=== PATIENT | male | born 1970 | race Caucasian/White ===

== ENCOUNTER → 2022-08-10 15:55 | Outpatient (CLI) | payer MEDICARE, MEDICAID, SELFPAY ==
[2022-08-10 19:47] LABS: Alanine Aminotransferase 173 U/L (12-78); Albumin Level 4.9 g/dl (3.5-5.0); Albumin/Globulin Ratio 1.5 (1.1-1.8); Alkaline Phosphatase 123 U/L (38-126); Anion Gap 22.7 mEq/L (5-15); Aspartate Amino Transferase 176 U/L (17-59); Bilirubin,Total 0.6 mg/dl (0.2-1.3); Blood Urea Nitrogen 14 mg/dl (9-20); Calcium 10.9 mg/dl (8.4-10.2); Carbon Dioxide 24 mmol/L (22.0-30.0); Chloride 97 mmol/L (98-107); Chol/HDL Ratio 2.9 (1-3.5); Cholesterol 234 mg/dl (140-200); Estimated Glomerular Filt Rate 71 ml/min (>60); GFR (African American) 86 ML/MIN (>60); Globulin 3.3 g/dL (1.3-3.2); Glucose 92 mg/dl (74-100); HDL Cholesterol 81 mg/dl (40-60); Potassium 4.7 mmoL/L (3.5-5.1); Sodium 139 mmol/L (136-145); Total Protein,Serum 8.2 g/dl (6.3-8.2); Triglycerides 161 mg/dl (30-150); VLDL Cholesterol 32 mg/dL (0-40)
[2022-08-10 19:58] LABS: Direct LDL Cholesterol 122.53 mg/dL (100-129)
[2022-08-10 20:10] LABS: Basophils # 0.1 K/mm3 (0-0.2); Basophils % 1.5 % (0.1-2.0); Eosinophils # 0.4 K/mm3 (0.0-0.4); Eosinophils % 4.3 % (0.1-12.0); Hemoglobin 16.1 g/dL (14.1-18.0); Lymphocytes # 3.2 K/mm3 (0.7-4.5); Lymphocytes % 35.9 % (10-50); Mean Corpuscular HGB Conc 31.5 g/dL (31.8-35.4); Mean Corpuscular Hemoglobin 35.4 pg (27.0-31.2); Mean Corpuscular Volume 112.5 fl (80-94); Mean Platelet Volume 9.5 fl (7.4-10.4); Monocytes # 0.8 K/mm3 (0.1-1.0); Monocytes % 8.8 % (1.7-9.3); Neutrophils # 4.5 K/mm3 (1.8-7.8); Neutrophils % 49.6 % (37.0-80.0); Platelet Count 281 K/mm3 (142-424); Red Blood Count 4.54 M/mm3 (4.60-6.20); Red Cell Distribution Width 13.8 % (11.5-17.5); White Blood Count 9.1 K/mm3 (4.8-10.8)
[2022-08-10 20:19] LABS: Prostate Specific Ag Screen 2.5 ng/ml (0.0-4.0); Thyroid Stimulating Hormone 0.99 uIU/mL (0.465-4.68)
[2022-08-10 20:38] LABS: Vitamin B12 388 pg/mL (239-931)
== END ==
PROVIDERS: PCP Nurse Practitioner; Visit Provider Nurse Practitioner
DX: E78.5 Hyperlipidemia, unspecified (principal); I10 Essential (primary) hypertension; K21.9 Gastro-esophageal reflux disease without esophagitis; Z86.718 Personal history of other venous thrombosis and embolism; Z12.5 Encounter for screening for malignant neoplasm of prostate
CPT/HCPCS: 80053; 80061; 82607; 84443; 85025; G0103

== ENCOUNTER → 2023-05-09 23:41 | Outpatient (CLI) | payer MEDICARE, MEDICAID, SELFPAY ==
[2023-05-09 19:07] LABS: Basophils # 0.1 K/mm3 (0-0.2); Basophils % 0.8 % (0.1-2.0); Eosinophils # 0.6 K/mm3 (0.0-0.4); Eosinophils % 4.3 % (0.1-12.0); Hematocrit 48.7 % (42.0-52.0); Hemoglobin 15.7 g/dL (14.1-18.0); Lymphocytes # 3.4 K/mm3 (0.7-4.5); Lymphocytes % 26.4 % (10-50); Mean Corpuscular HGB Conc 32.3 g/dL (31.8-35.4); Mean Corpuscular Volume 108.3 fl (80-94); Mean Platelet Volume 7.9 fl (7.4-10.4); Monocytes # 0.9 K/mm3 (0.1-1.0); Neutrophils # 7.8 K/mm3 (1.8-7.8); Neutrophils % 61.4 % (37.0-80.0); Platelet Count 311 K/mm3 (142-424); Red Cell Distribution Width 13.8 % (11.5-17.5); White Blood Count 12.7 K/mm3 (4.8-10.8)
[2023-05-09 19:20] LABS: Alanine Aminotransferase 81 U/L (12-78); Albumin Level 4.7 g/dl (3.5-5.0); Albumin/Globulin Ratio 1.3 (1.1-1.8); Alkaline Phosphatase 171 U/L (38-126); Anion Gap 22.5 mEq/L (5-15); Aspartate Amino Transferase 107 U/L (17-59); Bilirubin,Total 0.5 mg/dl (0.2-1.3); Blood Urea Nitrogen 11 mg/dl (9-20); Calcium 9.8 mg/dl (8.4-10.2); Carbon Dioxide 21 mmol/L (22.0-30.0); Chloride 104 mmol/L (98-107); Chol/HDL Ratio 2.6 (1-3.5); Cholesterol 187 mg/dl (140-200); Estimated Glomerular Filt Rate 64 ml/min (>60); GFR (African American) 78 ML/MIN (>60); Globulin 3.7 g/dL (1.3-3.2); Glucose 91 mg/dl (74-100); HDL Cholesterol 73 mg/dl (40-60); Hemoglobin A1C 5.5 % (4.0-6.0); Potassium 4.5 mmoL/L (3.5-5.1); Sodium 143 mmol/L (136-145); Total Protein,Serum 8.4 g/dl (6.3-8.2); Triglycerides 195 mg/dl (30-150); VLDL Cholesterol 39 mg/dL (0-40)
[2023-05-09 19:32] LABS: Direct LDL Cholesterol 84.55 mg/dL (100-129)
[2023-05-09 19:52] LABS: Thyroid Stimulating Hormone 2.05 uIU/mL (0.465-4.68)
[2023-05-09 20:11] LABS: Vitamin B12 218 pg/mL (239-931)
[2023-05-11 16:40] LABS: Microalbumin/Creatinine Ratio 17.2
[2023-05-11 16:48] LABS: Creatinine,Urine Random 40 mg/dL (Not Estab.)
== END ==
PROVIDERS: PCP Nurse Practitioner; Visit Provider Nurse Practitioner
DX: E78.5 Hyperlipidemia, unspecified (principal); I10 Essential (primary) hypertension; K21.9 Gastro-esophageal reflux disease without esophagitis; R73.01 Impaired fasting glucose; Z12.5 Encounter for screening for malignant neoplasm of prostate; Z86.718 Personal history of other venous thrombosis and embolism; G89.29 Other chronic pain; M79.604 Pain in right leg
CPT/HCPCS: 80053; 80061; 82043; 82570; 82607; 83036; 84443; 85025

== ENCOUNTER 2024-03-14 07:37 | Outpatient (CLI) | payer MEDICARE, MEDICAID, SELFPAY ==
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
--- NOTE | 2024-03-14 07:38 | ECG_ITS ---
APPROVED REPORT Exam: Resting ECG HR:83 bpm ECG Measurements Heart Rate 83 AXES NV 154 P 27 QRSd 100 QRS 25 QT 356 T 69 QTc 395 Conclusion SINUS RHYTHM NORMAL ECG UNCONFIRMED REPORT Electronically signed by : Ashish Garcia MD 03/18/2024 18:57:41
--- NOTE | 2024-03-14 07:40 | US_ITS ---
FINAL REPORT CLINICAL HISTORY: evaluation of cirrhosis COMPARISON: None FINDINGS: Sonographic images of the right upper quadrant were obtained. The pancreas is partially obscured. The portal vein is patent with normal directional flow. It is at the upper limits of normal in size measuring 13 mm. The liver has a coarse hepatic echotexture with a lobular contour consistent with cirrhosis. There is a small amount of ascites. The gallbladder appears normal without evidence of gallstones.There is no evidence of biliary ductal dilatation.The common duct measures 4mm. There are 2 probable cysts in the right kidney measuring 1.9 cm and 3 cm. Note is made of a right pleural effusion. IMPRESSION: Cirrhosis. Small amount of ascites. Small right pleural effusion. Reviewed, Interpreted and Dictated by Ab Rosa III, MD Transcribed by Melisa Garcia Authenticated and . [facility]
--- NOTE | 2024-03-14 08:40 | XR_ITS ---
FINAL REPORT CLINICAL HISTORY: BLE edema, chest discomfort, palpitations COMPARISON: None FINDINGS: Two views of the chest were obtained. The heart size and pulmonary vascularity are within normal limits. The mediastinum is normal. A large right pleural effusion is present. There are right base opacities present, favor atelectasis over pneumonia. There is no pneumothorax. Postoperative change is present in the left hemithorax. IMPRESSION: Large right pleural effusion, with right base opacities present, favor atelectasis over pneumonia. Reviewed, Interpreted and Dictated by Ab Rosa III, MD Transcribed by Mary Hayward Authenticated and [facility]
[2024-03-14 09:53] LABS: Basophils # 0.1 K/mm3 (0-0.2); Basophils % 1.2 % (0.1-2.0); Eosinophils # 0.4 K/mm3 (0.0-0.4); Eosinophils % 4.6 % (0.1-12.0); Lymphocytes # 1.8 K/mm3 (0.7-4.5); Lymphocytes % 21.3 % (10-50); Mean Corpuscular HGB Conc 34.9 g/dL (31.8-35.4); Mean Corpuscular Hemoglobin 39.8 pg (27.0-31.2); Mean Platelet Volume 7.5 fl (7.4-10.4); Monocytes # 0.7 K/mm3 (0.1-1.0); Monocytes % 8.2 % (1.7-9.3); Neutrophils # 5.3 K/mm3 (1.8-7.8); Neutrophils % 64.8 % (37.0-80.0); Platelet Count 237 K/mm3 (142-424); Red Blood Count 3.78 M/mm3 (4.60-6.20); Red Cell Distribution Width 15.1 % (11.5-17.5); White Blood Count 8.2 K/mm3 (4.8-10.8)
[2024-03-14 10:28] LABS: Creatinine,Urine Random 84 mg/dL (Not Estab.)
[2024-03-14 10:32] LABS: Alanine Aminotransferase 56 U/L (12-78); Albumin Level 4.3 g/dl (3.5-5.0); Albumin/Globulin Ratio 1.2 (1.1-1.8); Alkaline Phosphatase 147 U/L (38-126); Anion Gap 16.2 mEq/L (5-15); Aspartate Amino Transferase 88 U/L (17-59); Blood Urea Nitrogen 21 mg/dl (9-20); Calcium 10.1 mg/dl (8.4-10.2); Carbon Dioxide 27 mmol/L (22.0-30.0); Chloride 103 mmol/L (98-107); Cholesterol 184 mg/dl (140-200); Estimated Glomerular Filt Rate 53 ml/min (>60); GFR (African American) 65 ML/MIN (>60); Globulin 3.6 g/dL (1.3-3.2); Glucose 96 mg/dl (74-100); HDL Cholesterol 62 mg/dl (40-60); Potassium 4.2 mmoL/L (3.5-5.1); Sodium 142 mmol/L (136-145); Total Protein,Serum 7.9 g/dl (6.3-8.2); Triglycerides 156 mg/dl (30-150); VLDL Cholesterol 31 mg/dL (0-40)
[2024-03-14 10:43] LABS: Direct LDL Cholesterol 83.39 mg/dL (100-129)
[2024-03-14 10:44] LABS: Microalbumin < 6.000 mg/L (0-16.7)
[2024-03-14 11:01] LABS: Thyroid Stimulating Hormone 1.59 uIU/mL (0.465-4.68)
[2024-03-14 11:20] LABS: Vitamin B12 191 pg/mL (239-931)
[2024-03-14 11:54] LABS: Hemoglobin A1C 5.4 % (4.0-6.0)
== END 2024-03-14 23:59 | disposition home or self-care (01) ==
LOC: RAD 07:38
PROVIDERS: PCP Nurse Practitioner; Visit Provider Nurse Practitioner
DX: R07.9 Chest pain, unspecified (principal); R00.2 Palpitations; R60.0 Localized edema; R74.8 Abnormal levels of other serum enzymes; F10.10 Alcohol abuse, uncomplicated; I10 Essential (primary) hypertension; E78.5 Hyperlipidemia, unspecified; R73.01 Impaired fasting glucose; Z68.31 Body mass index [BMI] 31.0-31.9, adult; Z87.891 Personal history of nicotine dependence
CPT/HCPCS: 36415; 71046; 76705; 80050; 80053; 80061; 82043; 82570; 82607; 83036; 84443; 85025; 93005; 93306

== ENCOUNTER 2024-03-21 09:23 | Outpatient (CLI) | payer MEDICARE, MEDICAID, SELFPAY ==
--- NOTE | 2024-03-21 09:32 | CT_ITS ---
FINAL REPORT TECHNIQUE: Axial CT images of the abdomen and pelvis were obtained before and after the administration of IV contrast. This study was performed with techniques to keep radiation doses as low as reasonably achievable (ALARA). Individualized dose reduction techniques using automated exposure control or adjustment of mA and/or kV according to the patient''s size were employed. CLINICAL HISTORY: Palpable epigastric mass, epigastric pain, abnorma COMPARISON: None FINDINGS: Abdomen: There is a large right pleural effusion. Right middle lobe and lower lobe atelectasis is noted. There is bilateral gynecomastia. There is a large right posterior diaphragmatic hernia containing fat and the right kidney. The heart is normal in size. The liver has a mildly lobular contour likely representing cirrhosis. Gallstones are noted in the gallbladder. The spleen is unremarkable. A right adrenal nodule is favored to represent an adenoma with no follow-up recommended as this is likely benign. The pancreas has an unremarkable appearance. Bilateral renal cysts are noted. The aorta is normal in caliber. There are vascular calcifications. A small amount of ascites is noted. Precontrast images demonstrate no evidence of nephrolithiasis. Pelvis: The appendix is not well visualized. The urinary bladder is unremarkable. No inflammatory process is seen. There is no evidence of mass or adenopathy. There is no evidence of bowel obstruction. There is a left inguinal hernia containing fat. Postoperative changes are noted from fusion at L5-S1. IMPRESSION: Probable cirrhosis with a small amount of ascites. Large posterior diaphragmatic hernia containing the right kidney. Cholelithiasis. Large right pleural effusion and atelectasis. Reviewed, Interpreted and Dictated by Ab Rosa III, MD Transcribed by Melisa Garcia Authenticated and [facility]
[2024-03-21 10:00] LABS: Blood Urea Nitrogen 18 mg/dl (9-20); Estimated Glomerular Filt Rate 71 ml/min (>60); GFR (African American) 85 ML/MIN (>60)
[2024-03-21] MEDS: IOPAMIDOL-370 (76%);100ML BOTTLE 75 ML IV (10:42)
[2024-03-21] MEDS: SODIUM CHLORIDE 0.9% 10ML SYR (RAD ONLY) 10 ML IV (10:42)
== END 2024-03-21 23:59 | disposition home or self-care (01) ==
LOC: RAD 09:23
PROVIDERS: PCP Nurse Practitioner; Visit Provider Nurse Practitioner
DX: R10.9 Unspecified abdominal pain (principal); Z83.79 Family history of other diseases of the digestive system; R74.8 Abnormal levels of other serum enzymes; F10.10 Alcohol abuse, uncomplicated
CPT/HCPCS: 36415; 74178; 82565; 84520; Q9967

== ENCOUNTER 2024-03-29 15:41 | Outpatient (CLI) | payer MEDICARE, MEDICAID, SELFPAY | END 2024-03-29 23:59 | disposition home or self-care (01) | PROVIDERS: PCP Nurse Practitioner; Visit Provider Physician Assistant | DX: R00.2 Palpitations (principal) | CPT/HCPCS: 93270 ==

== ENCOUNTER 2024-04-04 12:57 | Outpatient (CLI) | payer MEDICARE, MEDICAID, SELFPAY ==
[2024-04-04 13:57] LABS: Anion Gap 15.4 mEq/L (5-15); Blood Urea Nitrogen 36 mg/dl (9-20); Calcium 10.2 mg/dl (8.4-10.2); Carbon Dioxide 26 mmol/L (22.0-30.0); Chloride 100 mmol/L (98-107); Estimated Glomerular Filt Rate 35 ml/min (>60); GFR (African American) 43 ML/MIN (>60); Glucose 99 mg/dl (74-100); Potassium 4.4 mmoL/L (3.5-5.1); Sodium 137 mmol/L (136-145)
== END 2024-04-04 23:59 | disposition home or self-care (01) ==
PROVIDERS: PCP Nurse Practitioner; Visit Provider Physician Assistant
DX: K70.31 Alcoholic cirrhosis of liver with ascites (principal); J90 Pleural effusion, not elsewhere classified; R00.2 Palpitations; F10.10 Alcohol abuse, uncomplicated; R06.02 Shortness of breath; R07.89 Other chest pain; Z86.718 Personal history of other venous thrombosis and embolism; K21.9 Gastro-esophageal reflux disease without esophagitis; E78.49 Other hyperlipidemia; I10 Essential (primary) hypertension
CPT/HCPCS: 36415; 80048

== ENCOUNTER 2024-04-11 14:54 | Outpatient (CLI) | payer MEDICARE, MEDICAID, SELFPAY ==
[2024-04-11 16:09] LABS: Anion Gap 14.8 mEq/L (5-15); Blood Urea Nitrogen 21 mg/dl (9-20); Calcium 10.2 mg/dl (8.4-10.2); Carbon Dioxide 26 mmol/L (22.0-30.0); Chloride 104 mmol/L (98-107); Estimated Glomerular Filt Rate 64 ml/min (>60); GFR (African American) 77 ML/MIN (>60); Glucose 105 mg/dl (74-100); Potassium 4.8 mmoL/L (3.5-5.1); Sodium 140 mmol/L (136-145)
== END 2024-04-11 23:59 | disposition home or self-care (01) ==
LOC: LAB 14:55
PROVIDERS: PCP Nurse Practitioner; Visit Provider Physician Assistant
DX: E86.0 Dehydration (principal)
CPT/HCPCS: 36415; 80048

== ENCOUNTER 2024-04-16 13:20 | Outpatient (CLI) | payer MEDICARE, MEDICAID, SELFPAY ==
--- NOTE | 2024-04-16 13:20 | CT_ITS ---
FINAL REPORT TECHNIQUE: The patient was injected with IV contrast. Axial images were obtained of the chest by computed tomography. Precontrast images were also obtained. This study was performed with techniques to keep radiation doses as low as reasonably achievable (ALARA). Individualized dose reduction techniques using automated exposure control or adjustment of mA and/or kV according to the patient's size were employed. CLINICAL HISTORY: chest pain COMPARISON: CT abdomen and pelvis 03/21/2024 FINDINGS: CT OF THE CHEST WITH AND WITHOUT CONTRAST: There is no axillary adenopathy. There are small mediastinal nodes. Bilateral gynecomastia is noted. Heart size is normal. There is no pericardial effusion. There is a large right pleural effusion. Significant atelectasis is noted involving the right middle lobe and right lower lobe. There is a large right posterior diaphragmatic hernia containing the right kidney and fat, stable compared to the prior study. The liver has a lobular contour, likely representing cirrhosis. There is a stable right adrenal nodule. There are several mildly enlarged portal and portacaval nodes which are stable, nonspecific, and favored to be reactive. Multiple right renal cysts are noted. IMPRESSION: Large diaphragmatic hernia as described, large right pleural effusion, and atelectasis in the right middle lobe and right lower lobe. Appearance is stable compared to the prior study. Other findings are also stable. Reviewed, Interpreted and Dictated by Ab Rosa III, MD Transcribed by Melisa Garcia Authenticated and [facility]
[2024-04-16] MEDS: SODIUM CHLORIDE 0.9% 10ML SYR (RAD ONLY) 10 ML IV (13:46)
[2024-04-16] MEDS: IOPAMIDOL-370 (76%);100ML BOTTLE 75 ML IV (13:46)
== END 2024-04-16 23:59 | disposition home or self-care (01) ==
LOC: RAD 13:20
PROVIDERS: PCP Nurse Practitioner; Visit Provider Physician Assistant
DX: R07.89 Other chest pain (principal); R06.02 Shortness of breath; K44.9 Diaphragmatic hernia without obstruction or gangrene; J90 Pleural effusion, not elsewhere classified; J98.11 Atelectasis; Z87.891 Personal history of nicotine dependence
CPT/HCPCS: 71270; Q9967

== ENCOUNTER 2024-04-27 10:15 | Outpatient (CLI) | payer MEDICARE, MEDICAID, SELFPAY ==
[2024-04-27] VITALS (8 sets, daily range): BP systolic 103–133; BP diastolic 63–86; PULSE 84–94; RESP 16–18; TEMP 36.4–36.5; O2SAT 92–96; BMI 31.2
--- NOTE | 2024-04-27 10:16 | US_ITS ---
FINAL REPORT CLINICAL HISTORY: Right effusion - HOSEA MORAN -- 950 ML REMOVED FINDINGS: ULTRASOUND GUIDED RIGHT THORACENTESIS HISTORY: Right pleural effusion. ATTENDING PHYSICIAN: Dr. Rosa PHYSICIAN SINGLE RESOURCE BOSS: Sweetie Guerin PA-C TECHNIQUE: Informed consent was obtained from the patient. RiskS of the procedure were discussed with the patient prior to beginning. This included, but was not limited to, risk of pneumothorax requiring chest tube placement. Appropriate pocket was localized for drainage. The patient was prepped and draped in routine fashion over the right back. Local anesthesia was achieved with 1% lidocaine. Using imaging guidance with images acquired, an 18-gauge sheath needle was directed into the pleural fluid. Approximately 950 mL of fluid was aspirated. 150 mL was sent for laboratory analysis. Patient tolerated the procedure well and left the department in good condition. IMPRESSION: Successful ultrasound guided right thoracentesis. Reviewed, Interpreted and Dictated by Ab Rosa III, MD Transcribed by Sweetie Guerin PA-C Authenticated and [facility]
--- NOTE | 2024-04-27 10:58 | XR_ITS ---
FINAL REPORT CLINICAL HISTORY: Pleural effusion, Post thoracentesis COMPARISON: 03/14/2024 FINDINGS: Two views of the chest were obtained. The heart size and pulmonary vascularity are within normal limits. There are postoperative changes in the medial left thorax. There is a moderate right pleural effusion. Right base atelectasis is noted. There is no pneumothorax. The bony thorax is intact. IMPRESSION: Moderate right pleural effusion and right base atelectasis. Postoperative changes without pneumothorax. Reviewed, Interpreted and Dictated by Ab Rosa III, MD Transcribed by Melisa Garcia Authenticated and [facility]
[2024-04-27 13:40] LABS: Source, Body Fld. Thoracentesis Fluid; Volume,Body Fld. 950 mL
[2024-04-27 13:41] LABS: Appearance,Body Fld. Hazy; TNC,Body Fluid 3874 cells/uL (< 1000)
[2024-04-27 13:42] LABS: RBC,Body Fluid < 10 cells/uL (< 10 X 10^3)
[2024-04-27 14:29] LABS: Mononuclear WBCs,Body Fluid 80 %; Polynuclear WBC,Body Fluid 20 %
[2024-04-27 14:46] LABS: Lactate Dehydrogenase 198 U/L (313-618)
[2024-04-27 15:03] LABS: Albumin Level 4.5 g/dl (3.5-5.0); Chloride 106 mmol/L (98-107); Sodium 141 mmol/L (136-145)
[2024-04-27 15:06] LABS: Alanine Aminotransferase 104 U/L (12-78); Albumin/Globulin Ratio 1.3 (1.1-1.8); Alkaline Phosphatase 130 U/L (38-126); Aspartate Amino Transferase 95 U/L (17-59); Bilirubin,Total 0.7 mg/dl (0.2-1.3); Blood Urea Nitrogen 18 mg/dl (9-20); Carbon Dioxide 28 mmol/L (22.0-30.0); Creatinine Clearance Estimated 94 mL/min (50-200); Estimated Glomerular Filt Rate 58 ml/min (>60); GFR (African American) 70 ML/MIN (>60); Globulin 3.5 g/dL (1.3-3.2)
[2024-04-27 15:07] LABS: Calcium 9.8 mg/dl (8.4-10.2); Glucose 89 mg/dl (74-100)
[2024-04-29 22:07] LABS: Albumin, Body Fluid 3.6 g/dL (Not Estab.); LD, Body Fluid 165 IU/L (.); Protein, Body Fluid 5.8 g/dL (.)
== END 2024-04-27 13:38 | disposition home or self-care (01) ==
PROVIDERS: PCP Nurse Practitioner; Visit Provider Internal Medicine Pulmonary Disease
DX: J90 Pleural effusion, not elsewhere classified (principal)
CPT/HCPCS: 32555; 36415; 71046; 80053; 82042; 83615; 84155; 87070; 87205; 88112; 88305; 89051

== ENCOUNTER 2024-05-09 15:27 | Outpatient (CLI) | payer MEDICARE, MEDICAID, SELFPAY ==
[2024-05-09 16:28] LABS: Chloride 107 mmol/L (98-107); Potassium 4.7 mmoL/L (3.5-5.1); Sodium 138 mmol/L (136-145)
[2024-05-09 16:31] LABS: Anion Gap 12.7 mEq/L (5-15); Blood Urea Nitrogen 19 mg/dl (9-20); Calcium 9.7 mg/dl (8.4-10.2); Carbon Dioxide 23 mmol/L (22.0-30.0); Estimated Glomerular Filt Rate 53 ml/min (>60); GFR (African American) 65 ML/MIN (>60); Glucose 107 mg/dl (74-100)
== END 2024-05-09 23:59 | disposition home or self-care (01) ==
LOC: LAB 15:31
PROVIDERS: Internal Medicine Pulmonary Disease; PCP Nurse Practitioner; Visit Provider Physician Assistant
DX: K74.60 Unspecified cirrhosis of liver (principal)
CPT/HCPCS: 36415; 80048

== ENCOUNTER 2024-05-11 07:50 | Outpatient (CLI) | payer MEDICARE, MEDICAID, SELFPAY ==
--- NOTE | 2024-05-11 07:51 | US_ITS ---
FINAL REPORT CLINICAL HISTORY: .evaluate for fluid COMPARISON: None FINDINGS: ULTRASOUND ABDOMEN LIMITED: A limited ultrasound exam of the abdomen was performed in the right upper quadrant, the left upper quadrant, the left lower quadrant, and the right lower quadrant, to evaluate for the presence of ascites. No ascites was seen in any location within the abdomen, although a right pleural effusion was noted. IMPRESSION: Limited exam fails to reveal any ascitic fluid in the abdomen. A right pleural effusion is present. Reviewed, Interpreted and Dictated by Oren Aragon MD Transcribed by Mary Hayward Authenticated and [facility]
== END 2024-05-11 23:59 | disposition home or self-care (01) ==
LOC: RAD 07:51
PROVIDERS: PCP Nurse Practitioner; Visit Provider Internal Medicine Pulmonary Disease
DX: K70.30 Alcoholic cirrhosis of liver without ascites (principal); J90 Pleural effusion, not elsewhere classified
CPT/HCPCS: 76705

== ENCOUNTER 2024-07-03 08:40 | Outpatient (CLI) | payer MEDICARE, MEDICAID, SELFPAY ==
--- NOTE | 2024-07-03 | US_ITS ---
PROCEDURE INFORMATION: Exam: US Chest, Pleural Spaces Exam date and time: 07/03/2024 9:21 AM Age: 53 years old Clinical indication: Condition or disease; Other: RT pleural effusion TECHNIQUE: Imaging protocol: Real time ultrasound of the chest was performed with image documentation. Exam focused on the pleural spaces. COMPARISON: US CHEST 07/03/2024 9:21 AM FINDINGS: Pleural spaces: See Soft tissues finding. Soft tissues: Ultrasonographic images of the soft tissues in questions/right chest. Small to moderate sized pleural effusion. IMPRESSION: Ultrasonographic images of the soft tissues in questions/right chest. Small to moderate sized pleural effusion.
--- NOTE | 2024-07-03 08:54 | US_ITS ---
PROCEDURE INFORMATION: Exam: US Abdomen, Limited; Right Upper Quadrant Exam date and time: 07/03/2024 8:45 AM Age: 53 years old Clinical indication: Condition or disease; Liver condition; Cirrhosis; Alcoholic; Additional info: Screening TECHNIQUE: Imaging protocol: Real time ultrasound of the abdomen with image documentation. Limited exam focused on the right upper quadrant. Total images: 66 COMPARISON: US ABDOMEN LIMITED 05/11/2024 7:56 AM FINDINGS: Pleural spaces: Right pleural effusion. Liver: Heterogeneous appearance of the liver. Gallbladder: Multiple calcified gallstones are present. Biliary ducts: Common bile duct measures 4 mm. Pancreas: Visualized pancreas is unremarkable. Right kidney: Normal. No mass. No hydronephrosis. Intraperitoneal space: No free fluid. IMPRESSION: 1. Heterogeneous appearance of the liver. 2. Multiple calcified gallstones are present. 3. Right pleural effusion.
[2024-07-03 09:22] LABS: Alanine Aminotransferase 169 U/L (12-78); Albumin Level 5.1 g/dl (3.5-5.0); Albumin/Globulin Ratio 1.2 (1.1-1.8); Alkaline Phosphatase 143 U/L (38-126); Anion Gap 19.3 mEq/L (5-15); Aspartate Amino Transferase 154 U/L (17-59); Bilirubin,Total 1.1 mg/dl (0.2-1.3); Blood Urea Nitrogen 49 mg/dl (9-20); Calcium 10.3 mg/dl (8.4-10.2); Carbon Dioxide 22 mmol/L (22.0-30.0); Chloride 103 mmol/L (98-107); Estimated Glomerular Filt Rate 38 ml/min (>60); GFR (African American) 45 ML/MIN (>60); Globulin 4.1 g/dL (1.3-3.2); Glucose 103 mg/dl (74-100); Potassium 4.3 mmoL/L (3.5-5.1); Sodium 140 mmol/L (136-145); Total Protein,Serum 9.2 g/dl (6.3-8.2)
== END 2024-07-03 23:59 | disposition home or self-care (01) ==
LOC: RAD 08:41
PROVIDERS: PCP Nurse Practitioner; Visit Provider Internal Medicine
DX: K72.90 Hepatic failure, unspecified without coma (principal); K74.60 Unspecified cirrhosis of liver; R18.8 Other ascites; K70.30 Alcoholic cirrhosis of liver without ascites
CPT/HCPCS: 36415; 76604; 76705; 80053

== ENCOUNTER 2024-07-17 14:57 | Outpatient (CLI) | payer MEDICARE, MEDICAID, SELFPAY ==
[2024-07-17 16:06] LABS: Alanine Aminotransferase 123 U/L (12-78); Albumin Level 4.1 g/dl (3.5-5.0); Albumin/Globulin Ratio 1.4 (1.1-1.8); Alkaline Phosphatase 122 U/L (38-126); Anion Gap 14.3 mEq/L (5-15); Aspartate Amino Transferase 74 U/L (17-59); Bilirubin,Total 0.8 mg/dl (0.2-1.3); Blood Urea Nitrogen 23 mg/dl (9-20); Calcium 9.7 mg/dl (8.4-10.2); Carbon Dioxide 21 mmol/L (22.0-30.0); Chloride 110 mmol/L (98-107); Estimated Glomerular Filt Rate 64 ml/min (>60); GFR (African American) 77 ML/MIN (>60); Glucose 84 mg/dl (74-100); Potassium 4.3 mmoL/L (3.5-5.1); Sodium 141 mmol/L (136-145); Total Protein,Serum 7.1 g/dl (6.3-8.2)
== END 2024-07-17 23:59 | disposition home or self-care (01) ==
LOC: LAB 14:58
PROVIDERS: PCP Nurse Practitioner; Visit Provider Internal Medicine
DX: K72.90 Hepatic failure, unspecified without coma (principal); K74.60 Unspecified cirrhosis of liver
CPT/HCPCS: 36415; 80053

== ENCOUNTER 2024-07-26 15:01 | Outpatient (CLI) | payer MEDICARE, MEDICAID, SELFPAY ==
[2024-07-26 15:37] LABS: Alanine Aminotransferase 135 U/L (12-78); Albumin Level 4.4 g/dl (3.5-5.0); Albumin/Globulin Ratio 1.4 (1.1-1.8); Alkaline Phosphatase 165 U/L (38-126); Anion Gap 17.1 mEq/L (5-15); Aspartate Amino Transferase 81 U/L (17-59); Bilirubin,Total 1.1 mg/dl (0.2-1.3); Blood Urea Nitrogen 22 mg/dl (9-20); Calcium 9.9 mg/dl (8.4-10.2); Carbon Dioxide 18 mmol/L (22.0-30.0); Chloride 108 mmol/L (98-107); Estimated Glomerular Filt Rate 64 ml/min (>60); GFR (African American) 77 ML/MIN (>60); Globulin 3.2 g/dL (1.3-3.2); Glucose 115 mg/dl (74-100); Potassium 4.1 mmoL/L (3.5-5.1); Sodium 139 mmol/L (136-145); Total Protein,Serum 7.6 g/dl (6.3-8.2)
== END 2024-07-26 23:59 | disposition home or self-care (01) ==
LOC: LAB 15:03
PROVIDERS: PCP Nurse Practitioner; Visit Provider Internal Medicine
DX: K72.90 Hepatic failure, unspecified without coma (principal); K74.60 Unspecified cirrhosis of liver
CPT/HCPCS: 36415; 80053

== ENCOUNTER 2024-10-03 14:15 | Outpatient (CLI) | payer MEDICARE, MEDICAID, SELFPAY ==
[2024-10-03 18:01] LABS: Basophils # 0.1 K/mm3 (0-0.2); Basophils % 0.9 % (0.1-2.0); Eosinophils # 0.4 K/mm3 (0.0-0.4); Eosinophils % 3.2 % (0.1-12.0); Hematocrit 45.1 % (42.0-52.0); Hemoglobin 14.8 g/dL (14.1-18.0); Lymphocytes # 3.5 K/mm3 (0.7-4.5); Lymphocytes % 27.6 % (10-50); Mean Corpuscular HGB Conc 32.8 g/dL (31.8-35.4); Mean Corpuscular Volume 100.7 fl (80-94); Monocytes # 1.2 K/mm3 (0.1-1.0); Monocytes % 9.3 % (1.7-9.3); Neutrophils # 7.4 K/mm3 (1.8-7.8); Neutrophils % 58.8 % (37.0-80.0); Platelet Count 286 K/mm3 (142-424); Red Blood Count 4.48 M/mm3 (4.60-6.20); Red Cell Distribution Width 12.1 % (11.5-17.5); White Blood Count 12.6 K/mm3 (4.8-10.8)
[2024-10-03 18:42] LABS: Alanine Aminotransferase 70 U/L (12-78); Albumin/Globulin Ratio 1.4 (1.1-1.8); Alkaline Phosphatase 132 U/L (38-126); Anion Gap 18.9 mEq/L (5-15); Aspartate Amino Transferase 57 U/L (17-59); Blood Urea Nitrogen 23 mg/dl (9-20); Calcium 10.4 mg/dl (8.4-10.2); Carbon Dioxide 26 mmol/L (22.0-30.0); Chloride 103 mmol/L (98-107); Chol/HDL Ratio 2.7 (1-3.5); Cholesterol 130 mg/dl (140-200); Estimated Glomerular Filt Rate 58 ml/min (>60); GFR (African American) 70 ML/MIN (>60); Globulin 3.5 g/dL (1.3-3.2); Glucose 110 mg/dl (74-100); HDL Cholesterol 48 mg/dl (40-60); Potassium 3.9 mmoL/L (3.5-5.1); Sodium 144 mmol/L (136-145); Total Protein,Serum 8.5 g/dl (6.3-8.2); Triglycerides 209 mg/dl (30-150); VLDL Cholesterol 42 mg/dL (0-40)
[2024-10-03 18:54] LABS: Direct LDL Cholesterol 50.03 mg/dL (100-129)
[2024-10-03 18:58] LABS: Hemoglobin A1C 5.7 % (4.0-6.0)
[2024-10-03 19:13] LABS: Prostate Specific Ag Screen 2.9 ng/ml (0.0-4.0); Thyroid Stimulating Hormone 0.56 uIU/mL (0.465-4.68)
[2024-10-03 19:31] LABS: Creatinine,Urine Random 35 mg/dL (Not Estab.); Microalbumin < 6.000 mg/L (0-16.7)
[2024-10-03 19:32] LABS: Vitamin B12 998 pg/mL (239-931)
== END 2024-10-03 23:59 | disposition home or self-care (01) ==
LOC: LAB.DROPOF 10-04 10:24
PROVIDERS: PCP Nurse Practitioner; Visit Provider Nurse Practitioner
DX: I10 Essential (primary) hypertension (principal); E78.49 Other hyperlipidemia; K21.9 Gastro-esophageal reflux disease without esophagitis; R73.01 Impaired fasting glucose; K70.31 Alcoholic cirrhosis of liver with ascites; Z12.5 Encounter for screening for malignant neoplasm of prostate
CPT/HCPCS: 80053; 80061; 82043; 82570; 82607; 83036; 84443; 85025; G0103

== ENCOUNTER 2024-10-29 15:57 | Outpatient (CLI) | payer MEDICARE, MEDICAID, SELFPAY ==
--- NOTE | 2024-10-29 16:00 | XR_ITS ---
FINAL REPORT CLINICAL HISTORY: chronic left knee pain FINDINGS: AP, lateral and oblique views of the left knee were obtained. There is no prior exam for comparison. There is no acute osseous abnormality of the left knee. The joint space is preserved. The soft tissues are normal. There is no joint effusion. IMPRESSION: No acute osseous abnormality of the left knee. Reviewed, Interpreted and Dictated by Chiquita Kaur MD Transcribed by Carmen Painting Authenticated and [facility]
--- NOTE | 2024-10-29 16:00 | XR_ITS ---
FINAL REPORT CLINICAL HISTORY: chronic right hip pain COMPARISON: None FINDINGS: Two views of the right hip and an AP pelvis view were obtained. There is no acute osseous abnormality of the pelvis right hip. The joint space is preserved. There are surgical changes of the lumbosacral junction. Soft tissues are unremarkable. IMPRESSION: No acute osseous abnormality of the right hip. Reviewed, Interpreted and Dictated by Chiquita Kaur MD Transcribed by Carmen Painting Authenticated and [facility]
[2024-10-29 17:43] LABS: Albumin Level 4.4 g/dl (3.5-5.0); Chloride 106 mmol/L (98-107); Potassium 4.8 mmoL/L (3.5-5.1); Sodium 140 mmol/L (136-145)
[2024-10-29 17:46] LABS: Alanine Aminotransferase 44 U/L (12-78); Albumin/Globulin Ratio 1.4 (1.1-1.8); Alkaline Phosphatase 140 U/L (38-126); Anion Gap 14.8 mEq/L (5-15); Aspartate Amino Transferase 41 U/L (17-59); Bilirubin,Total 1.2 mg/dl (0.2-1.3); Blood Urea Nitrogen 18 mg/dl (9-20); Carbon Dioxide 24 mmol/L (22.0-30.0); Estimated Glomerular Filt Rate 58 ml/min (>60); GFR (African American) 70 ML/MIN (>60); Globulin 3.1 g/dL (1.3-3.2); Glucose 87 mg/dl (74-100); Total Protein,Serum 7.5 g/dl (6.3-8.2)
== END 2024-10-29 23:59 | disposition home or self-care (01) ==
LOC: RAD 15:58
PROVIDERS: PCP Nurse Practitioner; Visit Provider Nurse Practitioner
DX: M25.551 Pain in right hip (principal); G89.29 Other chronic pain; M25.562 Pain in left knee; K74.60 Unspecified cirrhosis of liver
CPT/HCPCS: 36415; 73502; 73562; 80053

== ENCOUNTER 2024-11-19 14:27 | Outpatient (CLI) | payer MEDICARE, MEDICAID, SELFPAY ==
--- NOTE | 2024-11-19 14:27 | CT_ITS ---
FINAL REPORT CLINICAL HISTORY: lung cancer screening former smoker quit 2 years ago, 1 ppd 30 years FINDINGS: Axial images were obtained from the lung apex to the mid abdomen by computed tomography. Low-dose protocol was utilized. CTDl vol(mGy): 2.90 DLP (mGy-cm): 107.33 FINDINGS: There is no axillary adenopathy. There is no hilar or mediastinal adenopathy. The heart size is normal. Previously noted large right pleural effusion has nearly completely resolved. There is scarring in the right lower lobe. There is volume loss in the right hemithorax. There is no suspicious pulmonary mass or nodule. Limited images of the upper abdomen demonstrate no acute abnormality. IMPRESSION: Near complete resolution of previously noted large right pleural effusion. No suspicious pulmonary mass or nodule. Lung RADS category 1. Follow-up low-dose chest CT in 12 months is recommended. Scarring and volume loss in the right lung. Lung RADS category S. Scarring and volume loss in the right lung. Reviewed, Interpreted and Dictated by Oren Aragon MD Transcribed by Johanna Bagley Authenticated and [facility]
[2024-11-19 15:35] VITALS: PULSE 55; PULSE 57
[2024-11-19] MEDS: ALBUTEROL 0.083% 2.5 MG/3 ML NEB IH (15:35)
== END 2024-11-19 23:59 | disposition home or self-care (01) ==
LOC: RAD 14:27
PROVIDERS: PCP Nurse Practitioner; Visit Provider Internal Medicine Pulmonary Disease
DX: F17.210 Nicotine dependence, cigarettes, uncomplicated (principal); R06.09 Other forms of dyspnea
CPT/HCPCS: 71271; 94060; 94618; 94640; 94726; 94729; J7613

== ENCOUNTER 2025-02-01 09:08 | Outpatient (CLI) | payer MEDICARE, MEDICAID, SELFPAY ==
--- NOTE | 2025-02-01 09:11 | US_ITS ---
FINAL REPORT TECHNIQUE: Multiple transverse and longitudinal images CLINICAL HISTORY: DECOMPENSATED CIRRHOSIS COMPARISON: 03/14/2024 FINDINGS: There is coarsening of the echotexture of the liver, also seen on prior exams, consistent with the clinical diagnosis of cirrhosis. No focal masses identified in the liver. There are gallstones present in the gallbladder without evidence of gallbladder wall thickening or biliary ductal dilatation. The pancreas is not well-seen on this exam. There is a hypoechoic focus in the right kidney, measuring up to 37 mm in size, with an appearance consistent with a benign cyst. IMPRESSION: 1. Cirrhosis of the liver is present, as seen on prior ultrasound examinations. 2. No focal mass is identified in the liver. 3. Uncomplicated cholelithiasis. Reviewed, Interpreted and Dictated by Levi Fontaine MD Transcribed by Mary Hayward Authenticated and [facility]
== END 2025-02-01 23:59 | disposition home or self-care (01) ==
LOC: RAD 09:09
PROVIDERS: PCP Nurse Practitioner; Visit Provider Internal Medicine
DX: K74.69 Other cirrhosis of liver (principal); K72.90 Hepatic failure, unspecified without coma; K80.20 Calculus of gallbladder without cholecystitis without obstruction
CPT/HCPCS: 76705

== ENCOUNTER → 2025-03-18 07:17 | Outpatient (CLI) | payer MEDICARE, MEDICAID, SELFPAY ==
--- OUTSIDE RECORDS SUMMARY | 2025-03-18 07:19 | XMS_ITS | Encounter Summary ---
Author Organization [facility] Address [address] [place] [address] Care Team Providers Care Japanese Professor Name Role Phone EnydZeynep schmitt Gm TRUONG Primary Care Provider [phone] Encounter Details Date Type Department Care Team (Late Contact Info) Description 02/19/2025 Results Follow-Up [facility] [address] [place] [address] Monica Bee MD [address] [place] [address] Social History Tobacco Use Types Packs/Day Years Used Date Smoking Tobacco: Former Cigarettes 0.5 31.7 0 09/12/1991 - 05/13/2023 Passive Smoke Exposure: Past Smokeless Tobacco: Never Alcohol Use Standard Drinks/Week Comments Not Currently 4 (1 standard drink = 0.6 oz pur e alcohol) PHQ-2 Answer Date Recorded Patient Health Questionnaire-2 Score 0 11/01/2024 PHQ-9 Answer Date Recorded Patient Health Questionnaire-9 Score 0 11/01/2024 Sex and Gender Information Value Date Recorded Sex Assigned at Not on file Legal Sex Male 8:29 PM EDT Gender Identity Not on file Sexual Orientation Not on file documented as of this encounter Plan of Treatment Upcoming Encounters Date Type Department Care Team (Late st Contact Info) Description 04/09/2025 9:00 AM EDT Clinical Support [facility] [address] [place] [address] Tiffany Leon, KALEB [address] [facility] [address] [place] [address] 07/18/2025 8:00 AM EST Office Visit [facility] [address] [place] [address] Sheyla Colin MD [address] [place] [address] documented as of this encounter Visit Diagnoses Not on filedocumented in this encounter Additional Health Concerns Assessment Noted Time PHQ-9 Depression Total Score: 0 11/01/19 25 10:26 AM EST A fall risk assessment has been complete d for the patient 01/10/2025 8:13 AM EDT A Body Mass Index follow-up plan has been documented for the patient 01/17/2025 12:04 AM EDT documented as of this encounter Care Teams Japanese Professor Relationship Specialty Start Date End Date Zeynep Schumacher APRN [address] [place] [address] PCP - General 06/21/24 documented as of this encounter
--- OUTSIDE RECORDS SUMMARY | 2025-03-18 07:19 | XMS_ITS | Encounter Summary ---
Author Organization [facility] Address [address] [place] [address] Care Team Providers Care Children'S Attendant Name Role Phone EndyZeynep schmitt Gm TRUONG Primary Care Provider [phone] Encounter Details Date Type Department Care Team (Late st Contact Info) Description 01/10/2025 Results Follow-Up [facility] Specialties [address] [place] [address] Leonardo Bautista MD [address] [place] [address] Social History Tobacco Use Types [...] Description 04/09/2025 9:00 AM EDT Clinical Support [facility] [address] [place] [address] Tiffany Leon, KALEB [address] [place] [address] 07/18/2025 8:00 AM EST Office Visit [facility] [address] [place] [address] Sheyla Colin MD [address] [place] [address] documented as of this encounter [...] documented as of this encounter Care Teams Children'S Attendant Relationship Specialty Start Date End Date Zeynep Schumacher APRN [address] [place] [address] PCP - General 06/21/24 documented as of this encounter
--- OUTSIDE RECORDS SUMMARY | 2025-03-18 07:19 | XMS_ITS | Continuity of Care Document ---
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 - 0.5 x10(3)/[facility] 02/18/2022 9:23 AM EDT [facility] Baso # 0.0 0.0 - 0.1 x10(3)/[facility] 02/18/2022 9:23 AM EDT [facility] Blood VENOUS BLOOD / Unknown Venipuncture / Unknown 02/18/2022 8:03 AM EDT 02/18/2022 8:15 AM EDT us Alexandru Chapman MD HEMATOLOGY ORDERABLES Final Result [facility] [address] [facility] , [address] [place] [id number] * (ABNORMAL) PARTIAL THROMBOPLASTIN TIME (02/18/2022 8:02 AM EDT) Only the most recent of8 resultswithin the time period is included. [facility] PTT 60.4(H) 27.9 - 38.7 second(s) 02/18/2022 8:32 AM EDT [facility] Comment: Therapeutic range for unfractionated heparin: 50.1 - 98.7 seconds Therapeutic range for direct thrombin inhibitors: Argatroban is 1.5 to 3 times the aPTT baseline. Lepirudin is 1.5 to 2 times the aPTT baseline. The aPTT should not exceed 100 seconds. The dosage of Argatroban should be decreased in patients with hepatic impairment. The dosage of Lepirudin should be decreased in renal insufficiency. Blood VENOUS BLOOD / Unknown Venipuncture / Unknown 02/18/2022 8:02 AM EDT 02/18/2022 8:17 AM EDT us Rima Venegas MD HEMATOLOGY ORDERABLES Final R esult [facility] [address] [facility] , [place] [address] * (ABNORMAL) BASIC METABOLIC PANEL (02/18/2022 8:02 AM EDT) Only the most recent of22 resultswithin the time period is included. Sodium 138 136 - 145 mmol/L 02/18/2022 9:21 AM EDT [facility] Potassium 02/18/2022 9:21 AM EDT [facility] Comment:Unable to result pot assium due to elevated hemolysis. Chloride 105 98 - 107 mmol/L 02/18/2022 9:21 AM EDT [facility] Total CO2 17(L) 22 - 29 mmol/L 02/18/2022 9:21 AM EDT [facility] Anion Gap 16 7 - 16 mmol/L 02/18/2022 9:21 AM EDT [facility] Calcium 8.6 8.6 - 10.4 mg/dL 02/18/2022 9:21 AM EDT [facility] Glucose Lvl 86 74 - 100 mg/dL 02/18/2022 9:21 AM EDT [facility] BUN 10 6 - 20 mg/dL 02/18/2022 9:21 AM EDT [facility] Creatinine 1.06 0.67 - 1.30 mg/dL 02/18/2022 9:21 AM EDT [facility] eGFR (CKD-EPIcr 2020) 86 >=60 mL/min/1.7 3 m2 02/18/2022 9:21 AM EDT [facility] Comment:Estimated GFR was ca lculated using the CKD-EPIcr (2020) equation refit without race. The equation is recommended by the National Kidney Foundation - [place] Society of Nephrology Task Force. Blood VENOUS BLOOD / Unknown Venipuncture / Unknown 02/18/2022 8:02 AM EDT 02/18/2022 8:17 AM EDT us Alexandru Chapman MD CHEMISTRY ORDERABLES Final R esult Performing Organization Address City/[facility] Co de Phone Number [facility] [address] [facility], [place] [address] [facility] [address] [place] [address] * ECG AND WAVEFORMS - TELEMETRY (02/17/2022 8:53 PM EDT) Only the most recent of22 resultswithin the time period is included. ECG INTERPRET NSR [facility] 02/17/2022 8:53 PM EDT Narrative [facility] - 02/17/2022 8:56 PM EDT BA/ HICUITY ROUTINE IN 0.16 QRS 0.12 QT 0.37 See Clinical Report link for waveform capture us Unknown Provider POINT OF CARE CARDIOLOGY Final Result Performing Organization Address [facility] de Phone Number [facility] [address] [place] [address] * LEFT HEART CATH, LEFT VENTRICULOGRAM, CORONARY ANGIOGRAM (COR/LHC/LV GRAM, CARDIAC CATHETERIZATION)(02/17/2022 3:13 PM EDT) Narrative [facility] - 02/17/2022 3:48 PM EDT 1. Minimal to mild luminal coronary artery disease without culprit stenosis. 2. Grossly normal LV with normal LVEDP at 12 mmHg. -EP consult for wide complex tachycardia -stop heparin -continue amio for now -resume eliquis tomorrow am Swetha Coronary Findings Diagnostic Dominance: Right Left Main: The vessel exhibits minimal luminal irregularities. Left Anterior Descending: There is mild diffuse disease throughout the vessel. Left Circumflex: There is mild diffuse disease throughout the vessel. Right Coronary Artery: There is mild diffuse disease throughout the vessel. Intervention No interventions have been documented. Left Heart Pressures LVDP / pre a : 5 mmHg Wall Motion All segments of the heart are normal. us Ashish Posada MD CARDIAC CATH ORDERABLES F inal Result [facility] * [employer] SUPERVISOR HEMODYNAMIC WAVEFORMS (02/17/2022 2:48 PM EDT) 02/17/2022 2:48 PM EDT us Ashish Posada MD CARDIAC CATH ORDERABLES F inal Result Performing Organization Address [facility] Co de Phone Number [facility] [address] [place] [address] * EC ECHOCARDIOGRAM COMPLETE W DOPPLER AND COLOR FLOW MAPPING (02/17/2022 12:06 PM EDT) LV DIASTOLIC PLAX 4.74 cm PYRAMIS Ejection Fraction 55% PYRAMIS MITRAL REGURGITATION trace PYRAMIS AORTIC STENOSIS no PYRAMIS Anatomical Region Laterality Modality Electrocardiogra phy 02/17/2022 11:2 0 AM EDT Impressions 02/17/2022 12:56 PM EDT Conclusions * Left ventricular chamber dimension is normal. * Left ventricular function is low normal with an estimated ejection fraction of 55%. * Left ventricular segmental wall motion is normal. * The left ventricular diastolic function is indeterminate. * Right ventricular systolic function is normal. * Estimated pulmonary artery pressure is 30 mmHg, consistent with no pulmonary hypertension. Narrative Procedure Note Velasquez Posada MD - 02/17/2022 IMPRESSION Conclusions * Left ventricular chamber dimension is normal. * Left ventricular function is low normal with an estimated ejection fraction of 55%. * Left ventricular segmental wall motion is normal. * The left ventricular diastolic function is indeterminate. * Right ventricular systolic function is normal. * Estimated pulmonary artery pressure is 30 mmHg, consistent with no pulmonary hypertension. us Alexandru Chapman MD IMG ECHO ORDERABLES Final Re sult * (ABNORMAL) LIPID PANEL REFLEX (02/17/2022 10:27 AM EDT) Cholesterol 205(H) <200 mg/dL 02/17/2022 11:35 AM EDT [facility] Comment: < 200 Desirable 200 - 239 Borderline High >= 240 High Triglyceride 146 <150 mg/dL 02/17/2022 11:[address] [facility] Comment: < 150 Normal 150 - 199 Borderline High 200 - 499 High >= 500 Very High HDL 58 >=40 mg/dL 02/17/2022 11:35 [address] [facility] Comment: > 60 Optimal 40 - 60 Acceptable < 40 Low LDL Calculated 121(H) <100 mg/dL 02/17/2022 11:[address] [facility] Non-HDL-C Calculated 147(H) <=129 mg/dL 02/17/2022 11:35 [address] [facility] Comment: <130 Desirable 130-159 Above Desirable 160-189 Borderline High 190-219 High >= 220 Very High Fasting Specimen? Unknown None 022 11:35 AM EDT [facility] Blood VENOUS BLOOD / Unknown Venipuncture / Unknown 02/17/2022 10:27 AM EDT 02/17/2022 11:01 AM EDT us Edna Florez MD CHEMISTRY ORDERABLES Final Resul t [facility] [employer] [facility] [address] [facility] , [place] [address] [facility] [address] [place], [place] [id number] * HEMOGLOBIN A1C (02/17/2022 10:27 AM EDT) Hgb A1C 5.4 4.2 - 5.6 % 02/17/2022 11:[address] [facility] Est. Avg Glucose 108 mg/dL 02/17/2022 11:[address] [facility] Blood VENOUS BLOOD / Unknown Venipuncture / Unknown 02/17/2022 10:27 AM EDT 02/17/2022 11:00 AM EDT Narrative [facility] - 02/17/2022 11:28 AM EDT REFERENCE RANGE: Normal: 4.0-5.6% Pre-diabetes: 5.7-6.4% Provisional diagnosis of diabetes: >6.4% Hgb F>10% and anything which shortens red cell survival, such as hemolytic anemia, or unstable hemoglobin variants such as HbSS, HbSC, or HbCC, will lower the HbA1c value associated with a given level of glycemic control. Edna Florez MD CHEMISTRY ORDERABLES Final Resul t Performing Organization Address [facility] de Phone Number [facility] [address] [place] [address] , [place] [address] * (ABNORMAL) HEPARIN ANTI-XA, UNF (02/17/2022 7:07 AM EDT) Only the most recent of18 resultswithin the time period is included. Heparin Level UNF 0.94(H) 0.30 - 0.70 IU/mL 02/17/2022 8:07 AM EDT [facility] Comment:The therapeutic rang e for heparinized patients monitored by the Heparin Lvl UF is 0.30-0.70 IU/mL. Blood VENOUS BLOOD / Unknown Venipuncture / Unknown 02/17/2022 7:07 AM EDT 02/17/2022 7:44 AM EDT us Rima Venegas MD HEMATOLOGY ORDERABLES Final R esult Performing Organization Address [facility] Co de Phone Number [facility] [address] [place] [address] , [place] [address] * EK EKG 12 LEAD (02/17/2022 12:05 AM EDT) Only the most recent of8 resultswithin the time period is included. Anatomical Region Laterality Modality Electrocardiogra phy 02/17/2022 5:26 AM EDT Impressions 02/17/2022 8:[address] [facility] Test Date: 2022-02-17 Pat Name: EDI GREENBERG Department: DEPID Room: 4436 Gender: Male [employer]: Ap : 1970 Requested By: KAYLIE CHAPMAN Order Number: [id number] Reading MD: Spenser Martin MD Measurements Intervals [place] Rate: 76 P: 49 IN: 152 QRS: 30 QRSD: 90 T: 84 QT: 402 QTc: 452 Interpretive Statements SINUS RHYTHM NONSPECIFIC T-WAVE ABNORMALITY Electronically Signed On 02-17-2022 8:00:27 EDT by Spenser Martin MD Narrative Procedure Note Spenser Martin MD - 02/17/[address] 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 nm-vJrfknlsa-X 2HR 103(HH) <22 ng/L 02/16/2022 11:17 PM EDT [facility] Comment:See the website britney devlin for rule out [place] care pathway, conditions other than AMI that can cause elevated hs cTnT, and comparison of values from the 4th and 5th generation Christina tests. https://[email or web address]/topic/clinical-answers/gnt-28609519/cpm-203 64069 hs-cTnT 2Hr Delta from Baseline 2 <4 ng/L 02/16/2022 11:17 PM EDT [facility] Blood VENOUS BLOOD / Unknown Venipuncture / Unknown 02/16/2022 10:50 PM EDT 02/16/2022 10:56 PM EDT Narrative [facility] - 02/16/2022 11:17 PM EDT Ingestion of jose doses of biotin (>5 mg/day) taken within 8 hours of drawing blood sample can interfere with this immunoassay test. Alexandru Chapman MD CHEMISTRY ORDERABLES Final R esult Performing Organization Address [facility] Co de Phone Number [facility] [address] [place] [address] * TSH REFLEX (02/16/2022 10:50 PM EDT) TSH Reflex 1.790 0.270 - 4.200 mcIU/mL 02/17/2022 11:10 AM EDT [facility] Blood VENOUS BLOOD / Unknown Venipuncture / Unknown 02/16/2022 10:50 PM EDT 02/16/2022 10:55 PM EDT Narrative [facility] - 02/17/2022 11:10 AM EDT Ingestion of jose doses of biotin (>5 mg/day) taken within 8 hours of drawing blood sample can interfere with this immunoassay test. Jeanette Peterson MD CHEMISTRY ORDERABLES Fin al Result Performing Organization Address [facility]/ZIP Co de Phone Number [facility] [address] [facility] [address], [place] [address] * ACUTE HEPATITIS PANEL (02/16/2022 10:50 PM EDT) Hep Bs Ag Non-Reacti ve Non-Reacti ve 02/17/2022 1:00 AM EDT [facility] Hep B Core IgM Non-Reacti ve Non-Reacti ve 02/17/2022 1:00 AM EDT [facility] Hep A IgM Non-Reacti ve Non-Reacti ve 02/17/2022 1:00 AM EDT [facility] Hep C Ab Non-Reacti ve Non-Reacti ve 02/17/2022 1:00 AM EDT [facility] [employer] Blood VENOUS BLOOD / Unknown Venipuncture / Unknown 02/16/2022 10:50 PM EDT 02/16/2022 10:55 PM EDT Alexandru Chapman MD CHEMISTRY ORDERABLES Final R esult [facility] [address] [place] [address], [address] [place] [id number] * CORONAVIRUS 2019 (02/16/2022 10:04 PM EDT) [facility] CORONAVIRUS [id number] Not Detected Not Detected 02/16/2022 10:32 PM EDT [facility] Comment: Caution should be exercised when interpreting a result of 'Not Detected'. A result of 'Not Detected' does not rule out COVID-19 and cannot be used as sole basis for treatment or patient management decisions. If COVID-19 is still suspected following a 'Not Detected' result, re-testing should be considered. This test is a real-time RT-PCR test intended for the qualitative detection of nucleic acid from the SARS-CoV-2 in upper respiratory samples collected from individuals suspected of COVID-19. Not Detected results do not preclude COVID-19 or other respiratory viruses and should not be used as the sole basis for treatment or other patient management decisions. MELCHOR Fact Sheet for Providers and Patients: MELCHOR Fact Sheet for Providers: https://www.fda.gov/media/607828/download MELCHOR Fact Sheet for Patients: https://www.fda.gov/media/798454/download Test is performed on the Jose MELCHOR platform under the FDA's Emergency Use Authorization (EUA). Performed at [address] [address] CLIA [id number] Swab BOTH ANTERIOR NARES / Unknown 02/16/2022 10:04 PM EDT 02/16/2022 10:25 PM EDT Alexandru Chapman MD MICROBIOLOGY - GENERAL ORDER TAMMI Final Result [facility] [id number] * US RIGHT UPPER QUADRANT (02/16/2022 9:26 PM EDT) Anatomical Region Laterality Modality Abdomen Ultrasound 02/16/2022 9:26 PM EDT Impressions 02/16/2022 9:33 PM EDT Fatty liver - - Narrative 02/16/2022 9:33 PM EDT US RIGHT UPPER QUADRANT, 02/16/2022 9:26 PM CLINICAL HISTORY: -Elevated transaminase. COMPARISON: None PROCEDURE COMMENTS: Ultrasound examination of the right upper quadrant performed by the technologist. Sent to PACS along with tech notes for radiologist review. FINDINGS: Gallbladder: Normal. Romero's sign: Negative. Liver: Liver is increased in echogenicity. No focal hepatic lesion. Common bile duct: Measures 3 mm. (Normal is 6mm or less. If there has been cholecystectomy, normal is 10mm or less.) Pancreas: Visualized portions are normal. Other: Right kidney is not well visualized but no findings to suggest hydronephrosis Procedure Note Estefani De Jesus MD - 02/16/2022 US RIGHT UPPER QUADRANT, 02/16/2022 9:26 PM CLINICAL HISTORY: -Elevated transaminase. COMPARISON: None PROCEDURE COMMENTS: Ultrasound examination of the right upper quadrantperformed by the technologist. Sent to PACS along with tech notes for radiologistreview. FINDINGS: Gallbladder: Normal. Romero's sign: Negative. Liver: Liver is increased in echogenicity. No focal hepatic lesion. Common bile duct: Measures 3 mm. (Normal is 6mm or less. If there hasbeen cholecystectomy, normal is 10mm or less.) Pancreas: Visualized portions are normal. Other: Right kidney is not well visualized but no findings to suggest hydronephrosis IMPRESSION: Fatty liver - - us Alexandru Chapman MD IMG US ORDERABLES Final Resu lt * (ABNORMAL) TROPONIN-T HIGH SENSITIVITY BASELINE W/ REFLEX (02/16/2022 8:58 PM EDT) Only the most recent of5 resultswithin the time period is included. tp-fXxuydgir-Z 101(HH) <22 ng/L 02/16/2022 9:22 PM EDT [facility] Comment:See the website roxanaherlinda devlin for rule out [place] care pathway, conditions other than AMI that can cause elevated hs cTnT, and comparison of values from the 4th and 5th generation Christina tests. https://[email or web address]/topic/clinical-answers/gnt-17229671/cpm-203 [address] Blood VENOUS BLOOD / Unknown Venipuncture / Unknown 02/16/2022 8:58 PM EDT 02/16/2022 9:02 PM EDT Narrative [facility] - 02/16/2022 9:22 PM EDT Ingestion of jose doses of biotin (>5 mg/day) taken within 8 hours of drawing blood sample can interfere with this immunoassay test. Alexandru Chapman MD CHEMISTRY ORDERABLES Final R esult Performing Organization Address City/[facility]/[place] [address] * MAGNESIUM LEVEL (02/16/2022 8:58 PM EDT) Only the most recent of5 resultswithin the time period is included. Pathologist [facility] Magnesium 1.9 1.6 - 2.4 mg/dL 02/16/2022 9:28 PM EDT [facility] Blood VENOUS BLOOD / Unknown Venipuncture / Unknown 02/16/2022 8:58 PM EDT 02/16/2022 9:02 PM EDT Alexandru Chapman MD CHEMISTRY ORDERABLES Final R esult Performing Organization Address City/[facility]/ZIP Co de Phone Number [facility] [address] [place] [address] * CT ANGIOGRAM PULMONARY W CONTRAST (02/16/2022 4:51 PM EDT) Only the most recent of2 resultswithin the time period is included. Anatomical Region Laterality Modality Chest Computed Tomogra phy 02/16/2022 4:51 PM EDT Impressions 02/16/2022 5:04 PM EDT 1. No acute pulmonary embolus. 2. Right-sided atelectasis associated with eventration of the right hemidiaphragm. - Note: Radiology results need to be interpreted within a comprehensive clinical context. If you have questions about the radiology report, please contact the office of the ordering clinician. Narrative 02/16/2022 5:[address] PULMONARY ANGIOGRAM, 02/16/2022 4:51 PM CLINICAL HISTORY: -elevated d-dimer. COMPARISON: July 04, 2018. TECHNIQUE: PE protocol CT angiogram of the chest using Isovue 370 IV contrast as recorded in [employer]. 2-D multiplanar reconstructions and 3-D MIP reconstructions reviewed. Dose 1 : CT DLP Total : 201.84 mGycm DLP Spiral Max : 197.65 mGycm Maximum CTDI Vol : 6.21 mGy FINDINGS: No acute pulmonary embolism. No aortic aneurysm or dissection. There is marked elevation of the right hemidiaphragm, with resultant compressive atelectasis at the right base. This is stable from the comparison study. No acute infiltrate. No pneumothorax. No pleural effusion. No suspicious pulmonary nodule or mediastinal mass lesion. Coronary artery calcification: Mild. Procedure Note Ang Villatoro MD - 02/16/2022 CT PULMONARY ANGIOGRAM, 02/16/2022 4:51 PM CLINICAL HISTORY: -elevated d-dimer. COMPARISON: July 04, 2018. TECHNIQUE: PE protocol CT angiogram of the chest using Isovue 370 IVcontrast as recorded in [employer]. 2-D multiplanar reconstructions and 3-D MIP reconstructions reviewed. Dose 1 : CT DLP Total : 201.84 mGycm DLP Spiral Max : 197.65 mGycm Maximum CTDI Vol : 6.21 mGy FINDINGS: No acute pulmonary embolism. No aortic aneurysm ordissection. There is marked elevation of the right hemidiaphragm, with resultantcompressive atelectasis at the right base. This is stable from the comparison study. No acute infiltrate. No pneumothorax. No pleural effusion. No suspicious pulmonary nodule or mediastinal mass lesion. Coronary artery calcification: Mild. IMPRESSION: 1. No acute pulmonary embolus. 2. Right-sided atelectasis associated with eventration of the right hemidiaphragm. - Note: Radiology results need to be interpreted within a comprehensiveclinical context. If you have questions about the radiology report, please contactthe office of the ordering clinician. us Adriana H Thierry [employer] SUPERVISOR IM CT ORDERABLES Final Resul t * XR CHEST AP PORTABLE (02/16/2022 2:43 PM EDT) Anatomical Region Laterality Modality Chest Radiographic Helena ging 02/16/2022 2:43 PM EDT Impressions 02/16/2022 2:47 PM EDT No acute finding. - Note: Radiology results need to be interpreted within a comprehensive clinical context. If you have questions about the radiology report, please contact the office of the ordering clinician. Narrative 02/16/2022 2:47 PM EDT XR CHEST AP PORTABLE, 02/16/2022 2:43 PM CLINICAL HISTORY: -CHEST PAIN COMPARISON: 07/01/2018 PROCEDURE COMMENTS: AP portable technique. FINDINGS: Support devices: No visible support devices. Heart and mediastinal contours within normal limits for technique. No active failure, pneumonia, or visible effusion. No visible pneumothorax. Procedure Note Estefani De Jesus MD - 02/16/2022 XR CHEST AP PORTABLE, 02/16/2022 2:43 PM CLINICAL HISTORY: -CHEST PAIN COMPARISON: 07/01/2018 PROCEDURE COMMENTS: AP portable technique. FINDINGS: Support devices: No visible support devices. Heart and mediastinal contours within normal limits for technique. Noactive failure, pneumonia, or visible effusion. No visible pneumothorax. IMPRESSION: No acute finding. - Note: Radiology results need to be interpreted within a comprehensiveclinical context. If you have questions about the radiology report, please contactthe office of the ordering clinician. us Adriana H Thierry [employer] SUPER[employer] IMG DIAGNOSTIC IMAGING ORDERA BLES Final Result * (ABNORMAL) CBC (02/16/2022 2:34 PM EDT) Only the most recent of16 resultswithin the time period is included. Pathologist [facility] WBC 11.9(H) 3.7 - 10.3 x10(3)/mcL 02/16/2022 2:42 PM EDT [facility] RBC 4.82 4.60 - 6.10 x10(6)/mcL 02/16/2022 2:42 PM EDT [facility] Hgb 16.4 13.7 - 17.5 g/dL 02/16/2022 2:42 PM EDT [facility] Hct 50.0 40.0 - 51.0 % 02/16/2022 2:42 PM EDT [facility] MCV 103.7(H) 80.0 - 100.0 fL 02/16/2022 2:42 PM EDT [facility] MCH 34.0 26.0 - 34.0 pg 02/16/2022 2:42 PM EDT [facility] MCHC 32.8 30.7 - 35.5 g/dL 02/16/2022 2:42 PM EDT [facility] RDW 13.9 <=14.9 % 02/16/2022 2:42 PM EDT [facility] Platelet 228 155 - 369 x10(3)/mcL 02/16/2022 2:42 PM EDT [facility] MPV 9.6 8.8 - 12.5 fL 02/16/2022 2:42 PM EDT [facility] Blood VENOUS BLOOD / Unknown Venipuncture / Unknown 02/16/2022 2:34 PM EDT 02/16/2022 2:39 PM EDT us Adriana Guadarrama [employer] HEMATOLOGY ORDERABLES Final R esult [facility] [address] [place] [address] * (ABNORMAL) D-DIMER (02/16/2022 2:34 PM EDT) Only the most recent of2 resultswithin the time period is included. Pathologist [facility] D-Dimer 561(H) <=500 ng/mL FEU 02/16/2022 2:58 PM EDT [facility] Comment:This is an automated latex enhanced immunoassay for the quantitative determination of D-Dimer that may be used, in conjunction with a clinical pretest probability assessment, to exclude venous thromboembolism in patients suspected of deep venous thrombosis (DVT) and pulmonary embolism (PE). The cutoff for exclusion of DVT and PE is 500 ng/mL Fibrinogen Equivalent Units (FEU). Elevated D-Dimer levels may be associated with PE, DVT, disseminated intravascular coagulation, recent surgery, recent bleeding, , malignancy, and inflammation. Blood VENOUS BLOOD / Unknown Venipuncture / Unknown 02/16/2022 2:34 PM EDT 02/16/2022 2:40 PM EDT us Adriana Guadarrama [employer] SUPER[employer] HEMATOLOGY ORDERABLES Final R esult [facility] [address] [facility], [place] [address] * (ABNORMAL) HEPATIC FUNCTION PANEL (02/16/2022 2:34 PM EDT) Only the most recent of3 resultswithin the time period is included. Total Protein 8.0 6.4 - 8.3 gm/dL 02/16/2022 2:55 PM EDT [facility] Albumin 4.4 3.5 - 5.2 gm/dL 02/16/2022 2:55 PM EDT [facility] Bili Direct 0.5(H) 0.0 - 0.3 mg/dL 02/16/2022 2:55 PM EDT [facility] Bili Total 1.4 0.1 - 1.4 mg/dL 02/16/2022 2:55 PM EDT [facility] AST 110(H) <=40 U/L 02/16/2022 2:55 PM EDT [facility] ALT 110(H) <=41 U/L 02/16/2022 2:55 PM EDT [facility] Alk Phos 125 40 - 129 U/L 02/16/2022 2:55 PM EDT [facility] Blood VENOUS BLOOD / Unknown Venipuncture / Unknown 02/16/2022 2:34 PM EDT 02/16/2022 2:39 PM EDT us Adriana Guadarrama [employer] SUPERVISOR CHEMISTRY ORDERABLES Final Re sult Performing Organization Address City/[facility] Co de Phone Number [facility] [address] [place] [address] * POCT EKG (03/20/2019 3:01 PM EDT) Only the most recent of4 resultswithin the time period is included. 03/20/2019 3:01 PM EDT Impressions SEP OFFICE - 03/20/2019 3:01 PM EDT Normal us Elías Lua MD POINT OF CARE CARDIOLOGY Final R esult Performing Organization Address [facility] Co de Phone Number SEP OFFICE * PHOSPHORUS LEVEL (07/31/2018 6:57 AM EST) Only the most recent of2 resultswithin the time period is included. Phosphorus 3.8 2.5 - 4.5 mg/dL 07/31/2018 7:51 AM EST [facility] Blood VENOUS BLOOD / Unknown Venipuncture / Unknown 07/31/2018 6:57 AM EST 07/31/2018 7:12 AM EST us Ab Woodruff MD CHEMISTRY ORDERABLES Noy l Result Performing Organization Address [facility] Co de Phone Number [facility] [address] [place] [address] * INTRAOP AIRWAY PLACEMENT (07/21/2018 11:43 AM EST) Narrative [facility] - 07/21/2018 11:43 AM EST Bozena Sahu CRNA 07/21/2018 11:44 AM Intraop Airway Placement: Date/Time: 07/21/2018 11:38 AM Induction type: IV Mask size: Standard adult Pre-Oxygenation: Standard Mask ventilation: Easy mask ventilation Technique: Video laryngoscope Laryngoscope blade: Lay Blade size: 3 Grade view: I Airway type: ETT- cuffed Topical Anesthetic/Lubricant: Lubricant jelly Intubation assist devices: Stylet 14fr Airway location: Oral Device size: 7.5mm Secured at: 21 cm Secured by: Tape Measured from: Lips Placement verified: Auscultation, End tidal CO2 and Symmetric chest wall motion Condition: Atraumatic and Unchanged Insertion attempts: 1 Attempt 1 by: ZACH Title: GLENN Procedure Note Bozena Sahu CRNA - 07/21/2018 11:43 AM EST Intraop Airway Placement: Date/Time: 07/21/2018 11:38 AM Induction type: IV Mask size: Standard adult Pre-Oxygenation: Standard Mask ventilation: Easy mask ventilation Technique: Video laryngoscope Laryngoscope blade: Lay Blade size: 3 Grade view: I Airway type: ETT- cuffed Topical Anesthetic/Lubricant: Lubricant jelly Intubation assist devices: Stylet 14fr Airway location: Oral Device size: 7.5mm Secured at: 21 cm Secured by: Tape Measured from: Lips Placement verified: Auscultation, End tidal CO2 and Symmetric chestwall motion Condition: Atraumatic and Unchanged Insertion attempts: 1 Attempt 1 by: ZACH Title: SCOOP DRIVER us Lolly Leonardo MD IN ANESTHESIA Final Res ult [facility] [address] [place] [phone] * (ABNORMAL) PT / INR (07/21/2018 5:40 AM EST) Only the most recent of5 resultswithin the time period is included. PT 15.3(H) 9.7 - 12.5 second(s) 07/21/2018 6:48 AM EST [facility] INR 1.35(H) 0.86 - 1.10 no units 07/21/2018 6:48 AM EST [facility] Comment: Level of Therapy Indications Target INR Range Standard Dose Treatment and prophylaxis of venous 2.0 - 3.0 thrombosis, pulmonary embolism High Dose High risk patients with mechanical 2.5 - 3.5 heart valves Blood VENOUS BLOOD / Unknown Venipuncture / Unknown 07/21/2018 5:40 AM EST 07/21/2018 6:21 AM EST Ab Woodruff MD HEMATOLOGY ORDERABLES Fin al Result Performing Organization Address [facility] Phone Number [address] [address] * EXTRA GOLD SST (07/20/2018 7:28 PM EST) Blood VENOUS BLOOD / Unknown Venipuncture / Unknown 07/20/2018 7:28 PM EST 07/20/2018 7:32 PM EST Ab Woodruff MD CHEMISTRY ORDERABLES Noy l Result Performing Organization Address [facility] [place] [address] * EXTRA MINT GREEN LI (07/20/2018 7:28 PM EST) Only the most recent of2 resultswithin the time period is included. Blood VENOUS BLOOD / Unknown Venipuncture / Unknown 07/20/2018 7:28 PM EST 07/20/2018 7:32 PM EST Ab Woodruff MD CHEMISTRY ORDERABLES Noy l Result Performing Organization Address [facility] Phone Number [address] [address] * XR FOOT RIGHT AP LATERAL AND OBLIQUE (07/17/2018 4:02 PM EST) Anatomical Region Laterality Modality Foot Radiographic [place] ging 07/17/2018 4:02 PM EST Impressions 07/17/2018 4:24 PM EST No acute bony abnormality of the foot. Narrative 07/17/2018 4:24 PM EST XR FOOT RIGHT AP LATERAL AND OBLIQUE, 07/17/2018 4:02 PM CLINICAL HISTORY: -painful to touch/swelling COMPARISON: None. PROCEDURE COMMENTS: Routine views of the foot and toes per protocol. FINDINGS: There is no fracture or traumatic malalignment. Joint spaces are maintained. There are no erosive or periosteal changes. Procedure Note Alfred Echols MD - 07/17/2018 XR FOOT RIGHT AP LATERAL AND OBLIQUE, 07/17/2018 4:02 PM CLINICAL HISTORY: -painful to touch/swelling COMPARISON: None. PROCEDURE COMMENTS: Routine views of the foot and toes per protocol. FINDINGS: There is no fracture or traumatic malalignment. Joint spaces are maintained. There are no erosive or periosteal changes. IMPRESSION: No acute bony abnormality of the foot. Ab Woodruff MD [facility] [place] [place] DI[facility]NOSTIC IMAGING OR DERABLES Final Result * XR ANKLE RIGHT AP LATERAL AND OBLIQUE (07/17/2018 4:02 PM EST) Anatomical Region Laterality Modality Ankle Radiographic [place] ging 07/17/2018 4:02 PM EST Impressions 07/17/2018 4:06 PM EST No acute osseous abnormality of the ankle. Narrative 07/17/2018 4:06 PM EST XR ANKLE RIGHT AP LATERAL AND OBLIQUE, 07/17/2018 4:02 PM CLINICAL HISTORY: -painful to touch/swelling COMPARISON: None. PROCEDURE COMMENTS: Routine views per protocol. FINDINGS: The ankle mortise is congruent and there is no fracture. There is no joint effusion. Joint spaces are maintained. Procedure Note Eljiah Diop MD - 07/17/2018 XR ANKLE RIGHT AP LATERAL AND OBLIQUE, 07/17/2018 4:02 PM CLINICAL HISTORY: -painful to touch/swelling COMPARISON: None. PROCEDURE COMMENTS: Routine views per protocol. FINDINGS: The ankle mortise is congruent and there is no fracture. There is nojoint effusion. Joint spaces are maintained. IMPRESSION: No acute osseous abnormality of the ankle. Ab Woodruff MD [facility] [place] [place] DIAGNOSTIC IMAGING OR DERABLES Final Result * THYROID STIMULATING HORMONE (07/17/2018 7:06 AM EST) Only the most recent of2 resultswithin the time period is included. TSH 2.590 0.270 - 4.200 mcIU/mL 07/17/2018 8:54 AM EST [facility] [employer] Blood VENOUS BLOOD / Unknown Venipuncture / Unknown 07/17/2018 7:06 AM EST 07/17/2018 7:13 AM EST Narrative [facility] - 07/17/2018 8:54 AM EST Ingestion of jose doses of biotin (>5 mg/day) taken within 8 hours of drawing blood sample can interfere with this immunoassay test. Ab Woodruff MD CHEMISTRY ORDERABLES Noy l Result Performing Organization Address [facility] de Phone Number [facility] [employer] [address] , [place] [id number] * T4, FREE (THYROXINE) (07/17/2018 7:06 AM EST) Pathologist [facility] Free T4 1.55 0.80 - 2.00 ng/dL 07/17/2018 8:54 AM EST [facility] Blood VENOUS BLOOD / Unknown Venipuncture / Unknown 07/17/2018 7:06 AM EST 07/17/2018 7:13 AM EST Narrative [facility] - 07/17/2018 8:54 AM EST Ingestion of jose doses of biotin (>5 mg/day) taken within 8 hours of drawing blood sample can interfere with this immunoassay test. Ab Woodruff MD CHEMISTRY ORDERABLES Noy l Result Performing Organization Address [facility] Phone Number [facility] [employer] , [place] [address] * SCANNED RHYTHM STRIPS (07/16/2018 2:06 PM EST) Anatomical Region Laterality Modality Other 07/16/2018 2:06 PM EST us Unknown Unknown IMG ECG ORDERABLES Final Result * (ABNORMAL) WOUND CULTURE (STAIN INCLUDED) (07/15/2018 11:55 PM EDT) [facility] Culture Positive Growth(A) 07/18/2018 2:40 PM EST [facility] Culture Abundant growth of Enterobacter aerogenes SUSCEPTIBI LITY RESULT 07/18/2018 2:40 PM EST [facility] Comment:Possible ESBL. Stain Moderate Gram positive cocci 07/18/2018 2:40 PM EST [facility] Stain Moderate Gram negative rods 07/18/2018 2:40 PM EST [facility] [employer] Stain Moderate WBCs 07/18/2018 2:40 PM EST [facility] Swab SKIN STRUCTURE OF INGUINAL REGION / Unknown 07/15/2018 11:55 PM EDT 07/15/2018 11:56 PM EDT Narrative Organism Antibiotic Method Susceptibility Klebsiella (Enterobacter) aerogenes Amikacin SUSCEPTIBILITY RESULT <=16 ug/mL: Susceptible Klebsiella (Enterobacter) aerogenes Amoxicillin/Clavulanat e SUSCEPTIBILITY RESULT Klebsiella (Enterobacter) aerogenes Ampicillin SUSCEPTIBILITY RESULT Klebsiella (Enterobacter) aerogenes Ampicillin/Sulbactam SUSCEPTIBILITY RESULT Klebsiella (Enterobacter) aerogenes Aztreonam SUSCEPTIBILITY RESULT <=4 ug/mL: Resistant Klebsiella (Enterobacter) aerogenes Cefazolin SUSCEPTIBILITY RESULT Klebsiella (Enterobacter) aerogenes Cefepime SUSCEPTIBILITY RESULT Klebsiella (Enterobacter) aerogenes Cefotaxime SUSCEPTIBILITY RESULT 8 ug/mL: Resistant Klebsiella (Enterobacter) aerogenes Cefoxitin SUSCEPTIBILITY RESULT Klebsiella (Enterobacter) aerogenes Ceftazidime SUSCEPTIBILITY RESULT 16 ug/mL: Resistant Klebsiella (Enterobacter) aerogenes Ceftriaxone SUSCEPTIBILITY RESULT 8 ug/mL: Resistant Klebsiella (Enterobacter) aerogenes Cefuroxime SUSCEPTIBILITY RESULT Klebsiella (Enterobacter) aerogenes Ciprofloxacin SUSCEPTIBILITY RESULT <=1 ug/mL: Susceptible Klebsiella (Enterobacter) aerogenes Ertapenem SUSCEPTIBILITY RESULT <=0.5 ug/mL: Susceptible Klebsiella (Enterobacter) aerogenes Gentamicin SUSCEPTIBILITY RESULT <=1 ug/mL: Susceptible Klebsiella (Enterobacter) aerogenes Imipenem SUSCEPTIBILITY RESULT 1 ug/mL: Susceptible Klebsiella (Enterobacter) aerogenes Levofloxacin SUSCEPTIBILITY RESULT <=0.25 ug/mL: Susceptible Klebsiella (Enterobacter) aerogenes Meropenem SUSCEPTIBILITY RESULT <=1 ug/mL: Susceptible Klebsiella (Enterobacter) aerogenes Nitrofurantoin SUSCEPTIBILITY RESULT Klebsiella (Enterobacter) aerogenes Piperacillin/Tazobacta m SUSCEPTIBILITY RESULT 16 ug/mL: Susceptible Klebsiella (Enterobacter) aerogenes Tetracycline SUSCEPTIBILITY RESULT <=4 ug/mL: Susceptible Klebsiella (Enterobacter) aerogenes Tigecycline SUSCEPTIBILITY RESULT <=2 ug/mL: Susceptible Klebsiella (Enterobacter) aerogenes Tobramycin SUSCEPTIBILITY RESULT <=1 ug/mL: Susceptible Klebsiella (Enterobacter) aerogenes Trimethoprim/Sulfameth oxazole SUSCEPTIBILITY RESULT <=2/38 ug/mL: Susceptible us Ab Woodruff MD MICROBIOLOGY - GENERAL OR DERABLES Final Result [facility] [address] [facility], [place] [address] * (ABNORMAL) COMPREHENSIVE METABOLIC PANEL (07/15/2018 4:12 AM EDT) Sodium 136 136 - 145 mmol/L 07/15/2018 5:05 AM EDT [facility] Potassium 4.7 3.5 - 5.0 mmol/L 07/15/2018 5:05 AM EDT [facility] Chloride 102 98 - 107 mmol/L 07/15/2018 5:05 AM EDT [facility] Total CO2 24 22 - 29 mmol/L 07/15/2018 5:05 AM EDT [facility] Anion Gap 10 7 - 16 mmol/L 07/15/2018 5:05 AM EDT [facility] Calcium 9.1 8.6 - 10.2 mg/dL 07/15/2018 5:05 AM EDT [facility] Glucose Lvl 114(H) 74 - 100 mg/dL 07/15/2018 5:05 AM EDT [facility] BUN 17 6 - 20 mg/dL 07/15/2018 5:05 AM EDT [facility] Creatinine 1.15 0.67 - 1.30 mg/dL 07/15/2018 5:05 AM EDT [facility] Albumin 3.0(L) 3.5 - 5.2 gm/dL 07/15/2018 5:05 AM EDT [facility] Total Protein 7.2 6.4 - 8.3 gm/dL 07/15/2018 5:05 AM EDT [facility] Bili Total 0.4 0.1 - 1.4 mg/dL 07/15/2018 5:05 AM EDT [facility] ALT 36 <=41 IU/L 07/15/2018 5:05 AM EDT [facility] AST 28 <=40 IU/L 07/15/2018 5:05 AM EDT [facility] Alk Phos 70 40 - 129 IU/L 07/15/2018 5:05 AM EDT [facility] GFR Afr Am 88 >=60 mL/min/1.7 3 m2 07/15/2018 5:05 AM EDT [facility] GFR Non Afr Am 76 >=60 mL/min/1.7 3 m2 07/15/2018 5:05 AM EDT [facility] Comment: This estimated GFR was calculated using CKD-EPI equation which is modified based on ethnicity for Non Americans and Americans. Both results are reported since it is not always possible to determine the patient's ethnicity. This equation should only be used for individuals 18 and older. It has not been validated for use with the elderly (>70 years), women, or in some racial or ethnic subgroups, such as Hispanics. The equation will be less accurate in people with differences in nutritional status or muscle mass. Blood VENOUS BLOOD / Unknown Venipuncture / Unknown 07/15/2018 4:12 AM EDT 07/15/2018 4:43 AM EDT Ab Woodruff MD CHEMISTRY ORDERABLES Noy l Result [facility] [address] [place] [address] * (ABNORMAL) LIPID SCREEN (07/06/2018 5:27 AM EDT) Cholesterol 187 <=200 mg/dL 07/06/2018 6:21 AM EDT [facility] Comment: < 200 Desirable 200 - 239 Borderline High >= 240 High Triglyceride 163(H) <=150 mg/dL 07/06/2018 6:21 AM EDT [facility] Comment: < 150 Normal 150 - 199 Borderline High 200 - 499 High >= 500 Very High HDL 52 >=40 mg/dL 07/06/2018 6:21 AM EDT [facility] Comment: > 60 Optimal 40 - 60 Acceptable < 40 Low LDL Calculated 102(H) <=100 mg/dL 07/06/2018 6:21 AM EDT [facility] Comment: < 100 Optimal 100 - 129 Near or above optimal 130 - 159 Borderline High 160 - 189 High >= 190 Very High Non-HDL-C Calculated 135(H) <=129 mg/dL 07/06/2018 6:21 AM EDT [facility] Comment: <130 Desirable 130-159 Above Desirable 160-189 Borderline High 190-219 High >= 220 Very High Blood VENOUS BLOOD / Unknown Venipuncture / Unknown 07/06/2018 5:27 AM EDT 07/06/2018 5:47 AM EDT Mohan Tobin MD CHEMISTRY ORDERABLES Final Re sult [facility] [address] [facility], [place] [address] * EC ECHOCARDIOGRAM COMPLETE WITH BUBBLE STUDY (07/04/2018 2:35 PM EDT) Ejection Fraction 70-75 % PYRAMIS Anatomical Region Laterality Modality Electrocardiogra phy 07/04/2018 1:40 PM EDT Impressions 07/04/2018 4:26 PM EDT CONCLUSIONS Technically difficult. Normal global left ventricular size , hyperdynamic systolic function with no obvious regional wall motion abnormalities. Mildly thickened septal wall. Normal right ventricular size and function. No significant valvular disease. A agitated saline bubble study was performed today and showed no obvious evidence of interatrial shunting. Narrative Procedure Note Darwin Han MD - 07/04/2018 IMPRESSION CONCLUSIONS Technically difficult. Normal global left ventricular size , hyperdynamic systolic functionwith no obvious regional wall motion abnormalities. Mildly thickened septal wall. Normal right ventricular size and function. No significant valvular disease. A agitated saline bubble study was performed today and showed no obviousevidence of interatrial shunting. Benny Casper DO IMG ECHO ORDERABLES Fin al Result * SCANNED EKG (07/03/2018 3:43 PM EDT) Anatomical Region Laterality Modality Other 07/03/2018 3:43 PM EDT us Unknown Unknown IMG ECG ORDERABLES Final Result * IR ANGIOGRAM EXTREMITY RIGHT (07/02/2018 1:06 PM EDT) Only the most recent of2 resultswithin the time period is included. Anatomical Region Laterality Modality Interventional R adiology Narrative 07/07/2018 10:13 PM EDT RADIOLOGY/VASCULAR REPORT DATE OF PROCEDURE: 07/02/2018 PREOPERATIVE DIAGNOSIS: Right lower extremity ischemia. POSTOPERATIVE DIAGNOSIS: Right lower extremity ischemia. PROCEDURES: Right lower extremity angiogram. SURGEON: Benny Casper DO. ANESTHESIA: Versed and fentanyl with 1% lidocaine plain. ESTIMATED BLOOD LOSS: 5 mL. INDICATIONS: This is a very pleasant, 47-year-old male suffering from right lower extremity ischemia. He underwent Cragg-Ethel catheter placement for initiation of thrombolytic therapy yesterday. He was brought back to the angiography suite today for tPA followup. DETAILS OF PROCEDURE: After proper consent was obtained, the patient was identified in preop hold and taken back to the angiography suite, where the patient was sedated with Versed and fentanyl. The patient's right lower extremity was warm but he was extremely tender to palpation along the lateral aspect of his right lower extremity along his anterior and lateral compartments, which were concerning for compartment syndrome. Since he was already down in the angio suite, I performed an angiogram of the right lower extremity through the Cragg-Ethel catheter. At this point, the decision was made to take him to the OR for open thrombectomy and fasciotomies. ANGIOGRAPHIC FINDINGS: The right lower extremity revealed patent common femoral and superficial femoral arteries. The profunda was still occluded at its origin. The popliteal artery had fresh thrombus still lodged in it and the tibial vessels were not well visualized. No evidence of any contrast extravasation was seen or obvious etiology for his compartment syndrome other than successful revascularization of the anterior tibial artery, which had an early takeoff above the knee. The reperfusion edema is likely what caused the compartment syndrome. I had a long discussion with the patient and his about the operative plan and they agreed to proceed. TID # [id number] Benny Casper DO IMG IR ORDERABLES Final Result * INTRAOP AIRWAY PLACEMENT (07/02/2018 10:38 AM EDT) Narrative [facility] - 07/02/2018 10:38 AM EDT LingStanley jamisonGLENN 07/02/2018 10:45 AM Intraop Airway Placement: Date/Time: 07/02/2018 10:23 AM Induction type: IV Mask size: Standard adult Mask ventilation: Easy mask ventilation Mask ventilation improved by: Ronda Technique: Video laryngoscope Laryngoscope blade: Lay Blade size: 3 Grade view: I Airway type: ETT- cuffed Topical Anesthetic/Lubricant: LTA 4% Lidocaine Intubation assist devices: Stylet 14fr Airway location: Oral Secured at: 21 cm Secured by: Tape Measured from: Lips Placement verified: Auscultation, End tidal CO2 and Symmetric chest wall motion Condition: Atraumatic and Unchanged Insertion attempts: 1 Attempt 1 by: VIOLETTE Title: GLENN Procedure Note Stanley KimGLENN - 07/02/2018 10:38 AM EDT Intraop Airway Placement: Date/Time: 07/02/2018 10:23 AM Induction type: IV Mask size: Standard adult Mask ventilation: Easy mask ventilation Mask ventilation improved by: Ronda Technique: Video laryngoscope Laryngoscope blade: Lay Blade size: 3 Grade view: I Airway type: ETT- cuffed Topical Anesthetic/Lubricant: LTA 4% Lidocaine Intubation assist devices: Stylet 14fr Airway location: Oral Secured at: 21 cm Secured by: Tape Measured from: Lips Placement verified: Auscultation, End tidal CO2 and Symmetric chestwall motion Condition: Atraumatic and Unchanged Insertion attempts: 1 Attempt 1 by: VIOLETTE Title: SCOOP DRIVER us Cr Vargas MD IN ANESTHESIA Edited [facility] [address] [place] [phone] * IR TRANS ART OR VENOUS FOR THROMB SUBSQ DAY FU CATH CONT INJECT AND CLOSURE (07/02/2018 9:18 AM EDT) Anatomical Region Laterality Modality Interventional R adiology Narrative 07/07/2018 10:13 PM EDT RADIOLOGY/VASCULAR REPORT DATE OF PROCEDURE: 07/02/2018 PREOPERATIVE DIAGNOSIS: Right lower extremity ischemia. POSTOPERATIVE DIAGNOSIS: Right lower extremity ischemia. PROCEDURES: Right lower extremity angiogram. SURGEON: Benny Casper DO. ANESTHESIA: Versed and fentanyl with 1% lidocaine plain. ESTIMATED BLOOD LOSS: 5 mL. INDICATIONS: This is a very pleasant, 47-year-old male suffering from right lower extremity ischemia. He underwent Cragg-Ethel catheter placement for initiation of thrombolytic therapy yesterday. He was brought back to the angiography suite today for tPA followup. DETAILS OF PROCEDURE: After proper consent was obtained, the patient was identified in preop hold and taken back to the angiography suite, where the patient was sedated with Versed and fentanyl. The patient's right lower extremity was warm but he was extremely tender to palpation along the lateral aspect of his right lower extremity along his anterior and lateral compartments, which were concerning for compartment syndrome. Since he was already down in the angio suite, I performed an angiogram of the right lower extremity through the Cragg-Ethel catheter. At this point, the decision was made to take him to the OR for open thrombectomy and fasciotomies. ANGIOGRAPHIC FINDINGS: The right lower extremity revealed patent common femoral and superficial femoral arteries. The profunda was still occluded at its origin. The popliteal artery had fresh thrombus still lodged in it and the tibial vessels were not well visualized. No evidence of any contrast extravasation was seen or obvious etiology for his compartment syndrome other than successful revascularization of the anterior tibial artery, which had an early takeoff above the knee. The reperfusion edema is likely what caused the compartment syndrome. I had a long discussion with the patient and his about the operative plan and they agreed to proceed. TID # [id number] Benny Casper DO IMG IR ORDERABLES Final Result * FIBRINOGEN (07/02/2018 5:00 AM EDT) Only the most recent of2 resultswithin the time period is included. Fibrinogen 238 196 - 447 mg/dL 07/02/2018 6:11 AM EDT [facility] [employer], [employer] Blood Venipuncture / Unknown 07/02/2018 5:00 AM EDT 07/02/2018 5:33 AM EDT Benny Casper DO HEMATOLOGY ORDERABLES F inal Result [facility] [employer], [address] , [place] [address] * IR TRANSCATH ARTERIAL INFUSION THROMBOLYSIS INITIAL TREAT (07/01/2018 11:09 AM EDT) Anatomical Region Laterality Modality Interventional R adiology Narrative 07/07/2018 10:13 PM EDT RADIOLOGY/VASCULAR REPORT DATE OF PROCEDURE: 07/01/2018 PREOPERATIVE DIAGNOSIS: Right lower extremity ischemia. POSTOPERATIVE DIAGNOSIS: Right lower extremity ischemia. PROCEDURES: 1. Left common femoral artery access under ultrasound guidance. 2. Aortogram with pelvic angiography. 3. Right lower extremity angiogram. 4. Placement of a 65 cm Cragg-Ethel catheter with a 10 cm infusion length across the superficial femoral artery occlusion and initiation of thrombolytic therapy. 5. 30 minutes of monitored conscious sedation. SURGEON: Benny Casper DO. ANESTHESIA: Versed and fentanyl with 1% lidocaine plain. ESTIMATED BLOOD LOSS: 5 mL. COMPLICATIONS: None. INDICATIONS: This is a very pleasant, 47-year-old male suffering from sudden onset right lower extremity ischemia. Risks, benefits and alternatives were discussed with the patient and he wished to proceed with an angiogram with intervention. DETAILS OF PROCEDURE: After proper consent was obtained, the patient was identified in preop hold and taken back to the operating suite. The patient was sedated with Versed and fentanyl. The patient's bilateral groins were prepped and draped in the usual sterile fashion. Attention was turned to the patient's left groin, where the area overlying the femoral head was anesthetized with 1% lidocaine plain. Next, under ultrasound guidance, the left common femoral artery was accessed with a Adonay needle. A wire was inserted up into the aorta. An 11 blade scalpel was used to make a skin incision over the needle. The needle was removed and a 5-Iranian sheath was placed over the wire, flushed, and secured in place. Next, an Omni catheter was placed up into the aorta and then an aortogram with pelvic angiography was performed. The catheter was pulled down, and then a right lower extremity angiogram was performed. Based on the results of the study, we decided to proceed with intervention. The right common iliac artery was cannulated with an Omni catheter and a Bentson wire. The wire was advanced down into the superficial femoral artery through the occlusion without any resistance. The Omni catheter and 5-Iranian sheath were removed, and a 6-Iranian Terumo Destination sheath was advanced up and over the aortic bifurcation, flushed, and secured in place. The patient was systemically heparinized. Next, a 65 cm Cragg-Ethel catheter with a 10 cm infusion length was placed across the occluded SFA. The patient will be initiated on tPA therapy at 2 mg an hour for 4 hours and then 1 mg an hour overnight. The Cragg-Ethel catheter and the 6-Iranian sheath were secured in place. The patient was systemically heparinized with 900 units of heparin per hour. The patient was taken to the ICU for further tPA infusion. ANGIOGRAPHIC FINDINGS: 1. The patient's aortogram revealed a patent infrarenal aorta with patent renal arteries bilaterally. 2. The bilateral common iliac, external iliac, and hypogastric arteries were all widely patent. 3. The right common femoral artery was patent proximally to the femoral head and the profunda was not visualized. 4. The SFA appeared to have a large chunk of fresh thrombus at the origin and then the mid and distal SFA were patent. 5. The popliteal artery occluded and the tibial vessels were not well visualized. 6. The patient will be brought back tomorrow for further angiogram. TID # [id number] Benny Casper DO IMG IR ORDERABLES Final Result * IR ULTRASOUND GUIDED VASCULAR ACCESS (07/01/2018 11:09 AM EDT) Anatomical Region Laterality Modality Interventional R adiology Narrative 07/07/2018 10:13 PM EDT RADIOLOGY/VASCULAR REPORT DATE OF PROCEDURE: 07/01/2018 PREOPERATIVE DIAGNOSIS: Right lower extremity ischemia. POSTOPERATIVE DIAGNOSIS: Right lower extremity ischemia. PROCEDURES: 1. Left common femoral artery access under ultrasound guidance. 2. Aortogram with pelvic angiography. 3. Right lower extremity angiogram. 4. Placement of a 65 cm Cragg-Ethel catheter with a 10 cm infusion length across the superficial femoral artery occlusion and initiation of thrombolytic therapy. 5. 30 minutes of monitored conscious sedation. SURGEON: Benny Casper DO. ANESTHESIA: Versed and fentanyl with 1% lidocaine plain. ESTIMATED BLOOD LOSS: 5 mL. COMPLICATIONS: None. INDICATIONS: This is a very pleasant, 47-year-old male suffering from sudden onset right lower extremity ischemia. Risks, benefits and alternatives were discussed with the patient and he wished to proceed with an angiogram with intervention. DETAILS OF PROCEDURE: After proper consent was obtained, the patient was identified in preop hold and taken back to the operating suite. The patient was sedated with Versed and fentanyl. The patient's bilateral groins were prepped and draped in the usual sterile fashion. Attention was turned to the patient's left groin, where the area overlying the femoral head was anesthetized with 1% lidocaine plain. Next, under ultrasound guidance, the left common femoral artery was accessed with a Adonay needle. A wire was inserted up into the aorta. An 11 blade scalpel was used to make a skin incision over the needle. The needle was removed and a 5-Iranian sheath was placed over the wire, flushed, and secured in place. Next, an Omni catheter was placed up into the aorta and then an aortogram with pelvic angiography was performed. The catheter was pulled down, and then a right lower extremity angiogram was performed. Based on the results of the study, we decided to proceed with intervention. The right common iliac artery was cannulated with an Omni catheter and a Bentson wire. The wire was advanced down into the superficial femoral artery through the occlusion without any resistance. The Omni catheter and 5-Iranian sheath were removed, and a 6-Iranian Terumo Destination sheath was advanced up and over the aortic bifurcation, flushed, and secured in place. The patient was systemically heparinized. Next, a 65 cm Cragg-Ethel catheter with a 10 cm infusion length was placed across the occluded SFA. The patient will be initiated on tPA therapy at 2 mg an hour for 4 hours and then 1 mg an hour overnight. The Cragg-Ethel catheter and the 6-Iranian sheath were secured in place. The patient was systemically heparinized with 900 units of heparin per hour. The patient was taken to the ICU for further tPA infusion. ANGIOGRAPHIC FINDINGS: 1. The patient's aortogram revealed a patent infrarenal aorta with patent renal arteries bilaterally. 2. The bilateral common iliac, external iliac, and hypogastric arteries were all widely patent. 3. The right common femoral artery was patent proximally to the femoral head and the profunda was not visualized. 4. The SFA appeared to have a large chunk of fresh thrombus at the origin and then the mid and distal SFA were patent. 5. The popliteal artery occluded and the tibial vessels were not well visualized. 6. The patient will be brought back tomorrow for further angiogram. TID # [id number] Edsubhash Casper DO IMG IR ORDERABLES Final Result * EXTRA OLSON URINE CX (07/01/2018 2:34 AM EDT) Urine STRUCTURE OF URINARY TRACT PROPER / Unknown 07/01/2018 2:34 AM EDT 07/01/2018 2:43 AM EDT Tarik Sheth MD MICROBIOLOGY - GENERAL ORDERABLE S Final Result Performing Organization Address [facility] de Phone Number [facility] [address] [place] [address] * EXTRA RED/YELLOW UA (07/01/2018 2:34 AM EDT) Urine STRUCTURE OF URINARY TRACT PROPER / Unknown 07/01/2018 2:34 AM EDT 07/01/2018 2:44 AM EDT Tarik Sheth MD URINE ORDERABLES Final Result Performing Organization Address [facility] de Phone Number [facility] [address] [place] [address] * (ABNORMAL) DRUGS OF ABUSE, SCREEN ONLY, URINE (07/01/2018 2:34 AM EDT) 6 AM (Heroin) Absent Absent 07/01/2018 3:01 AM EDT [facility] Amphetamines Absent Absent 07/01/2018 3:01 AM EDT [facility] Barbiturates Absent Absent 07/01/2018 3:01 AM EDT [facility] Benzodiazepines Absent Absent 8 3:01 AM EDT [facility] Buprenorphine Absent Absent 07/01/2018 3:01 AM EDT [facility] Cannabinoid Metabolite Presumptive Pos(A) Absent 07/01/2018 3:01 AM EDT [facility] Cocaine Metabolite Absent Absent 2017 3:01 AM EDT [facility] Methadone and Metabolite Absent Absent 07/01/2018 3:01 AM EDT [facility] Opiate Presumptive Pos(A) Absent 07/01/2018 3:01 AM EDT [facility] Oxycodone Lvl Absent Absent 07/01/2018 3:01 AM EDT [facility] Phencyclidine Absent Absent 07/01/2018 3:01 AM EDT [facility] Creatinine Ur >25.0 mg/dL 07/01/2018 3:01 AM EDT [facility] Comment: Greater than 20: Consistent with valid sample Greater than 2 but less than 20: Possible dilution Less than 2: Questionable valid sample Urine STRUCTURE OF URINARY TRACT PROPER / Unknown 07/01/2018 2:34 AM EDT 07/01/2018 2:42 AM EDT Narrative [facility] - 07/01/2018 3:01 AM EDT These drug classes have been qualitatively screened by immunoassay and are for medical purposes only. Results reported as presumptive positive have not been confirmed. If results don t reflect the clinical picture, the prescribed medication, or the discussion with the patient, confirmation testing is recommended on the ORIGINAL urine. All urine specimens for drug testing are held for 7 days. If confirmation testing is desired, call the [facility]. Due to possible factors, such as, dilute/adulterated urine, concentration of drug/metabolite being below the cut-off, or antibody specificity of test reagent, a negative result does not rule out drug use. These results are only valid for urine specimens. Any contamination with vaginal pool/amniotic fluid could cause erroneous results. us Tarik Sheth MD URINE ORDERABLES Final Result [facility] [address] [place] [address] * BB HISTORY CHECK (07/01/2018 2:33 AM EDT) BB HISTORY CHECK (1) No Previous History 07/01/2018 3:17 AM EDT [facility] Blood VENOUS BLOOD / Unknown Venipuncture / Unknown 07/01/2018 2:33 AM EDT 07/01/2018 2:42 AM EDT Tarik Sheth MD BLOOD BANK ORDERABLES Final Resu lt Performing Organization Address [facility] Co de Phone Number [facility] [address] [place] [address] * ABORH (07/01/2018 2:33 AM EDT) ABORH Int A POS 07/01/2018 3:1 6 AM EDT [facility] Blood VENOUS BLOOD / Unknown Venipuncture / Unknown 07/01/2018 2:33 AM EDT 07/01/2018 2:42 AM EDT Tarik Sheth MD BLOOD BANK ORDERABLES Final Resu lt Performing Organization Address [facility] de Phone Number [facility] [address] [place] [address] * ANTIBODY SCREEN IGG (07/01/2018 2:33 AM EDT) ABSC IgG Int Negative 07/01/2018 3:16 AM EDT [facility] Blood VENOUS BLOOD / Unknown Venipuncture / Unknown 07/01/2018 2:33 AM EDT 07/01/2018 2:42 AM EDT Tarik Sehth MD BLOOD BANK ORDERABLES Final Resu lt Performing Organization Address [facility] de Phone Number [facility] [address] [place] [address] * CT ANGIOGRAM ABDOMINAL AORTA AND BILATERAL ILIOFEMORAL RUNOFF W CONTRAST (07/01/2018 2:28 AM EDT) Anatomical Region Laterality Modality Abdomen, Pelvis Computed Tomogra phy 07/01/2018 2:28 AM EDT Impressions 07/01/2018 3:02 AM EDT Focal areas of clot identified in the distal right common femoral artery, distal right popliteal artery with occlusion of most of anterior tibial artery. Flow is identified in the dorsalis pedis and posterior tibial artery branches. Narrative 07/01/2018 3:[address] ANGIOGRAM ABDOMINAL AORTA AND BILATERAL ILIOFEMORAL RUNOFF W CONTRAST 07/01/2018 2:28 AM CLINICAL HISTORY: -No pulse R foot, pain/paresthsias COMPARISON: None. PROCEDURE COMMENTS: Multidetector CT angiography of the region of interest. 125 ml IsoVue-370 given. Interactive 3-D postprocessing done by the reviewing physician on a [employer] workstation, with one or more of the following: Maximum intensity projections (MIPS), Shaded surface rendering, and/or Volume rendering. Lilly images archived to PACS. Automated exposure control for dose reduction was used. CTDIvol: 1.2 - 5.7 mGy. DLP: 726 mGy-cm. FINDINGS: Lower abdominal aorta, both common iliac, bilateral internal and external iliac arteries are widely patent. There is a small clot in the distal right common femoral artery at the bifurcation. The SFA and profunda branches appear to be patent. A second clot is seen in the distal right popliteal artery causing focal area of occlusion. Distal to this there is flow identified in the peroneal and posterior tibial arteries with occlusion of most of the anterior tibial artery. Flow appears to be seen in the distal anterior tibial artery and dorsalis pedis artery. Posterior tibial artery appears patent. Flow to the left lower extremity and foot normal. Procedure Note Alan Mistry MD - 07/01/2018 CT ANGIOGRAM ABDOMINAL AORTA AND BILATERAL ILIOFEMORAL RUNOFF W CONTRAST 07/01/2018 2:28 AM CLINICAL HISTORY: -No pulse R foot, pain/paresthsias COMPARISON: None. PROCEDURE COMMENTS: Multidetector CT angiography of the region ofinterest. 125 ml IsoVue-370 given. Interactive 3-D postprocessing done by thereviewing physician on a [employer] workstation, with one or more of the following:Maximum intensity projections (MIPS), Shaded surface rendering, and/or Volumerendering. Lilly images archived to PACS. Automated exposure control for dosereduction was used. CTDIvol: 1.2 - 5.7 mGy. DLP: 726 mGy-cm. FINDINGS: Lower abdominal aorta, both common iliac, bilateral internal and externaliliac arteries are widely patent. There is a small clot in the distal rightcommon femoral artery at the bifurcation. The SFA and profunda branches appear vinay patent. A second clot is seen in the distal right popliteal artery causingfocal area of occlusion. Distal to this there is flow identified in the [place] posterior tibial arteries with occlusion of most of the anterior tibialartery. Flow appears to be seen in the distal anterior tibial artery and dorsalispedis artery. Posterior tibial artery appears patent. Flow to the left lower extremity and foot normal. IMPRESSION: Focal areas of clot identified in the distal right common femoral artery, distal right popliteal artery with occlusion of most of anteriortibial artery. Flow is identified in the dorsalis pedis and posterior tibialartery branches. us Tarik Sheth MD IMG CT ORDERABLES Final Result * (ABNORMAL) DIFFERENTIAL (07/01/2018 1:24 AM EDT) Only the most recent of5 resultswithin the time period is included. Segs Percent 41 % 07/01/2018 2:04 AM EDT [facility] Lymph Percent 39 % 07/01/2018 2:04 AM EDT [facility] [place] Percent 12 % 07/01/2018 2:04 AM EDT [facility] Eos Percent 4 % 07/01/2018 2:04 AM EDT [facility] Baso Percent 2 % 07/01/2018 2:04 AM EDT [facility] Bands Percent 2 <=10 % 07/01/2018 2:04 AM EDT [facility] Neut # 5.5 1.8 - 7.7 x10(3)/mc L 07/01/2018 2:04 AM EDT [facility] Lymph # 5.0(H) 0.6 - 4.8 x10(3)/mc L 07/01/2018 2:04 AM EDT [facility] [place] # 1.5(H) 0.0 - 1.3 x10(3)/mc L 07/01/2018 2:04 AM EDT [facility] Eos# 0.5 0.0 - 0.5 x10(3)/mc L 07/01/2018 2:04 AM EDT [facility] Baso # 0.3(H) 0.0 - 0.2 x10(3)/mc L 07/01/2018 2:04 AM EDT [facility] RBC Morph Macrocytic 07/01/2018 2:04 AM EDT [facility] Blood VENOUS BLOOD / Unknown Venipuncture / Unknown 07/01/2018 1:24 AM EDT 07/01/2018 1:40 AM EDT us Tarik Sheth MD HEMATOLOGY ORDERABLES Final Resu lt Performing Organization Address [facility] Co de Phone Number [facility] [address] [place] [address] * CREATINE KINASE (07/01/2018 1:24 AM EDT) CK 178 39 - 308 IU/L 07/01/2018 2:15 AM EDT [facility] Blood VENOUS BLOOD / Unknown Venipuncture / Unknown 07/01/2018 1:24 AM EDT 07/01/2018 1:45 AM EDT us Tarik Sheth MD CHEMISTRY ORDERABLES Final Resul t Performing Organization Address [facility] de Phone Number [facility] [address] [place] [address] * XR CHEST PA AND LATERAL (07/01/2018 1:10 AM EDT) Only the most recent of2 resultswithin the time period is included. Anatomical Region Laterality Modality Chest Radiographic Helena ging 07/01/2018 1:10 AM EDT Impressions 07/01/2018 1:12 AM EDT No acute finding. Narrative 07/01/2018 1:12 AM EDT PA AND LATERAL CHEST X-RAY, 07/01/2018 1:10 AM CLINICAL HISTORY: -LEG PAIN COMPARISON: 08/16/2017 PROCEDURE COMMENTS: Frontal and lateral views of the chest. FINDINGS: Cardiovascular structures within normal limits. No pneumonia or effusion. No pneumothorax. Stable elevation right hemidiaphragm. Surgical clips adjacent to aortic arch. Procedure Note Alan Mistry MD - 07/01/2018 PA AND LATERAL CHEST X-RAY, 07/01/2018 1:10 AM CLINICAL HISTORY: -LEG PAIN COMPARISON: 08/16/2017 PROCEDURE COMMENTS: Frontal and lateral views of the chest. FINDINGS: Cardiovascular structures within normal limits. No pneumonia or effusion.No pneumothorax. Stable elevation right hemidiaphragm. Surgical clipsadjacent to aortic arch. IMPRESSION: No acute finding. us Tarik Sheth MD IMG DIAGNOSTIC IMAGING ORDERABLE S Final Result * SCANNED PRE/POST PROCEDURES (06/01/2011 12:00 AM EDT) Narrative 06/01/2011 11:45 AM EDT Ordered by an unspecified provider. Transcriptions Unknown, Unknown - 06/01/2011 11:45 AM EDT us Unknown Unknown PROCEDURE/MINOR SURGICAL ORDERAB LES Final Result * SCANNED ANESTHESIA FORMS (06/01/2011 12:00 AM EDT) Narrative 06/01/2011 11:45 AM EDT Ordered by an unspecified provider. Transcriptions Unknown, Unknown - 06/01/2011 11:45 AM EDT us Unknown Unknown PROCEDURE/MINOR SURGICAL ORDERAB LES Final Result * SCANNED OR REPORT (05/31/2011 12:00 AM EDT) Narrative 05/31/2011 11:36 AM EDT Ordered by an unspecified provider. Transcriptions Unknown, Unknown - 05/31/2011 11:36 AM EDT us Unknown Unknown PROCEDURE/MINOR SURGICAL ORDERAB LES Final Result * SURGICAL PATHOLOGY REPORT (05/28/2011 3:16 PM EDT) Surgical Pathology Report PATIENT NAME:EDI GREENBERG Surgical Pathology Report Accession Number Collected Date/Time Received Date/Time -[id number] 05/28/11 15:16 EDT 05/28/11 15:16 EDT Diagnosis Tonsils, excision: - Chronic lymphoid hyperplasia. ERASMO JANE MD (Electronically signed by) Verified: 05/31/2011 [facility] Clinical Information Chronic tonsillitis. Gross Description Received in formalin labeled with the patient s name and tonsils are undesignated 2 enlarged oval shaped palatine tonsils (each 4.0 x 2.0 x 1.8 cm). The mucosa surfaces are pale rhoades-red and smooth. Serial sections show uniform, rhoades-pink tissue without focal lesions. Cordage Sales Representative sections of each tonsil are submitted in two cassettes./[place] DO /[place] Microscopic Description Microscopic examination is performed and the findings corroborate the diagnosis. [facility] 05/28/2011 3:16 PM EDT us Patrice Mora MD PATHOLOGY ORDERABLES Final Resu lt Performing Organization Address [facility] Co de Phone Number [facility] [address] [place] [address] * (ABNORMAL) SMEAR REVIEW (07/21/2010 5:25 AM EST) Only the most recent of4 resultswithin the time period is included. Bands 1 0 - 10 % [facility] Atyp Lymph 19(H) 0 - 5 % [facility] RBC Morph Macrocytic [facility] Aniso Slight [facility] Poik Slight [facility] Polychrom Slight [facility] Ovalocyte Occasional [facility] Blood specimen (specimen) 07/21/2010 5:25 AM EST 07/21/2010 5:51 AM EST us Nikolas Cortez MD HEMATOLOGY ORDERABLES Final Result Performing Organization Address [facility] Co de Phone Number [facility] [address] [place] [address] * VANCOMYCIN LEVEL TROUGH (07/21/2010 5:25 AM EST) Only the most recent of2 resultswithin the time period is included. Vanco Tr 12.33 7.00 - 15.00 mcg/mL [facility] Blood specimen (specimen) UPPER LIMB STRUCTURE / Unknown 07/21/2010 5:25 AM EST 07/21/2010 5:51 AM EST Narrative [facility] - 07/21/2010 6:48 AM EST Draw before dose of medication. us Lizandro Mcclain MD CHEMISTRY ORDERABLES Final Resul t [facility] [address] [place] [address] * CT SOFT TISSUE NECK W CONTRAST (07/20/2010 8:48 AM EST) Only the most recent of2 resultswithin the time period is included. Anatomical Region Laterality Modality Neck Computed Tomogra phy 07/20/2010 7:30 AM EST Impressions 07/21/2010 12:01 PM EST IMPRESSION: 1. Interval positive response to therapy including decreased size enlarged palatine tonsils, more uniform, decreased size of lymph nodes and resolved prior submandibular subcutaneous induration. 2. New small patchy or nodular infiltrates bilateral upper lungs. Narrative 07/21/2010 12:[address] soft tissue neck with contrast: 07/20/2010 COMPARISON: 07/17/2010. INDICATION: 39-year-old followup tonsillar abscess. Technical factors: 3 mm axial images obtained from skull base to naina following administration 75 mL IV Isovue-370. Coronal and sagittal reconstructed images obtained. FINDINGS: In the interval between exams, both palatine tonsils have decreased in size. They are both still large and both still abut one another anteriorly, but the degree of enlargement and midline contact is less. Prior patchy low-attenuation areas posterior left palatine tonsil no longer seen. Left piriform sinuses now partially visible, where as previously, it was completely effaced. Vallecula has normal thickness except for its posterior left lateral margin, which is surrounded by tonsillar tissues. Nasopharynx tissues full in appearance. Prior bilateral enlarged cervical lymph nodes, left greater than right, have decreased in size, especially at jugulodigastric region. There are still a number of small bilateral scattered lymph nodes. Most of their margins are well circumscribed. There are some small indistinct lymph nodes left supraclavicular region. No suppurative or abnormal enhancing lymph nodes. Prior inflammatory changes of left submandibular subcutaneous fat and fascial planes have resolved. Parotid, submandibular and thyroid glands normal. No abnormalities of the vocal cords, which are adducted. Both maxillary sinuses contain a single mucous retention cyst. Paranasal and mastoid sinuses are otherwise clear. Lower brain normal. In anterior left apex, there are a few small hazy patchy infiltrates. In right upper lung, there is a more nodular infiltrate measuring about 1.3 cm in size. These are new findings. Procedure Note Jaymie Goff - 07/21/2010 CT soft tissue neck with contrast: 07/20/2010 COMPARISON: 07/17/2010. INDICATION: 39-year-old followup tonsillar abscess. Technical factors: 3 mm axial images obtained from skull base to carinafollowing administration 75 mL IV [id number]. Coronal and sagittal reconstructedimages obtained. FINDINGS: In the interval between exams, both palatine tonsils have decreased insize. They are both still large and both still abut one another anteriorly, but the degree ofenlargement and midline contact is less. Prior patchy low-attenuation areas posterior leftpalatine tonsil no longer seen. Left piriform sinuses now partially visible, where aspreviously, it was completely effaced. Vallecula has normal thickness except for itsposterior left lateral margin, which is surrounded by tonsillar tissues. Nasopharynx tissues fullin appearance. Prior bilateral enlarged cervical lymph nodes, left greater than right,have decreased in size, especially at jugulodigastric region. There are still a number of smallbilateral scattered lymph nodes. Most of their margins are well circumscribed. There are somesmall indistinct lymph nodes left supraclavicular region. No suppurative or abnormalenhancing lymph nodes. Prior inflammatory changes of left submandibular subcutaneous fat andfascial planes have resolved. Parotid, submandibular and thyroid glands normal. No abnormalities of thevocal cords, which are adducted. Both maxillary sinuses contain a single mucous retentioncyst. Paranasal and mastoid sinuses are otherwise clear. Lower brain normal. In anterior left apex, there are a few small hazy patchy infiltrates. Inright upper lung, there is a more nodular infiltrate measuring about 1.3 cm in size. Theseare new findings. IMPRESSION: 1. Interval positive response to therapy including decreased size enlargedpalatine tonsils, more uniform, decreased size of lymph nodes and resolved priorsubmandibular subcutaneous induration. 2. New small patchy or nodular infiltrates bilateral upper lungs. us Lizandro Mcclain MD IMG CT ORDERABLES Final Result * SCANNED OR REPORT (07/19/2010 12:00 AM EDT) Narrative 07/19/2010 3:41 PM EST Ordered by an unspecified provider. Transcriptions Unknown, Unknown - 07/19/2010 10:41 AM EST us Unknown Unknown PROCEDURE/MINOR SURGICAL ORDERAB LES Final Result * (ABNORMAL) MONONUCLEOSIS SCREEN (07/17/2010 4:15 AM EDT) [place] Screen Positive(A ) Negative [facility] Blood specimen (specimen) UPPER LIMB STRUCTURE / Unknown 07/17/2010 4:15 AM EDT 07/17/2010 4:47 AM EDT us Louise Zuniga MD CHEMISTRY ORDERABLES Final Res ult [facility] [address] [place] [address] Visit Diagnoses Diagnosis Start Date Pharyngitis Acute pharyngitis 07/17/2010 Peritonsillar abscess 07/17/2010 Unspecified essential hypertension 07/17/2010 Shortness of breath 07/17/2010 Abnormal chest sounds 08/16/2017 Lower limb ischemia Unspecified circulatory system disorder 07/01/2018 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, initial encounter 07/02/2018 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, subsequent encounter 07/12/2018 Ischemic leg Unspecified circulatory system disorder 07/12/2018 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, sequela 07/19/2018 S/P split thickness skin graft 08/10/2018 Hx of fasciotomy Personal history of surgery to other organs 08/10/2018 S/P split thickness skin graft 08/17/2018 Hx of fasciotomy Personal history of surgery to other organs 08/17/2018 Encounter to establish care Reserved for inherently not codable concepts WITHOUT codable children 09/06/2018 Paroxysmal atrial fibrillation (HCC) Atrial fibrillation 09/06/2018 Essential hypertension Unspecified essential hypertension 09/06/2018 S/P split thickness skin graft 09/07/2018 Hx of fasciotomy Personal history of surgery to other organs 09/07/2018 S/P split thickness skin graft 11/09/2018 Hx of fasciotomy Personal history of surgery to other organs 11/09/2018 Right leg numbness Disturbance of skin sensation 11/09/2018 Leg pain, right Pain in limb 11/09/2018 Paroxysmal atrial fibrillation (HCC) Atrial fibrillation 12/13/2018 Essential hypertension Unspecified essential hypertension 12/13/2018 Encounter to establish care Reserved for inherently not codable concepts WITHOUT codable children 12/20/2018 Paroxysmal atrial fibrillation (HCC) Atrial fibrillation 12/20/2018 Essential hypertension Unspecified essential hypertension 12/20/2018 Paroxysmal atrial fibrillation (HCC) Atrial fibrillation 01/16/2019 Essential hypertension Unspecified essential hypertension 01/16/2019 Encounter to establish care Reserved for inherently not codable concepts WITHOUT codable children 03/17/2019 Paroxysmal atrial fibrillation (HCC) Atrial fibrillation 03/17/2019 Essential hypertension Unspecified essential hypertension 03/17/2019 Paroxysmal atrial fibrillation (HCC) Atrial fibrillation 03/20/2019 Encounter to establish care Reserved for inherently not codable concepts WITHOUT codable children 03/20/2019 Essential hypertension Unspecified essential hypertension 03/20/2019 Encounter to establish care Reserved for inherently not codable concepts WITHOUT codable children 04/04/2019 Paroxysmal atrial fibrillation (HCC) Atrial fibrillation 04/04/2019 Essential hypertension Unspecified essential hypertension 04/04/2019 Encounter to establish care Reserved for inherently not codable concepts WITHOUT codable children 05/17/2019 Paroxysmal atrial fibrillation (HCC) Atrial fibrillation 05/17/2019 Essential hypertension Unspecified essential hypertension 05/17/2019 Encounter to establish care Reserved for inherently not codable concepts WITHOUT codable children 10/05/2019 Paroxysmal atrial fibrillation (HCC) Atrial fibrillation 10/05/2019 Essential hypertension Unspecified essential hypertension 10/05/2019 Encounter to establish care Reserved for inherently not codable concepts WITHOUT codable children 02/26/2020 Paroxysmal atrial fibrillation (HCC) Atrial fibrillation 02/26/2020 Essential hypertension Unspecified essential hypertension 02/26/2020 Non-ST elevated myocardial infarction (non-STEMI) (HCC) Acute myocardial infarction, subendocardial infarction, episode of care unspecified 02/17/2022 Cardiac arrhythmia, unspecified cardiac arrhythmia type 02/18/2022 Acute chest pain Chest pain, unspecified 02/16/2022 Non-ST elevated myocardial infarction (non-STEMI) (HCC) Acute myocardial infarction, subendocardial infarction, episode of care unspecified 02/16/2022 Cardiac arrhythmia, unspecified cardiac arrhythmia type 02/16/2022 Femoral artery occlusion, right Embolism and thrombosis of unspecified artery 07/01/2018 Tobacco abuse Tobacco use disorder 07/01/2018 Essential hypertension Unspecified essential hypertension 07/01/2018 Ischemic leg Unspecified circulatory system disorder 07/01/2018 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 Traumatic compartment syndrome of lower extremity 07/01/2018 Paroxysmal atrial fibrillation (HCC) Atrial fibrillation 07/01/2018 Aortic thrombus (HCC) Embolism and thrombosis of thoracic aorta 07/01/2018 Acute chest pain Chest pain, unspecified 02/16/2022 Paroxysmal atrial fibrillation (HCC) Atrial fibrillation 02/16/2022 Tobacco use disorder 02/16/2022 History of arterial thrombosis 02/16/2022 Sustained VT (ventricular tachycardia) (HCC) Paroxysmal ventricular tachycardia 02/16/2022 Essential hypertension Unspecified essential hypertension 02/16/2022 NSTEMI (non-ST elevated myocardial infarction) (HCC) Acute myocardial infarction, subendocardial infarction, episode of care unspecified 02/16/2022 Alcohol use disorder, severe, dependence (HCC) 02/16/2022 Fatty liver due to alcoholism 02/16/2022 Transaminitis Nonspecific elevation of levels of transaminase or lactic acid dehydrogenase (LDH) 02/16/2022 Coronary artery disease involving [place] coronary artery of [place] heart with unstable angina pectoris (HCC) 02/16/2022 Wide-complex tachycardia Paroxysmal ventricular tachycardia 02/16/2022 S/P catheter ablation of slow pathway Other postprocedural status 02/16/2022 Care Teams Vice Admiral Relationship Specialty Start Date End Date Sharri House [address] [facility] [id number] [place] [id number] PCP - General 07/17/10
--- OUTSIDE RECORDS SUMMARY | 2025-03-18 07:19 | XMS_ITS | Clinical Summary ---
Author Organization [facility] Address [address] [place] [address] Care Team Providers Care Finisher [employer] Name Role Phone Zeynep Schumacher APRN Primary Care Provider [phone] Allergies No known active allergies Medications Eliquis 5 MG tablet 06/20/20 24 Active atorvastatin (Lipitor) 40 MG tablet Take 1 tablet (40 mg) by mouth nightly. 08/01/20 23 Active cetirizine-pseudoe phedrine (ZyrTEC-D) 5-120 MG 12 hr tablet .COMPLEX 03/05/20 24 Active [facility] Allergy Relief D 5-120 MG 12 hr tablet Take 1 tablet by mouth 2 (two) times a day. 05/14/20 24 Active Eucrisa 2 % ointment Apply topically 1 (one) time each day. 03/06/20 24 Active cyanocobalamin 1000 MCG tablet Take 1 tablet by mouth daily. 03/19/20 24 Active metoprolol succinate XL (Toprol-XL) 50 MG 24 hr tablet Take 1 tablet (50 mg) by mouth 1 (one) time each day. 04/21/20 24 Active omeprazole (PriLOSEC) [address] capsule Take by mouth 1 (one) time each day. 04/21/20 24 Active sildenafil (Revatio) 20 MG tablet Take 1 tablet (20 mg) by mouth daily as needed. 07/31/20 24 Active carvedilol (Coreg) 12.5 MG tablet Take 1 tablet by mouth 2 times a day with meals. 10/11/19 25 Active furosemide (Lasix) 20 MG tablet TAKE 1 TABLET (20 MG) BY MOUTH 1 (ONE) TIME EACH DAY. 90 tablet 01/08/20 25 025 Active Additional Information Patient not taking.Reported on 01/10/2025 spironolactone (Aldactone) 50 MG tablet TAKE 1 TABLET (50 MG) BY MOUTH DAILY 90 tablet 01/08/20 25 Active Additional Information Patient not taking.Reported on 01/10/2025 carvedilol (Coreg) 6.25 MG tablet 01/07/20 Active lactulose (Kristalose) 10 g packetIndications: Decompensated cirrhosis (CMS/HCC),Hepatic encephalopathy (CMS/HCC),Chronic idiopathic constipation Take 1 packet by mouth 3 times a day. 90 packet 5 02/20/20 Active Active Problems No known active problems Encounters Date Type Department Care Team Description 02/19/2025 Results Follow-Up [facility] Medicine Specialties [address] [place] [address], [address] [place] [phone] Monica Bee MD 02/19/[address] [facility] Medicine Specialties [address] [place] [address], [address] [place] [phone] Monica Bee MD Decompensated cirrhosis (CMS/HCC) (Primary Dx); Hepatic encephalopathy (CMS/HCC); Chronic idiopathic constipation 02/14/2025 Orders Only [address] [phone] Quynh Denis Decompensated cirrhosis (CMS/HCC); Alcoholic cirrhosis of liver without ascites (CMS/HCC); Other ascites 02/06/[address] [address] Wisam Martinez RN Prior-authorization/i nsurance Verification (CMM PA/Kristalose packets/GUTIERREZ: [id number]) 01/15/[address] [address] Wisam Martinez RN 01/10/2025 9:17 AM EDT - 01/10/2025 11:59 PM EDT Hospital Encounter [facility] Radiology [address] [place] [address] Decompensated cirrhosis (CMS/HCC) Discharge Disposition: Home or Self Care 01/10/2025 8:20 AM EDT Office Visit [facility] Medicine Specialties [address] [place] [address] Leonardo Bautista MD Decompensated cirrhosis (CMS/HCC) (Primary Dx) 01/10/2025 Results Follow-Up [facility] Medicine Specialties [address] [place] [address] Leonardo Bautista MD 01/10/2025 Travel 01/09/2025 Travel 01/05/[address] [facility] Medicine Specialties [address] [place] [address] Monica Bee MD 01/04/2025 12:36 PM EDT Anesthesia Event [facility] [address] [place] [address] Luis Dhillon MD Baker, Matthew L, MD 01/04/2025 11:49 AM EDT - 01/04/2025 11:59 PM EDT Hospital Encounter [facility] [address] [place] [address] Barbara Varela, Luis Grigsby MD Harris, Kristi A, RN Campbell, Robert C, CRNA Alcoholic cirrhosis of liver without ascites (CMS/HCC); Decompensated cirrhosis (CMS/HCC); Hepatic encephalopathy (CMS/HCC) Discharge Disposition: Home or Self Care 01/04/2025 Travel 01/01/2025 Travel from Last 3 Months Family History Medical History Relation Name Comments Skin Infections Father Darrian Stroke Father Darrian Ulcerative colitis Father Darrian Heart attack Mother Victoria Obesity Mother Victoria Recurrent Infections Mother Victoria Rheumatologic disease Mother Victoria Skin Infections Mother Victoria Vision loss Mother Victoria Relation Name Status Comments Father Darrian Mother Victoria Social History Tobacco Use Types Packs/Day Years [...] Sign Reading Time Taken Comments Blood Pressure 126/88 01/10/2025 8:10 AM EDT Pulse 74 01/10/2025 8:10 AM EDT Temperature 36.6 C (97.9 F) 01/10/2025 8:10 AM EDT Respiratory Rate 15 01/04/2025 1:25 PM EDT Oxygen Saturation 96% 01/10/2025 8:10 AM EDT Inhaled Oxygen Concentration - - Weight 88.4 kg (194 lb 14.2 oz) 01/10/2025 8:10 AM EDT Height 177.8 cm (5' 10 ) 01/10/2025 8:10 AM EDT Body Mass Index 27.96 01/10/2025 8:10 AM EDT Plan of Treatment Upcoming Encounters Date Type Department Care Team (Late st Contact Info) Description 04/09/2025 9:00 AM EDT Clinical Support [facility] Medicine Specialties [address] [place] [address] Tiffany Leon, RD [address] [place] [address] 07/18/2025 8:00 AM EST Office Visit [facility] [address] [place] [address] Sheyla Colin MD [address] [place] [address] Health Maintenance Due Date Last Done Comments [facility]-Medicare Annual Wellness (AWV) 1972 [facility]-Infant/Child/Adol SDOH Screenings 1972 [facility]- SDOH Screenings 1990 [facility]-Adult SDOH Screenings 1990 [facility]-DTaP,Tdap,and Td Vaccines (1 - Tdap) 1991 [facility]-Hepatitis A Vaccines (1 of 2 - Risk 2-dose series) 1991 [facility]-Hepatitis B Vaccines (1 of 3 - 19+ 3-dose series) 1991 [facility]-Pneumococcal Vaccine: 50+ Years (1 of 2 - PCV) 1991 CT Colonography 2017 Colonoscopy 2017 FIT-DNA 2017 FIT 2017 FOBT 2017 Sigmoidoscopy 2017 [facility]-Colorectal Cancer Screening 2017 [facility]-Zoster Vaccines (1 of 2) 2022 DQF-THSGD-27 Vaccine (1 - season) 2024 [facility]-Influenza Vaccine (#1) 2025 [facility]-Depression Screening 11/01/2025 11/01/2024, 10/14 [facility]-HIV Screening Completed 06/21/2024 [facility]-Hepatitis C Screening Completed 06/21/2024 [facility]-Obesity Intervention Completed 025, 11/08/2024, 11/02/2024, Additional history exists HPV Vaccines Aged Out No longer eligi ble based on patient's age to complete this topic [facility]-HIB Vaccines Aged Out No longer e ligible based on patient's age to complete this topic [facility]-IPV Vaccines Aged Out No longer e ligible based on patient's age to complete this topic [facility]-Rotavirus Vaccines Aged Out No lo nger eligible based on patient's age to complete this topic Procedures Procedure Name Priority Date/Time Associated Diagnosis Comments US LIVER SCREEN Routine 02/14/2025 5:01 PM EDT Decompensated cirrhosis (CMS/HCC) Alcoholic cirrhosis of liver without ascites (CMS/HCC) Other ascites XR CHEST 2 VIEWS Routine 01/10/2025 9:26 AM EDT Decompensated cirrhosis (CMS/HCC) HEPATITIS B SURFACE ANTIBODY, QUANTITATIVE Routine 01/10/2025 9:15 AM EDT Decompensated cirrhosis (CMS/HCC) HEPATITIS A ANTIBODY IGG Routine 01/10/2025 9:15 AM EDT Decompensated cirrhosis (CMS/HCC) CBC WITH AUTO DIFFERENTIAL Routine 01/10/2025 9:15 AM EDT Decompensated cirrhosis (CMS/HCC) COMPREHENSIVE METABOLIC PANEL, PLASMA Routine 01/10/2025 9:15 AM EDT Decompensated cirrhosis (CMS/HCC) PROTHROMBIN TIME(PT) / INR Routine 01/10/2025 9:15 AM EDT Decompensated cirrhosis (CMS/HCC) EGD Routine 01/04/2025 12:49 PM EDT Alcoholic cirrhosis of liver without ascites (CMS/HCC) Decompensated cirrhosis (CMS/HCC) Hepatic encephalopathy (CMS/HCC) ACUTE HEPATITIS PANEL Routine 06/21/2024 11:15 AM EDT Alcoholic cirrhosis of liver without ascites (CMS/HCC) Other ascites HIV 1/2 ANTIBODY/ANTIGEN SCREEN WITH REFLEX TO HIV I/II DIFFERENTIATION Routine 06/21/2024 11:15 AM EDT Alcoholic cirrhosis of liver without ascites (CMS/HCC) Other ascites from Last 3 Months or Most Recently Relevant to Health Maintenance Results * US Liver Screen (02/14/2025 5:01 PM EDT) Anatomical Region Laterality Modality Abdomen, Liver Ultrasound us Sonja Coello MD IMG US PROCEDURES Final Result * XR Chest 2 Views (01/10/2025 9:26 AM EDT) Anatomical Region Laterality Modality Chest Digital Radiogra phy Impressions 01/10/2025 10:51 AM EDT Minimal-trace bilateral pleural effusions/pleural thickening. CRITICAL RESULT: No. COMMUNICATION: Per this written report. By electronically signing this report, I, the attending physician, attest that I have personally reviewed the images/data for the above examination(s) and agree with the final edited report. Drafted by JESSICA Frias on 01/10/2025 9:42 AM Final report signed by Theodore Peng MD on 01/10/2025 10:51 AM Narrative 01/10/2025 10:51 AM EDT CLINICAL INDICATION: pleural effusion TECHNIQUE: XR CHEST 2 VIEWS COMPARISON: June 21, 2024. FINDINGS: Small layering right and trace left pleural effusion/pleural thickening. No new airspace consolidation. Cardiac silhouette and mediastinal contours are within normal limits. No pneumothorax. No pleural effusion. Procedure Note Theodore Peng MD - 01/10/2025 CLINICAL INDICATION: pleural effusion TECHNIQUE: XR CHEST 2 VIEWS COMPARISON: June 21, 2024. FINDINGS: Small layering right and trace left pleural effusion/pleural thickening.No new airspace consolidation. Cardiac silhouette and mediastinal contoursare within normal limits. No pneumothorax. No pleural effusion. IMPRESSION: Minimal-trace bilateral pleural effusions/pleural thickening. CRITICAL RESULT: No. COMMUNICATION: Per this written report. By electronically signing this report, I, the attending physician, attestthat I have personally reviewed the images/data for the aboveexamination(s) and agree with the final edited report. Drafted by JESSICA Frias on 01/10/2025 9:42 AM Final report signed by Theodore Peng MD on 01/10/2025 10:51 AM Sonja Coello MD IMG XR PROCEDURES Final Result * Hepatitis B Surface Antibody, Quantitative (01/10/2025 9:15 AM EDT) Hepatitis B Surface Antibody, Quantitative <8.00 NonReactiv e: <8, Grayzone: 8 - <12, Reactive: >= 12 mIU/mL 01/10/2025 11:20 AM EDT [facility] Comment: Nonreactive. Individual is considered not immune to HBV infection. Blood Venous blood specimen / Unknown Venipuncture / Unknown 01/10/2025 9:15 AM EDT 01/10/2025 9:15 AM EDT us Sonja Coello MD LAB BLOOD ORDERABLES Fin al Result Performing Organization Address [facility] Co de Phone Number [facility] [address] [place] [address] * Hepatitis A, IgG (01/10/2025 9:15 AM EDT) Hepatitis A Antibody IgG Negative Negative 01/10/2025 11:20 AM EDT [facility] Blood Venous blood specimen / Unknown Venipuncture / Unknown 01/10/2025 9:15 AM EDT 01/10/2025 9:15 AM EDT us Sonja Coello MD LAB BLOOD ORDERABLES Fin al Result Performing Organization Address [facility] Phone Number [facility] [address] [place] [address] * (ABNORMAL) Protime-INR (01/10/2025 9:15 AM EDT) Prothrombin Time 19.0(H) 12.0 - 14.3 sec LAB COAGULATION METHOD 01/10/2025 10:42 AM EDT [facility] INR 1.6(H) 0.9 - 1.1 LAB COAGULATION METHOD 01/10/2025 10:42 AM EDT [facility] Blood Venous blood specimen / Unknown Venipuncture / Unknown 01/10/2025 9:15 AM EDT 01/10/2025 9:15 AM EDT Narrative [facility] - 01/10/2025 10:42 AM EDT OPTIMAL INR RANGES FOR PATIENT ON ORAL ANTICOAGULANT THERAPY Prevention of venous thromboembolism INR 2.0 to 3.0 In patients with heart disease: Atrial fibrillation INR 2.0 to 3.0 Valvular heart disease INR 2.0 to 3.0 Tissue heart valves INR 2.0 to 3.0 Mechanical prosthetic valves INR 2.5 to 3.5 Prevention of recurrent [place] INR 2.5 to 3.5 us Sonja Coello MD LAB BLOOD ORDERABLES Fin al Result [facility] [address] [place] [address] * (ABNORMAL) CBC and differential (01/10/2025 9:15 AM EDT) WBC Count 10.78(H) 3.70 - 10.30 10*3/uL LAB HEMATOLOGY METHOD 01/10/2025 10:27 AM EDT [facility] RBC Count 4.69 4.60 - 6.10 10*6/uL LAB HEMATOLOGY METHOD 01/10/2025 10:27 AM EDT [facility] HGB 14.5 13.7 - 17.5 g/dL LAB HEMATOLOGY METHOD 01/10/2025 10:27 AM EDT [facility] HCT 44.6 40.0 - 51.0 % LAB HEMATOLOGY METHOD 01/10/2025 10:27 AM EDT [facility] Platelet Count 240 155 - 369 10*3/uL LAB HEMATOLOGY METHOD 01/10/2025 10:27 AM EDT [facility] MCV 95 79 - 98 fL LAB HEMATOLOGY METHOD 01/10/2025 10:27 AM EDT [facility] MCH 30.9 26.0 - 32.0 pg LAB HEMATOLOGY METHOD 01/10/2025 10:27 AM EDT [facility] MCHC 32.5 30.7 - 35.5 g/dL LAB HEMATOLOGY METHOD 01/10/2025 10:27 AM EDT [facility] RDW 12.5 11.5 - 14.5 % LAB HEMATOLOGY METHOD 01/10/2025 10:27 AM EDT [facility] MPV 9.8 8.8 - 12.5 fL LAB HEMATOLOGY METHOD 01/10/2025 10:27 AM EDT [facility] nRBC 0.0 <=0.0 per 100 WBCs LAB HEMATOLOGY METHOD 01/10/2025 10:27 AM EDT [facility] Differential Type Automated LAB HEMATOLOGY METHOD 01/10/2025 10:27 AM EDT [facility] Neutrophils % 55 % LAB HEMATOLOGY METHOD 01/10/2025 10:27 AM EDT [facility] Lymphocytes % 30 % LAB HEMATOLOGY METHOD 01/10/2025 10:27 AM EDT [facility] Monocytes % 10 % LAB HEMATOLOGY METHOD 01/10/2025 10:27 AM EDT [facility] Eosinophils % 4 % LAB HEMATOLOGY METHOD 01/10/2025 10:27 AM EDT [facility] Basophils % 1 % LAB HEMATOLOGY METHOD 01/10/2025 10:27 AM EDT [facility] Immature Granulocytes % 0 % LAB HEMATOLOGY METHOD 01/10/2025 10:27 AM EDT [facility] Neutrophils Absolute 5.94 1.60 - 6.10 10*3/uL LAB HEMATOLOGY METHOD 01/10/2025 10:27 AM EDT [facility] Lymphocytes Absolute 3.21 1.20 - 3.90 10*3/uL LAB HEMATOLOGY METHOD 01/10/2025 10:27 AM EDT [facility] Monocytes Absolute 1.12(H) 0.30 - 0.90 10*3/uL LAB HEMATOLOGY METHOD 01/10/2025 10:27 AM EDT [facility] Eosinophils Absolute 0.39 0.00 - 0.50 10*3/uL LAB HEMATOLOGY METHOD 01/10/2025 10:27 AM EDT [facility] Basophils Absolute 0.09 0.00 - 0.10 10*3/uL LAB HEMATOLOGY METHOD 01/10/2025 10:27 AM EDT [facility] Immature Granulocytes Absolute 0.03 0.00 - 0.06 10*3/uL LAB HEMATOLOGY METHOD 01/10/2025 10:27 AM EDT [facility] Blood Venous blood specimen / Unknown Venipuncture / Unknown 01/10/2025 9:15 AM EDT 01/10/2025 9:15 AM EDT Narrative [facility] - 01/10/2025 10:27 AM EDT Therapeutic decision making should be based on absolute values, rather than percentages. us Sonja Coello MD LAB BLOOD ORDERABLES Fin al Result [facility] [address] [place] [address] * (ABNORMAL) Comprehensive metabolic panel (01/10/2025 9:15 AM EDT) [facility] Glucose, Plasma 107(H) 74 - 99 mg/dL 01/10/2025 10:49 AM EDT [facility] BUN, Plasma 15 7 - 21 mg/dL 01/10/2025 10:49 AM EDT [facility] Creatinine, Plasma 1.16 0.70 - 1.20 mg/dL 01/10/2025 10:49 AM EDT [facility] BUN/Creatinine Ratio 13 01/10/2025 10:49 AM EDT [facility] Sodium, Plasma 141 136 - 145 mmol/L 01/10/2025 10:49 AM EDT [facility] Potassium, Plasma 4.5 3.6 - 4.9 mmol/L 01/10/2025 10:49 AM EDT [facility] Chloride, Plasma 105 97 - 107 mmol/L 01/10/2025 10:49 AM EDT [facility] CO2, Plasma 24 22 - 29 mmol/L 01/10/2025 10:49 AM EDT [facility] Anion Gap 12 6 - 16 mmol/L 01/10/2025 10:49 AM EDT [facility] Total Calcium, Plasma 10.4(H) 8.9 - 10.2 mg/dL 01/10/2025 10:49 AM EDT [facility] Total Protein 8.2(H) 6.3 - 7.9 g/dL 01/10/2025 10:49 AM EDT [facility] Albumin, Plasma 4.5 3.5 - 5.2 g/dL 01/10/2025 10:49 AM EDT [facility] AST, Plasma 33 10 - 50 U/L 01/10/2025 10:49 AM EDT [facility] ALT, Plasma 33 10 - 50 U/L 01/10/2025 10:49 AM EDT [facility] Alkaline Phosphatase, Plasma 133(H) 40 - 115 U/L 01/10/2025 10:49 AM EDT [facility] Total Bilirubin, Plasma 0.5 0.2 - 1.1 mg/dL 01/10/2025 10:49 AM EDT [facility] eGFRcr 75.8 mL/min/1.7 3m*2 01/10/2025 10:49 AM EDT [facility] Comment:Reported eGFRcr in m L/min/1.73m2 is based the CKD-EPI 2020 equation that does not use a race coefficient. Blood Venous blood specimen / Unknown Venipuncture / Unknown 01/10/2025 9:15 AM EDT 01/10/2025 9:15 AM EDT Sonja Coello MD LAB BLOOD ORDERABLES Fin al Result [facility] [address] [place] [address] * EGD (01/04/2025 12:49 PM EDT) Anatomical Region Laterality Modality Endoscopy Narrative 01/04/2025 12:48 PM EDT Table formatting from the original result was not included. Impression: The esophagus appeared normal. The stomach and duodenum appeared normal. Post Procedure Diagnosis Normal exam Recommendations Other Repeat EGD at interval to be determined by referring GI provider Continue present medications Ok to resume eliquis tonight Resume previous diet Findings and recommendations discussed w/ Mr. Greenberg post-procedure Indication Hepatic encephalopathy (CMS/HCC), Alcoholic cirrhosis of liver without ascites (CMS/HCC), Decompensated cirrhosis (CMS/HCC) Medications See anesthesia record for anesthesia administered medications. Staff Staff Role Courtney Bryan MD Proceduralist Luis Dhillon MD Anesthesiologist Lamar Daly, RN Endo Nurse Barbara Varela, Proceduralist Gilbert Melchor CRNA HVAC SALES ENGINEER Christina Garcia, ANNA Endo Nurse Preprocedure A history and physical has been performed, and patient medication allergies have been reviewed. The patient's tolerance of previous anesthesia has been reviewed. The risks and benefits of the procedure and the sedation options and risks were discussed with the patient. All questions were answered and informed consent obtained. Details of the Procedure The patient underwent monitored anesthesia care, which was administered by an anesthesia professional. The patient's blood pressure, heart rate, level of consciousness, oxygen and respirations were monitored throughout the procedure. The scope was introduced through the mouth and advanced to the second part of the duodenum. Retroflexion was performed in the cardia, fundus and incisura. Prior to the procedure, the patient's H. Pylori status was unknown. The patient experienced no blood loss. The procedure was not difficult. The patient tolerated the procedure well. There were no apparent adverse events. Patient reassessed immediately prior to sedation and felt to be medically appropriate to proceed as planned. Attestation I was present for the entire procedure Specimens No specimens were documented in this log. Findings Regular Z-line 40 cm from the incisors The esophagus appeared normal. No varices The stomach and duodenum appeared normal. us Sonja Coello MD GI PROCEDURE ORDERABLES Final Result * HIV 1 & 2 Antibody/Antigen Screen (06/21/2024 11:15 AM EDT) Pathologist [facility] HIV 1 & 2 Antibody/Antigen Screen Non Reactive Non Reactive 06/21/2024 1:22 PM EDT [facility] Comment:Screening for HIV 1 & 2 antibodies, and P24 antigen is NONREACTIVE. No confirmatory testing is required. Blood Venous blood specimen / Unknown Venipuncture / Unknown 06/21/2024 11:15 AM EDT 06/21/2024 11:17 AM EDT us Sonja Coello MD LAB BLOOD ORDERABLES Fin al Result [facility] [address] [place] [address] * Acute Hepatitis Panel (06/21/2024 11:15 AM EDT) Pathologist [facility] Hepatitis B Surf Antigen Negative Negative 06/21/2024 1:54 PM EDT [facility] Hepatitis C Antibody Negative Negative 06/21/2024 1:54 PM EDT [facility] Hepatitis A Antibody IgM Negative Negative 06/21/2024 1:54 PM EDT [facility] Hepatitis B Core Antibody IgM Negative Negative 06/21/2024 1:54 PM EDT [facility] Blood Venous blood specimen / Unknown Venipuncture / Unknown 06/21/2024 11:15 AM EDT 06/21/2024 11:17 AM EDT us Sonja Coello MD LAB BLOOD ORDERABLES Fin al Result [facility] [address] [place] [address] from Last 3 Months or Most Recently Relevant to Health Maintenance Insurance MEDICAID-[place] [employer] MEDICARE Care Teams Finisher [employer] Relationship Specialty Start Date End Date Zeynep Schumachre APRN [address] [place] [address] PCP - General 06/21/24
--- OUTSIDE RECORDS SUMMARY | 2025-03-18 07:19 | XMS_ITS | Encounter Summary ---
Author Organization [facility] Address [address] [place] [address] Care Team Providers Care Rn Post Partum Name Role Phone EndyZeynep schmitt Gm TRUONG Primary Care Provider [phone] Encounter Details Date Type Department Care Team (Late st Contact Info) Description 02/14/2025 Orders Only [facility] Medicine Specialties [address], [address] [place] [address] [place] [address] Decompensated cirrhosis (CMS/HCC); Alcoholic cirrhosis of liver without ascites (CMS/HCC); Other ascites Social History Tobacco Use Types Packs/Day Years [...] Description 04/09/2025 9:00 AM EDT Clinical Support [facility] Medicine Specialties [address], [address] [place] [address] Tiffany Leon, RD [address] [place] [address] 07/18/2025 8:00 AM EST Office Visit [facility] [address], [address] [place] [address] Sheyla Colin MD [address] [place] [address] documented as of this encounter Procedures Procedure Name Priority Date/Time Associated Diagnosis Comments US LIVER SCREEN Routine 02/14/2025 5:01 PM EDT Decompensated cirrhosis (CMS/HCC) Alcoholic cirrhosis of liver without ascites (CMS/HCC) Other ascites documented in this encounter Results * US Liver Screen (02/14/2025 5:01 PM EDT) Anatomical Region Laterality Modality Abdomen, Liver Ultrasound us Sonja Coello MD IMG US PROCEDURES Final Result documented in this encounter Visit Diagnoses Diagnosis Decompensated cirrhosis (CMS/HCC) Alcoholic cirrhosis of liver without ascites (CMS/HCC) Other ascites documented in this encounter Additional Health Concerns Assessment Noted Time PHQ-9 Depression Total Score: 0 11/01/19 25 10:26 AM EST A fall risk assessment has been complete d for the patient 01/10/2025 8:13 AM EDT A Body Mass Index follow-up plan has been documented for the patient 01/17/2025 12:04 AM EDT documented as of this encounter Care Teams Rn Post Partum Relationship Specialty Start Date End Date Zeynep Schumacher APRN [address] [place] [address] PCP - General 06/21/24 documented as of this encounter
--- OUTSIDE RECORDS SUMMARY | 2025-03-18 07:19 | XMS_ITS | Encounter Summary ---
Author Organization [facility] Address [address] [place] [address] Care Team Providers Care Dope And Fabric Worker Name Role Phone EndyZeynep Gm TRUONG Primary Care Provider [phone] Encounter Details Date Type Department Care Team (Late Contact Info) Description 02/19/2025 Orders Only [facility] Medicine Specialties [address], [address] [place] [address] Monica Bee MD [address] [place] [address] Decompensated cirrhosis (CMS/HCC) (Primary Dx); Hepatic encephalopathy (CMS/HCC); Chronic idiopathic constipation Social History Tobacco Use Types Packs/Day Years [...] Description 04/09/2025 9:00 AM EDT Clinical Support [facility] Medicine Specialties [address] [facility], [address]nd [place] [address] Tiffany Leon, RD [address] [place] [address] 07/18/2025 8:00 AM EST Office Visit [facility]ties [address], [address] [place] [address] Sheyla Colin MD [address] [place] [address] documented as of this encounter Visit Diagnoses Diagnosis Decompensated cirrhosis (CMS/HCC)- Primary Hepatic encephalopathy (CMS/HCC) Hepatic encephalopathy Chronic idiopathic constipation Unspecified constipation documented in this encounter Additional Health Concerns Assessment Noted Time PHQ-9 Depression Total Score: 0 11/01/19 25 10:26 AM EST A fall risk assessment has been complete d for the patient 01/10/2025 8:13 AM EDT A Body Mass Index follow-up plan has been documented for the patient 01/17/2025 12:04 AM EDT documented as of this encounter Care Teams Dope And Fabric Worker Relationship Specialty Start Date End Date Zeynep Schumacher APRN [address] [place] [address] PCP - General 06/21/24 documented as of this encounter
--- OUTSIDE RECORDS SUMMARY | 2025-03-18 07:19 | XMS_ITS | Encounter Summary ---
Author Organization [facility] Address [address] [place] [address] Care Team Providers Care Diamond Die Driller Name Role Phone EndyZeynep schmitt Gm TRUONG Primary Care Provider [phone] Reason for Visit * Reason Onset Date Comments Prior-authorization/insuranc e Verification 02/06/2025 GLORIA Mosqueda packetsKEY: [id number] Encounter Details Date Type Department Care Team (Late st Contact Info) Description 02/06/2025 Telephone [facility] [address], [address] [place] [address] Wisam Martinez, RN [facility] Prior-authorization/in surance Verification (GLORIA MORAN/Gianluca packets/GUTIERREZ: [id number]) Social History Tobacco Use Types Packs/Day Years [...] on file documented as of this encounter Miscellaneous Notes * Telephone Encounter - Wisam Martinez RN - 02/06/2025 10:39 AM EDT GLORIA Hough packets GUTIERREZ: [id number] documented in this encounter Plan of Treatment Upcoming Encounters Date Type Department Care Team (Late st Contact Info) Description 04/09/2025 9:00 AM EDT Clinical Support [facility] Medicine Specialties [address], [address] [place] [address] Tiffany Leon, RD [address] [place] [address] 07/18/2025 8:00 AM EST Office Visit [facility] Medicine Specialties [address], [address] [place] [address] Sheyla Colin MD [address] [place] [address] documented as of this encounter [...] documented as of this encounter Care Teams Diamond Die Driller Relationship Specialty Start Date End Date Zeynep Schumacher APRN [facility] [place] [address] PCP - General 06/21/24 documented as of this encounter
== END ==
LOC: SL 07:17
PROVIDERS: PCP Nurse Practitioner; Visit Provider Nurse Practitioner
DX: G47.33 Obstructive sleep apnea (adult) (pediatric) (principal)
CPT/HCPCS: G0399

== ENCOUNTER 2025-03-25 14:25 | Outpatient (CLI) | payer MEDICARE, MEDICAID, SELFPAY ==
--- OUTSIDE RECORDS SUMMARY | 2025-03-25 14:28 | XMS_ITS | Clinical Summary ---
Author Organization [facility] Address [address] [place] [address] Care Team Providers Care Drain Technician Name Role Phone Zeynep Schumacher APRN Primary Care Provider [phone] Allergies No known active allergies Medications Eliquis [...] Department Care Team Description 02/19/2025 Results Follow-Up [facility] Medicine Specialties [address] [place] [address], [address] [place] [address] Monica Bee MD 02/19/2025 Orders Only [facility] Medicine Specialties [address] [place] [address], [address] [place] [address] Monica Bee MD Decompensated cirrhosis (CMS/HCC) (Primary Dx); Hepatic encephalopathy (CMS/HCC); Chronic idiopathic constipation 02/14/2025 Orders Only [address] [address] Qunyh Denis Decompensated cirrhosis (CMS/HCC); Alcoholic cirrhosis of liver without ascites (CMS/HCC); Other ascites 02/06/[address] [address] Wisam Martinez RN Prior-authorization/i nsurance Verification (CMM PA/Kristalose packets/GUTIERREZ: [id number]) 01/15/[address] [address] Wisam Martinez RN 01/10/2025 9:17 AM EDT - 01/10/2025 11:59 PM EDT Hospital Encounter [facility] [address], [address] [place] [address] Decompensated cirrhosis (CMS/HCC) Discharge Disposition: Home or Self Care 01/10/2025 8:20 AM EDT Office Visit [facility] Medicine Specialties [address], [address] [place] [address] Leonardo Bautista MD Decompensated cirrhosis (CMS/HCC) (Primary Dx) 01/10/2025 Results Follow-Up [facility] Medicine Specialties [address], [address] [place] [address] Leonardo Bautista MD 01/10/2025 Travel 01/09/2025 Travel 01/05/2025 Refill [facility] Medicine Specialties [address], [address] [place] [address] Monica Bee MD 01/04/2025 12:36 PM EDT Anesthesia Event [facility] [address] [place] [address] Luis Dhillon MD Baker, Matthew L, MD 01/04/2025 11:49 AM EDT - 01/04/2025 11:59 PM EDT Hospital Encounter [facility] [address] [place] [address] Barbara Varela, Luis Grigsby MD Harris, Kristi [...] Description 04/09/2025 9:00 AM EDT Clinical Support [facility] Medicine Specialties [address], [address] [place] [address] Tiffany Leon, RD [address] [place] [address] 07/18/2025 8:00 AM EST Office Visit [facility] [address], [address] [place] [address] Sheyla Colin MD [address] [place] [address] Health Maintenance Due Date Last Done Comments [facility]-Medicare Annual Wellness (AWV) 1972 [facility]-/Child/Adol SDOH Screenings 1972 [id number] Vaccine (#1) 1977 [facility]- SDOH Screenings 1990 [facility]-Adult SDOH Screenings [...] 2017 [facility]-Zoster Vaccines (1 of 2) 2022 [facility]-Influenza Vaccine (#1) 2025 [facility]-Depression Screening 11/01/2025 [...] >= 12 mIU/mL 01/10/2025 11:20 AM EDT [facility] Comment: Nonreactive. Individual is considered not immune to HBV infection. Blood Venous blood specimen / Unknown Venipuncture / Unknown 01/10/2025 9:15 AM EDT 01/10/2025 9:15 AM EDT Result Qasim Coello MD LAB BLOOD ORDERABLES Fin al Result Performing Organization Address City/[facility]/ZIP Co de Phone Number [facility] [address] [place] [address] * Hepatitis A, IgG (01/10/2025 9:15 AM EDT) Hepatitis A Antibody IgG Negative Negative 01/10/2025 11:20 AM EDT [facility] Blood Venous blood specimen / Unknown Venipuncture / Unknown 01/10/2025 9:15 AM EDT 01/10/2025 9:15 AM EDT Result Qasim Coello MD LAB BLOOD ORDERABLES Fin al Result Performing Organization Address [facility] de Phone Number [facility] [address] [place] [address] * (ABNORMAL) Protime-INR (01/10/2025 9:15 AM EDT) Prothrombin Time 19.0(H) 12.0 - 14.3 sec LAB COAGULATION METHOD 01/10/2025 10:42 AM EDT [facility] INR 1.6(H) 0.9 - 1.1 LAB COAGULATION METHOD 01/10/2025 10:42 AM EDT [facility] Blood Venous blood specimen / Unknown Venipuncture / Unknown 01/10/2025 9:15 AM EDT 01/10/2025 9:15 AM EDT Narrative [facility] - 01/10/2025 10:42 AM EDT OPTIMAL INR RANGES FOR PATIENT ON ORAL ANTICOAGULANT THERAPY Prevention of venous thromboembolism INR 2.0 to 3.0 In patients with heart disease: Atrial fibrillation INR 2.0 to 3.0 Valvular heart disease INR 2.0 to 3.0 Tissue heart valves INR 2.0 to 3.0 Mechanical prosthetic valves INR 2.5 to 3.5 Prevention of recurrent AK INR 2.5 to 3.5 Result Qasim Galvanmail MD LAB BLOOD ORDERABLES Fin al Result [facility] [address] [place] [address] * (ABNORMAL) CBC and differential (01/10/2025 9:15 AM EDT) WBC Count 10.78(H) 3.70 - 10.30 10*3/uL LAB HEMATOLOGY METHOD 01/10/2025 10:27 AM EDT [facility] RBC Count 4.69 4.60 - 6.10 10*6/uL LAB HEMATOLOGY METHOD 01/10/2025 10:27 AM EDT [facility] HGB 14.5 13.7 - 17.5 g/dL LAB HEMATOLOGY METHOD 01/10/2025 10:27 AM EDT [facility] HCT 44.6 40.0 - 51.0 % LAB HEMATOLOGY METHOD 01/10/2025 10:27 AM EDT [facility] Platelet Count 240 155 - 369 10*3/uL LAB HEMATOLOGY METHOD 01/10/2025 10:27 AM EDT [facility] MCV 95 79 - 98 fL LAB HEMATOLOGY METHOD 01/10/2025 10:27 AM EDT [facility] MCH 30.9 26.0 - 32.0 pg LAB HEMATOLOGY METHOD 01/10/2025 10:27 AM EDT [facility] MCHC 32.5 30.7 - 35.5 g/dL LAB HEMATOLOGY METHOD 01/10/2025 10:27 AM EDT [facility] RDW 12.5 11.5 - 14.5 % LAB HEMATOLOGY METHOD 01/10/2025 10:27 AM EDT [facility] MPV 9.8 8.8 - 12.5 fL LAB HEMATOLOGY METHOD 01/10/2025 10:27 AM EDT [facility] nRBC 0.0 <=0.0 per 100 WBCs LAB HEMATOLOGY METHOD 01/10/2025 10:27 AM EDT [facility] Differential Type Automated LAB HEMATOLOGY METHOD 01/10/2025 10:27 AM EDT [facility] Neutrophils % 55 % LAB HEMATOLOGY METHOD 01/10/2025 10:27 AM EDT [facility] Lymphocytes % 30 % LAB HEMATOLOGY METHOD 01/10/2025 10:27 AM EDT [facility] Monocytes % 10 % LAB HEMATOLOGY METHOD 01/10/2025 10:27 AM EDT [facility] Eosinophils % 4 % LAB HEMATOLOGY METHOD 01/10/2025 10:27 AM EDT [facility] Basophils % 1 % LAB HEMATOLOGY METHOD 01/10/2025 10:27 AM EDT [facility] Immature Granulocytes % 0 % LAB HEMATOLOGY METHOD 01/10/2025 10:27 AM EDT [facility] Neutrophils Absolute 5.94 1.60 - 6.10 10*3/uL LAB HEMATOLOGY METHOD 01/10/2025 10:27 AM EDT [facility] Lymphocytes Absolute 3.21 1.20 - 3.90 10*3/uL LAB HEMATOLOGY METHOD 01/10/2025 10:27 AM EDT [facility] Monocytes Absolute 1.12(H) 0.30 - 0.90 10*3/uL LAB HEMATOLOGY METHOD 01/10/2025 10:27 AM EDT [facility] Eosinophils Absolute 0.39 0.00 - 0.50 10*3/uL LAB HEMATOLOGY METHOD 01/10/2025 10:27 AM EDT [facility] Basophils Absolute 0.09 0.00 - 0.10 10*3/uL LAB HEMATOLOGY METHOD 01/10/2025 10:27 AM EDT [facility] Immature Granulocytes Absolute 0.03 0.00 - 0.06 10*3/uL LAB HEMATOLOGY METHOD 01/10/2025 10:27 AM EDT [facility] Blood Venous blood specimen / Unknown Venipuncture / Unknown 01/10/2025 9:15 AM EDT 01/10/2025 9:15 AM EDT [facility] - 01/10/2025 10:27 AM EDT Therapeutic decision making should be based on absolute values, rather than percentages. us Sonja Coello MD LAB BLOOD ORDERABLES Fin al Result [facility] [address] [place] [address] * (ABNORMAL) Comprehensive metabolic panel (01/10/2025 9:15 AM EDT) [facility] Glucose, Plasma 107(H) 74 - 99 mg/dL 01/10/2025 10:49 AM EDT [facility] BUN, Plasma 15 7 - 21 mg/dL 01/10/2025 10:49 AM EDT [facility] Creatinine, Plasma 1.16 0.70 - 1.20 mg/dL 01/10/2025 10:49 AM EDT [facility] BUN/Creatinine Ratio 13 01/10/2025 10:49 AM EDT [facility] Sodium, Plasma 141 136 - 145 mmol/L 01/10/2025 10:49 AM EDT [facility] Potassium, Plasma 4.5 3.6 - 4.9 mmol/L 01/10/2025 10:49 AM EDT [facility] Chloride, Plasma 105 97 - 107 mmol/L 01/10/2025 10:49 AM EDT [facility] CO2, Plasma 24 22 - 29 mmol/L 01/10/2025 10:49 AM EDT [facility] Anion Gap 12 6 - 16 mmol/L 01/10/2025 10:49 AM EDT [facility] Total Calcium, Plasma 10.4(H) 8.9 - 10.2 mg/dL 01/10/2025 10:49 AM EDT [facility] Total Protein 8.2(H) 6.3 - 7.9 g/dL 01/10/2025 10:49 AM EDT [facility] Albumin, Plasma 4.5 3.5 - 5.2 g/dL 01/10/2025 10:49 AM EDT [facility] AST, Plasma 33 10 - 50 U/L 01/10/2025 10:49 AM EDT [facility] ALT, Plasma 33 10 - 50 U/L 01/10/2025 10:49 AM EDT [facility] Alkaline Phosphatase, Plasma 133(H) 40 - 115 U/L 01/10/2025 10:49 AM EDT [facility] Total Bilirubin, Plasma 0.5 0.2 - 1.1 mg/dL 01/10/2025 10:49 AM EDT [facility] eGFRcr 75.8 mL/min/1.7 3m*2 01/10/2025 10:49 AM EDT [facility] Comment:Reported eGFRcr in m L/min/1.73m2 is based the CKD-EPI 2020 equation that does not use a race coefficient. Blood Venous blood specimen / Unknown Venipuncture / Unknown 01/10/2025 9:15 AM EDT 01/10/2025 9:15 AM EDT Sonja Coello MD LAB BLOOD ORDERABLES Fin al Result [facility] [address] [place] [address] * EGD (01/04/2025 12:49 PM EDT) Anatomical [...] Anesthesiologist Lamar Daly, RN Endo Nurse Barbara Varela DO Proceduralist Gilbert Melchor CRNA COOKER TENDER Christina Garcia RN Endo Nurse Preprocedure A history and physical [...] Antibody/Antigen Screen (06/21/2024 11:15 AM EDT) Pathologist [facility] HIV 1 & 2 Antibody/Antigen Screen Non Reactive Non Reactive 06/21/2024 1:22 PM EDT [facility] Comment:Screening for HIV 1 & 2 antibodies, and P24 antigen is NONREACTIVE. No confirmatory testing is required. Blood Venous blood specimen / Unknown Venipuncture / Unknown 06/21/2024 11:15 AM EDT 06/21/2024 11:17 AM EDT us Sonja Coello MD LAB BLOOD ORDERABLES Fin al Result [facility] [address] [place] [address] * Acute Hepatitis Panel (06/21/2024 11:15 AM EDT) Hepatitis B Surf Antigen Negative Negative 06/21/2024 1:54 PM EDT [facility] Hepatitis C Antibody Negative Negative 06/21/2024 1:54 PM EDT [facility] Hepatitis A Antibody IgM Negative Negative 06/21/2024 1:54 PM EDT [facility] Hepatitis B Core Antibody IgM Negative Negative 06/21/2024 1:54 PM EDT [facility] Blood Venous blood specimen / Unknown Venipuncture / Unknown 06/21/2024 11:15 AM EDT 06/21/2024 11:17 AM EDT us Sonja Coello MD LAB BLOOD ORDERABLES Fin al Result [facility] [address] [place] [address] from Last 3 Months or Most Recently Relevant to Health Maintenance Insurance MEDICAID-[place] AET[place] MEDICARE Care Teams Drain Technician Relationship Specialty Start Date End Date Zeynep Schumacher APRN [address] [place] [address] PCP - General 06/21/24
--- OUTSIDE RECORDS SUMMARY | 2025-03-25 14:28 | XMS_ITS | Encounter Summary ---
Author Organization [facility] Address [address] [place] [address] Care Team Providers Care Project Accountant Name Role Phone EndyZeynep schmitt Gm TRUONG Primary Care Provider [phone] Encounter Details Date Type Department Care Team (Late st Contact Info) Description 02/14/[address] [facility] Medicine Specialties [address] [place] [address] [place] [address] Decompensated cirrhosis (CMS/HCC); Alcoholic cirrhosis of liver [...] 04/09/2025 9:00 AM EDT Clinical Support [facility] Medicine Specialties [address] [place] [address] Tiffany Leon, RD [address] [place] [address] 07/18/2025 8:00 AM EST Office Visit [facility] [address] [place] [address] Sheyla Colin MD [address] [place] [address] documented as of this encounter [...] documented as of this encounter Care Teams Project Accountant Relationship Specialty Start Date End Date Zeynep Schumacher APRN [address] [place] [address] PCP - General 06/21/24 documented as of this encounter
--- OUTSIDE RECORDS SUMMARY | 2025-03-25 14:28 | XMS_ITS | Continuity of Care Document ---
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 BLOOD / Unknown Venipuncture / Unknown 02/16/2022 8:58 PM EDT 02/16/2022 9:02 PM EDT Narrative [facility] - 02/16/2022 9:22 PM EDT Ingestion of jose doses of biotin (>5 mg/day) taken within 8 hours of drawing blood sample can interfere with this immunoassay test. Alexandru Chapman MD CHEMISTRY ORDERABLES Final R esult Performing Organization Address City/[facility]/[place] [address] * MAGNESIUM LEVEL (02/16/2022 8:58 PM EDT) Only the most recent of5 resultswithin the time period is included. Pathologist [facility] Magnesium 1.9 1.6 - 2.4 mg/dL 02/16/2022 9:28 PM EDT [facility] Blood VENOUS BLOOD / Unknown Venipuncture / Unknown 02/16/2022 8:58 PM EDT 02/16/2022 9:02 PM EDT Alexandru Chapman MD CHEMISTRY ORDERABLES Final R esult Performing Organization Address City/[facility]/ZIP Co de Phone Number [facility] [address] [place] [address] * CT ANGIOGRAM PULMONARY W CONTRAST (02/16/2022 [...] Isovue 370 IV contrast as recorded in [employer]. 2-D multiplanar reconstructions and 3-D MIP reconstructions [...] using Isovue 370 IVcontrast as recorded in [employer]. 2-D multiplanar reconstructions and 3-D MIP reconstructions [...] the ordering clinician. us Adriana H Thierry CUBE MACHINE TENDER IM CT ORDERABLES Final Resul t * [...] the ordering clinician. us Adriana H Thierry CUBE MACHINE TENDER IMG DIAGNOSTIC IMAGING ORDERA BLES Final Result * (ABNORMAL) CBC (02/16/2022 2:34 PM EDT) Only the most recent of16 resultswithin the time period is included. Pathologist [facility] WBC 11.9(H) 3.7 - 10.3 x10(3)/mcL 02/16/2022 2:42 PM EDT [facility] RBC 4.82 4.60 - 6.10 x10(6)/mcL 02/16/2022 2:42 PM EDT [facility] Hgb 16.4 13.7 - 17.5 g/dL 02/16/2022 2:42 PM EDT [facility] Hct 50.0 40.0 - 51.0 % 02/16/2022 2:42 PM EDT [facility] MCV 103.7(H) 80.0 - 100.0 fL 02/16/2022 2:42 PM EDT [facility] MCH 34.0 26.0 - 34.0 pg 02/16/2022 2:42 PM EDT [facility] MCHC 32.8 30.7 - 35.5 g/dL 02/16/2022 2:42 PM EDT [facility] RDW 13.9 <=14.9 % 02/16/2022 2:42 PM EDT [facility] Platelet 228 155 - 369 x10(3)/mcL 02/16/2022 2:42 PM EDT [facility] MPV 9.6 8.8 - 12.5 fL 02/16/2022 2:42 PM EDT [facility] Blood VENOUS BLOOD / Unknown Venipuncture / Unknown 02/16/2022 2:34 PM EDT 02/16/2022 2:39 PM EDT us Adriana Guadarrama CUBE MACHINE TENDER HEMATOLOGY ORDERABLES Final R esult [facility] [address] [place] [address] * (ABNORMAL) D-DIMER (02/16/2022 2:34 PM EDT) Only the most recent of2 resultswithin the time period is included. Pathologist [facility] D-Dimer 561(H) <=500 ng/mL FEU 02/16/2022 2:58 PM EDT [facility] Comment:This is an automated latex enhanced immunoassay [...] 02/16/2022 2:40 PM EDT us Adriana Guadarrama CUBE MACHINE TENDER HEMATOLOGY ORDERABLES Final R esult [facility] [address] [facility], [place] [address] * (ABNORMAL) HEPATIC FUNCTION PANEL (02/16/2022 2:34 PM EDT) Only the most recent of3 resultswithin the time period is included. Total Protein 8.0 6.4 - 8.3 gm/dL 02/16/2022 2:55 PM EDT [facility] Albumin 4.4 3.5 - 5.2 gm/dL 02/16/2022 2:55 PM EDT [facility] Bili Direct 0.5(H) 0.0 - 0.3 mg/dL 02/16/2022 2:55 PM EDT [facility] Bili Total 1.4 0.1 - 1.4 mg/dL 02/16/2022 2:55 PM EDT [facility] AST 110(H) <=40 U/L 02/16/2022 2:55 PM EDT [facility] ALT 110(H) <=41 U/L 02/16/2022 2:55 PM EDT [facility] Alk Phos 125 40 - 129 U/L 02/16/2022 2:55 PM EDT [facility] Blood VENOUS BLOOD / Unknown Venipuncture / Unknown 02/16/2022 2:34 PM EDT 02/16/2022 2:39 PM EDT us Adriana Guadarrama CUBE MACHINE TENDER CHEMISTRY ORDERABLES Final Re sult Performing Organization Address City/[facility] Co de Phone Number [facility] [address] [place] [address] * POCT EKG (03/20/2019 3:01 PM EDT) Only the most recent of4 resultswithin the time period is included. 03/20/2019 3:01 PM EDT [facility] - 03/20/2019 3:01 PM EDT Normal us Elías Lua MD POINT OF CARE CARDIOLOGY Final R esult Performing Organization Address [facility] Co de Phone Number [facility] * PHOSPHORUS LEVEL (07/31/2018 6:57 AM EST) Only the most recent of2 resultswithin the time period is included. Phosphorus 3.8 2.5 - 4.5 mg/dL 07/31/2018 7:51 AM EST [facility] Blood VENOUS BLOOD / Unknown Venipuncture / Unknown 07/31/2018 6:57 AM EST 07/31/2018 7:12 AM EST us Ab Woodruff MD CHEMISTRY ORDERABLES Noy l Result Performing Organization Address [facility] Co de Phone Number [facility] [address] [place] [address] * INTRAOP AIRWAY PLACEMENT (07/21/2018 11:43 AM EST) Narrative [facility] - 07/21/2018 11:43 AM EST Bozena [...] attempts: 1 Attempt 1 by: ZACH Title: WIRELESS WATCHER us Lolly Leonardo MD [place] ANESTHESIA Final Res ult [facility] [address] [place] [id number] * (ABNORMAL) PT / INR (07/21/2018 5:40 AM EST) Only the most recent of5 resultswithin the time period is included. PT 15.3(H) 9.7 - 12.5 second(s) 07/21/2018 6:48 AM EST [facility] INR 1.35(H) 0.86 - 1.10 no units 07/21/2018 6:48 AM EST [facility] Comment: Level of Therapy Indications Target INR Range Standard Dose Treatment and prophylaxis of venous 2.0 - 3.0 thrombosis, pulmonary embolism High Dose High risk patients with mechanical 2.5 - 3.5 heart valves Blood VENOUS BLOOD / Unknown Venipuncture / Unknown 07/21/2018 5:40 AM EST 07/21/2018 6:21 AM EST Ab Woodruff MD HEMATOLOGY ORDERABLES Fin al Result Performing Organization Address [facility] Phone Number [address] [address] * EXTRA GOLD SST (07/20/2018 7:28 PM EST) Blood VENOUS BLOOD / Unknown Venipuncture / Unknown 07/20/2018 7:28 PM EST 07/20/2018 7:32 PM EST Ab Woodruff MD CHEMISTRY ORDERABLES Noy l Result Performing Organization Address [facility] [place] [address] * EXTRA MINT GREEN LI (07/20/2018 7:28 PM EST) Only the most recent of2 resultswithin the time period is included. Blood VENOUS BLOOD / Unknown Venipuncture / Unknown 07/20/2018 7:28 PM EST 07/20/2018 7:32 PM EST Ab Woodruff MD CHEMISTRY ORDERABLES Noy l Result Performing Organization Address [facility] Phone Number [address] [address] * XR FOOT RIGHT AP LATERAL AND [...] abnormality of the foot. Ab Woodruff MD [facility] DERABLES Final Result * [...] effusion. Joint spaces are maintained. Procedure Note Elijah Diop MD - 07/17/2018 XR ANKLE RIGHT AP LATERAL AND OBLIQUE, 07/17/2018 4:02 PM CLINICAL HISTORY: -painful to touch/swelling COMPARISON: None. PROCEDURE COMMENTS: Routine views per protocol. FINDINGS: The ankle mortise is congruent and there is no fracture. There is nojoint effusion. Joint spaces are maintained. IMPRESSION: No acute osseous abnormality of the ankle. Ab Woodruff MD [facility] Final Result * THYROID STIMULATING HORMONE (07/17/2018 7:06 AM EST) Only the most recent of2 resultswithin the time period is included. TSH 2.590 0.270 - 4.200 mcIU/mL 07/17/2018 8:54 AM EST [facility] Blood VENOUS BLOOD / Unknown Venipuncture / Unknown 07/17/2018 7:06 AM EST 07/17/2018 7:13 AM EST Narr[facility] - 07/17/2018 8:54 AM EST Ingestion of jose doses of biotin (>5 mg/day) taken within 8 hours of drawing blood sample can interfere with this immunoassay test. Ab Woodruff MD CHEMISTRY ORDERABLES Noy l Result Performing Organization Address [facility] de Phone Number [facility] [employer] [address] , [place] [phone] * T4, FREE (THYROXINE) (07/17/2018 7:06 AM EST) Pathologist [facility] Free T4 1.55 0.80 - 2.00 ng/dL 07/17/2018 8:54 AM EST [facility] Blood VENOUS BLOOD / Unknown Venipuncture / Unknown 07/17/2018 7:06 AM EST 07/17/2018 7:13 AM EST Narrative [facility] - 07/17/2018 8:54 AM EST Ingestion of jose doses of biotin (>5 mg/day) taken within 8 hours of drawing blood sample can interfere with this immunoassay test. Ab Woodruff MD CHEMISTRY ORDERABLES Noy l Result Performing Organization Address [facility] Phone Number [facility] , [place] [address] * SCANNED RHYTHM STRIPS (07/16/2018 2:06 PM EST) Anatomical Region Laterality Modality Other 07/16/2018 2:06 PM EST us Unknown Unknown IMG ECG ORDERABLES Final Result * (ABNORMAL) WOUND CULTURE (STAIN INCLUDED) (07/15/2018 11:55 PM EDT) [facility] Culture Positive Growth(A) 07/18/2018 2:40 PM EST [facility] Culture Abundant growth of Enterobacter aerogenes SUSCEPTIBI LITY RESULT 07/18/2018 2:40 PM EST [facility] Comment:Possible ESBL. Stain Moderate Gram positive cocci 07/18/2018 2:40 PM EST [facility] Stain Moderate Gram negative rods 07/18/2018 2:40 PM EST [facility] [employer] Stain Moderate WBCs 07/18/2018 2:40 PM EST [facility] Swab SKIN STRUCTURE OF INGUINAL REGION [...] OR DERABLES Final Result [facility] [address] [facility] [address] [facility], [place] [address] * (ABNORMAL) COMPREHENSIVE METABOLIC PANEL (07/15/2018 4:12 AM EDT) Sodium 136 136 - 145 mmol/L 07/15/2018 5:05 AM EDT [facility] Potassium 4.7 3.5 - 5.0 mmol/L 07/15/2018 5:05 AM EDT [facility] Chloride 102 98 - 107 mmol/L 07/15/2018 5:05 AM EDT [facility] Total CO2 24 22 - 29 mmol/L 07/15/2018 5:05 AM EDT [facility] Anion Gap 10 7 - 16 mmol/L 07/15/2018 5:05 AM EDT [facility] Calcium 9.1 8.6 - 10.2 mg/dL 07/15/2018 5:05 AM EDT [facility] Glucose Lvl 114(H) 74 - 100 mg/dL 07/15/2018 5:05 AM EDT [facility] BUN 17 6 - 20 mg/dL 07/15/2018 5:05 AM EDT [facility] Creatinine 1.15 0.67 - 1.30 mg/dL 07/15/2018 5:05 AM EDT [facility] Albumin 3.0(L) 3.5 - 5.2 gm/dL 07/15/2018 5:05 AM EDT [facility] Total Protein 7.2 6.4 - 8.3 gm/dL 07/15/2018 5:05 AM EDT [facility] Bili Total 0.4 0.1 - 1.4 mg/dL 07/15/2018 5:05 AM EDT [facility] ALT 36 <=41 IU/L 07/15/2018 5:05 AM EDT [facility] AST 28 <=40 IU/L 07/15/2018 5:05 AM EDT [facility] Alk Phos 70 40 - 129 IU/L 07/15/2018 5:05 AM EDT [facility] GFR Afr Am 88 >=60 mL/min/1.7 3 m2 07/15/2018 5:05 AM EDT [facility] GFR Non Afr Am 76 >=60 mL/min/1.7 3 m2 07/15/2018 5:05 AM EDT [facility] Comment: This estimated GFR [...] Woodruff MD CHEMISTRY ORDERABLES Noy l Result [facility] [address] [place] [address] * (ABNORMAL) LIPID SCREEN (07/06/2018 5:27 AM EDT) Cholesterol 187 <=200 mg/dL 07/06/2018 6:21 AM EDT [facility] Comment: < 200 Desirable 200 - 239 Borderline High >= 240 High Triglyceride 163(H) <=150 mg/dL 07/06/2018 6:21 AM EDT [facility] Comment: < 150 Normal 150 - 199 Borderline High 200 - 499 High >= 500 Very High HDL 52 >=40 mg/dL 07/06/2018 6:21 AM EDT [facility] Comment: > 60 Optimal 40 - 60 Acceptable < 40 Low LDL Calculated 102(H) <=100 mg/dL 07/06/2018 6:21 AM EDT [facility] Comment: < 100 Optimal 100 - 129 Near or above optimal 130 - 159 Borderline High 160 - 189 High >= 190 Very High Non-HDL-C Calculated 135(H) <=129 mg/dL 07/06/2018 6:21 AM EDT [facility] Comment: <130 Desirable 130-159 Above Desirable 160-189 Borderline High 190-219 High >= 220 Very High Blood VENOUS BLOOD / Unknown Venipuncture / Unknown 07/06/2018 5:27 AM EDT 07/06/2018 5:47 AM EDT Mohan Tobin MD CHEMISTRY ORDERABLES Final Re sult [facility] [address] [facility], [place] [address] * EC ECHOCARDIOGRAM COMPLETE WITH BUBBLE STUDY [...] and they agreed to proceed. TID # [id number] Benny Casper DO IMG IR ORDERABLES Final Result * INTRAOP AIRWAY PLACEMENT (07/02/2018 10:38 AM EDT) Narrative [facility] - 07/02/2018 10:38 AM EDT [facility] [...] attempts: 1 Attempt 1 by: VIOLETTE Title: WIRELESS WATCHER us Cr Vargas MD [place] ANESTHESIA Edited [facility] [address] [place] [id number] * IR TRANS ART OR VENOUS FOR [...] and they agreed to proceed. TID # [id number] Benny Casper DO IMG IR ORDERABLES Final Result * FIBRINOGEN (07/02/2018 5:00 AM EDT) Only the most recent of2 resultswithin the time period is included. Fibrinogen 238 196 - 447 mg/dL 07/02/2018 6:11 AM EDT [facility] [employer] Blood Venipuncture / Unknown 07/02/2018 5:00 AM EDT 07/02/2018 5:33 AM EDT Benny Casper DO HEMATOLOGY ORDERABLES F inal Result [facility], [address] , [place] [address] * IR TRANSCATH ARTERIAL INFUSION THROMBOLYSIS INITIAL [...] needle. The needle was removed and a 5-Taiwanese sheath was placed over the wire, flushed, [...] without any resistance. The Omni catheter and 5-Taiwanese sheath were removed, and a 6-Taiwanese Terumo Destination sheath was advanced up and [...] hour overnight. The Cragg-Ethel catheter and the 6-Taiwanese sheath were secured in place. The patient [...] back tomorrow for further angiogram. TID # [id number] Benny Casper DO IMG IR ORDERABLES Final [...] needle. The needle was removed and a 5-Taiwanese sheath was placed over the wire, flushed, [...] without any resistance. The Omni catheter and 5-Taiwanese sheath were removed, and a 6-Taiwanese Terumo Destination sheath was advanced up and [...] hour overnight. The Cragg-Ethel catheter and the 6-Taiwanese sheath were secured in place. The patient [...] back tomorrow for further angiogram. TID # [id number] Edsubhash Casper DO IMG IR ORDERABLES Final Result * EXTRA OLSON URINE CX (07/01/2018 2:34 AM EDT) Urine STRUCTURE OF URINARY TRACT PROPER / Unknown 07/01/2018 2:34 AM EDT 07/01/2018 2:43 AM EDT Tarik Sheth MD MICROBIOLOGY - GENERAL ORDERABLE S Final Result Performing Organization Address [facility] de Phone Number [facility] [address] [place] [address] * EXTRA RED/YELLOW UA (07/01/2018 2:34 AM EDT) Urine STRUCTURE OF URINARY TRACT PROPER / Unknown 07/01/2018 2:34 AM EDT 07/01/2018 2:44 AM EDT Tarik Sheth MD URINE ORDERABLES Final Result Performing Organization Address [facility] de Phone Number [facility] [address] [place] [address] * (ABNORMAL) DRUGS OF ABUSE, SCREEN ONLY, URINE (07/01/2018 2:34 AM EDT) 6 AM (Heroin) Absent Absent 07/01/2018 3:01 AM EDT [facility] Amphetamines Absent Absent 07/01/2018 3:01 AM EDT [facility] Barbiturates Absent Absent 07/01/2018 3:01 AM EDT [facility] Benzodiazepines Absent Absent 8 3:01 AM EDT [facility] Buprenorphine Absent Absent 07/01/2018 3:01 AM EDT [facility] Cannabinoid Metabolite Presumptive Pos(A) Absent 07/01/2018 3:01 AM EDT [facility] Cocaine Metabolite Absent Absent 2017 3:01 AM EDT [facility] Methadone and Metabolite Absent Absent 07/01/2018 3:01 AM EDT [facility] Opiate Presumptive Pos(A) Absent 07/01/2018 3:01 AM EDT [facility] Oxycodone Lvl Absent Absent 07/01/2018 3:01 AM EDT [facility] Phencyclidine Absent Absent 07/01/2018 3:01 AM EDT [facility] Creatinine Ur >25.0 mg/dL 07/01/2018 3:01 AM EDT [facility] Comment: Greater than 20: Consistent with valid sample Greater than 2 but less than 20: Possible dilution Less than 2: Questionable valid sample Urine STRUCTURE OF URINARY TRACT PROPER / Unknown 07/01/2018 2:34 AM EDT 07/01/2018 2:42 AM EDT Narrative [facility] - 07/01/2018 3:01 [...] Tarik Sheth MD URINE ORDERABLES Final Result [facility] [address] [place] [address] * BB HISTORY CHECK (07/01/2018 2:33 AM EDT) BB HISTORY CHECK (1) No Previous History 07/01/2018 3:17 AM EDT [facility] Blood VENOUS BLOOD / Unknown Venipuncture / Unknown 07/01/2018 2:33 AM EDT 07/01/2018 2:42 AM EDT Tarik Sheth MD BLOOD BANK ORDERABLES Final Resu lt Performing Organization Address [facility] Co de Phone Number [facility] [address] [place] [address] * ABORH (07/01/2018 2:33 AM EDT) ABORH Int A POS 07/01/2018 3:1 6 AM EDT [facility] Blood VENOUS BLOOD / Unknown Venipuncture / Unknown 07/01/2018 2:33 AM EDT 07/01/2018 2:42 AM EDT Tarik Sheth MD BLOOD BANK ORDERABLES Final Resu lt Performing Organization Address [facility] de Phone Number [facility] [address] [place] [address] * ANTIBODY SCREEN IGG (07/01/2018 2:33 AM EDT) ABSC IgG Int Negative 07/01/2018 3:16 AM EDT [facility] Blood VENOUS BLOOD / Unknown Venipuncture / Unknown 07/01/2018 2:33 AM EDT 07/01/2018 2:42 AM EDT Tarik Sheth MD BLOOD BANK ORDERABLES Final Resu lt Performing Organization Address [facility] de Phone Number [facility] [address] [place] [address] * CT ANGIOGRAM ABDOMINAL AORTA [...] postprocessing done by thereviewing physician on a [employer] workstation, with one or more of the [...] Percent 41 % 07/01/2018 2:04 AM EDT [facility] Lymph Percent 39 % 07/01/2018 2:04 AM EDT [facility] Real Percent 12 % 07/01/2018 2:04 AM EDT [facility] Eos Percent 4 % 07/01/2018 2:04 AM EDT [facility] Baso Percent 2 % 07/01/2018 2:04 AM EDT [facility] Bands Percent 2 <=10 % 07/01/2018 2:04 AM EDT [facility] Neut # 5.5 1.8 - 7.7 x10(3)/mc L 07/01/2018 2:04 AM EDT [facility] Lymph # 5.0(H) 0.6 - 4.8 x10(3)/mc L 07/01/2018 2:04 AM EDT [facility] Real # 1.5(H) 0.0 - 1.3 x10(3)/mc L 07/01/2018 2:04 AM EDT [facility] Eos# 0.5 0.0 - 0.5 x10(3)/mc L 07/01/2018 2:04 AM EDT [facility] Baso # 0.3(H) 0.0 - 0.2 x10(3)/mc L 07/01/2018 2:04 AM EDT [facility] RBC Morph Macrocytic 07/01/2018 2:04 AM EDT [facility] Blood VENOUS BLOOD / Unknown Venipuncture / Unknown 07/01/2018 1:24 AM EDT 07/01/2018 1:40 AM EDT us Tarik Sheth MD HEMATOLOGY ORDERABLES Final Resu lt Performing Organization Address [facility] Co de Phone Number [facility] [address] [place] [address] * CREATINE KINASE (07/01/2018 1:24 AM EDT) CK 178 39 - 308 IU/L 07/01/2018 2:15 AM EDT [facility] Blood VENOUS BLOOD / Unknown Venipuncture / Unknown 07/01/2018 1:24 AM EDT 07/01/2018 1:45 AM EDT us Tarki Sheth MD CHEMISTRY ORDERABLES Final Resul t Performing Organization Address [facility] [facility] de Phone Number [facility] [address] [place] [address] * XR CHEST PA AND [...] Report Accession Number Collected Date/Time Received Date/Time -[id number] 05/28/11 15:16 EDT 05/28/11 15:16 EDT Diagnosis Tonsils, excision: - Chronic lymphoid hyperplasia. ERASMO JANE MD (Electronically signed by) Verified: 05/31/2011 [facility] Clinical Information Chronic tonsillitis. Gross Description Received in formalin labeled with the patient s name and tonsils are undesignated 2 enlarged oval shaped palatine tonsils (each 4.0 x 2.0 x 1.8 cm). The mucosa surfaces are pale rhoades-red and smooth. Serial sections show uniform, rhoades-pink tissue without focal lesions. [employer] sections of each tonsil are submitted in two cassettes./[place] DO /[place] Microscopic Description Microscopic examination is performed and the findings corroborate the diagnosis. [facility] 05/28/2011 3:16 PM EDT us Patrice Mora MD PATHOLOGY ORDERABLES Final Resu lt Performing Organization Address City/[facility] Co de Phone Number [facility] [address] [place] [address] * (ABNORMAL) SMEAR REVIEW (07/21/2010 5:25 AM [...] HEMATOLOGY ORDERABLES Final Result Performing Organization Address City/[facility] Co de Phone Number [facility] [address] [place] [address] * VANCOMYCIN LEVEL TROUGH (07/21/2010 5:25 AM EST) Only the most recent of2 resultswithin the time period is included. Vanco Tr 12.33 7.00 - 15.00 mcg/mL [facility] Blood specimen (specimen) UPPER LIMB STRUCTURE / Unknown 07/21/2010 5:25 AM EST 07/21/2010 5:51 AM EST Narrative [facility] - 07/21/2010 6:48 AM EST Draw before dose of medication. 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
--- OUTSIDE RECORDS SUMMARY | 2025-03-25 14:28 | XMS_ITS | Encounter Summary ---
Author Organization [facility] Address [address] [place] [address] Care Team Providers Care Cutter Operator Name Role Phone EndyZeynep schmitt Gm TRUONG Primary Care Provider [phone] Encounter Details Date Type Department Care Team (Late st Contact Info) Description 02/19/2025 Results Follow-Up [facility] Medicine Specialties [address], [address] [place] [address] Monica Bee MD [address] [place] [address] Social History Tobacco Use Types [...] 04/09/2025 9:00 AM EDT Clinical Support [facility] Medicine Specialties [address], [address] [place] [address] Tiffany Leon, KALEB [address] [facility] [address] [place] [address] 07/18/2025 8:00 AM EST Office Visit [facility] [address], [address] [place] [address] Sheyla Colin MD [address] [place] [address] documented as of this encounter [...] documented as of this encounter Care Teams Cutter Operator Relationship Specialty Start Date End Date Zeynep Schumacher APRN [address] [place] [address] PCP - General 06/21/24 documented as of this encounter
--- OUTSIDE RECORDS SUMMARY | 2025-03-25 14:28 | XMS_ITS | Encounter Summary ---
Author Organization [facility] Address [address] [place] [address] Care Team Providers Care Sql Etl Developer Name Role Phone EndyZeynep Gm TRUONG Primary Care Provider [phone] Encounter Details Date Type Department Care Team (Late Contact Info) Description 02/19/2025 Orders Only [facility] Medicine Specialties [address], [address] [place] [address] Monica Bee MD [address] [place] [address] Decompensated cirrhosis (CMS/HCC) (Primary Dx); [...] Description 04/09/2025 9:00 AM EDT Clinical Support [facility] Medicine Specialties [address] [facility]nd [place] [address] Tiffany Leon, RD [address] [place] [address] 07/18/2025 8:00 AM EST Office Visit [place] [facility] [address], [address] [place] [address] Sheyla Colin MD [address] [place] [address] documented as of this encounter [...] documented as of this encounter Care Teams Sql Etl Developer Relationship Specialty Start Date End Date Zeynep Schumacher APRN [address] [place] [address] PCP - General 06/21/24 documented as of this encounter
--- OUTSIDE RECORDS SUMMARY | 2025-03-25 14:28 | XMS_ITS | Encounter Summary ---
Author Organization [facility] Address [address] [place] [address] Care Team Providers Care Machine Splitter Name Role Phone EndyZeynep schmitt Gm TRUONG Primary Care Provider [phone] Encounter Details Date Type Department Care Team (Late st Contact Info) Description 01/10/2025 Results Follow-Up [facility] Medicine Specialties [address] [place] [address] Leonardo Bautista MD [address] [place] [address] Social History Tobacco Use Types [...] Description 04/09/2025 9:00 AM EDT Clinical Support [facility] Medicine Specialties [address] [place] [address] Tiffany Leon, KALEB [address] [place] [address] 07/18/2025 8:00 AM EST [facility] [address], [address] [place] [address] Sheyla Colin MD [address] [place] [address] documented as of this encounter [...] documented as of this encounter Care Teams Machine Splitter Relationship Specialty Start Date End Date Zeynep Schumacher APRN [address] [place] [address] PCP - General 06/21/24 documented as of this encounter
--- OUTSIDE RECORDS SUMMARY | 2025-03-25 14:28 | XMS_ITS | Encounter Summary ---
Author Organization [facility] Address [address] [place] [address] Care Team Providers Care Reprint Sorter Name Role Phone EndyZeynep schmitt Gm TRUONG Primary Care Provider [phone] Reason for Visit * Reason Onset Date Comments Prior-authorization/insuranc e Verification 02/06/2025 GLORIA Mosqueda packetsKEY: [id number] Encounter Details Date Type Department Care Team (Late st Contact Info) Description 02/06/2025 Telephone [facility] [address] [place] [address] Wisam Martinez, RN [facility] Prior-authorization/in surance Verification (GLORIA MORAN/Gianluca packets/GUTIERREZ: [id number]) Social History Tobacco Use Types Packs/Day Years [...] 10:39 AM EDT GLORIA Hough packets GUTIERREZ: [id number] documented in this encounter Plan of Treatment Upcoming Encounters Date Type Department Care Team (Late st Contact Info) Description 04/09/2025 9:00 AM EDT Clinical Support [facility] Medicine Specialties [address], [address] [place] [address] Tiffany Leon, RD [address] [place] [address] 07/18/2025 8:00 AM EST Office Visit [facility] Medicine Specialties [address], [address] [place] [address] Sheyla Colin MD [address] [place] [address] documented as of this encounter [...] documented as of this encounter Care Teams Reprint Sorter Relationship Specialty Start Date End Date Zeynep Schumacher APRN [facility] [place] [address] PCP - General 06/21/24 documented as of this encounter
--- NOTE | 2025-03-25 14:29 | XR_ITS ---
FINAL REPORT CLINICAL HISTORY: Foot pain/ Bunion COMPARISON: None FINDINGS: Three views of the right foot show no evidence of acute displaced fracture or dislocation of the visualized bony architecture. There are scattered degenerative changes. 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 IMPRESSION: Degenerative/chronic changes without acute findings. Reviewed, Interpreted and Dictated by Levi Fontaine MD Transcribed by Melisa Garcia Authenticated and [facility]
== END 2025-03-25 23:59 | disposition home or self-care (01) ==
LOC: RAD 14:25
PROVIDERS: PCP Nurse Practitioner; Visit Provider Podiatrist
DX: M19.071 Primary osteoarthritis, right ankle and foot (principal); M21.621 Bunionette of right foot
CPT/HCPCS: 73630

== ENCOUNTER 2025-04-02 13:06 | Outpatient (CLI) | payer MEDICARE, MEDICAID, SELFPAY ==
--- NOTE | 2025-04-02 13:00 | US_ITS ---
FINAL REPORT CLINICAL HISTORY: Signs involving the Circulatory System, Right leg pain , History of compartment syndrome with fasciotomy 5 years ago FINDINGS: LOWER EXTREMITY SEGMENTAL PRESSURE MEASUREMENTS Pressure indices are as follows: RIGHT LOWER EXTREMITY: Lower thigh: 1.1 Calf: 1.2 Ankle, posterior tibial artery: 1.0 Ankle, dorsalis pedis: 1.0 Toe: 0.87 Comments: BARBI is 1.0 LEFT LOWER EXTREMITY: Lower thigh: 1.1 Calf: 1.0 Ankle, posterior tibial artery: 1.2 Ankle, dorsalis pedis: 1.1 Toe: 0.85 Comments: BARBI is 1.2 IMPRESSION: Normal pressure indices. Reviewed, Interpreted and Dictated by Levi Fontaine MD Transcribed by Marianna Brunson Authenticated and [facility]
--- OUTSIDE RECORDS SUMMARY | 2025-04-02 13:10 | XMS_ITS | Encounter Summary ---
Author Organization [facility] Address [address] [place] [address] Care Team Providers Care Practice Administrator Name Role Phone EndyZeynep schmitt Gm TRUONG Primary Care Provider [phone] Encounter Details Date Type Department Care Team (Late st Contact Info) Description 02/14/2025 Orders Only [facility] Medicine Specialties [address] [place] [address] [place] [address] Decompensated cirrhosis (CMS/HCC); Alcoholic cirrhosis of liver [...] Support [facility] Medicine Specialties [address], [address] [place] [address] Tiffany Leon, RD [address] [place] [address] 07/18/2025 8:00 AM EST Office Visit [place] [facility] [address], [address] [place] [address] Sheyla Colin MD [address] [place] [address] documented as of this encounter [...] documented as of this encounter Care Teams Practice Administrator Relationship Specialty Start Date End Date Zeynep Schumacher APRN [address] [place] [address] PCP - General 06/21/24 documented as of this encounter
--- OUTSIDE RECORDS SUMMARY | 2025-04-02 13:10 | XMS_ITS | Encounter Summary ---
Author Organization [facility] Address [address] [place] [address] Care Team Providers Care Last Repairer Helper Name Role Phone EndyZeynep schmitt Gm TRUONG Primary Care Provider [phone] Encounter Details Date Type Department Care Team (Late st Contact Info) Description 01/10/2025 Results Follow-Up [facility] Medicine Specialties [address] [place] [address] Leonardo Bautista MD [address] [place] [address] Social History Tobacco Use Types [...] Description 04/09/2025 9:00 AM EDT Clinical Support [facility] Medicine Specialties [address] [place] [address] Tiffany Leon, KALEB [address] [place] [address] 07/18/2025 8:00 AM EST Office Visit [facility] [facility] Medicine Specialties [address], [address] [place] [address] Sheyla Colin MD [address] [place] [address] documented as of this encounter [...] documented as of this encounter Care Teams Last Repairer Helper Relationship Specialty Start Date End Date Zeynep Schumacher APRN [address] [place] [address] PCP - General 06/21/24 documented as of this encounter
--- OUTSIDE RECORDS SUMMARY | 2025-04-02 13:10 | XMS_ITS | Encounter Summary ---
Author Organization [facility] Address [address] [place] [address] Care Team Providers Care Plug Drill Operator Name Role Phone EndyZeynep schmitt Gm TRUONG Primary Care Provider [phone] Encounter Details Date Type Department Care Team (Late st Contact Info) Description 02/19/2025 Results Follow-Up [facility] Medicine Specialties [address] [place] [address] Monica Bee MD [address] [place] [address] Social History Tobacco Use Types [...] Description 04/09/2025 9:00 AM EDT Clinical Support [facility] Medicine Specialties [address] [place] [address] Tiffany Leon, KALEB [address] [facility] [address] [place] [address] 07/18/2025 8:00 AM EST Office Visit [place] [facility] Medicine Specialties [address] [place] [address] Sheyla Colin MD [address] [place] [address] documented as of this encounter [...] documented as of this encounter Care Teams Plug Drill Operator Relationship Specialty Start Date End Date Zeynep Schumacher APRN [address] [place] [address] PCP - General 06/21/24 documented as of this encounter
--- OUTSIDE RECORDS SUMMARY | 2025-04-02 13:10 | XMS_ITS | Continuity of Care Document ---
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 https://askmayoexpert.[facility].org/topic/clinical-answers/[email or web address]/[email or web address] [id number] Blood VENOUS BLOOD / Unknown Venipuncture / Unknown 02/16/2022 8:58 PM EDT 02/16/2022 9:02 PM EDT Narrative [facility] - 02/16/2022 9:22 PM EDT Ingestion of jose doses of biotin (>5 mg/day) taken within 8 hours of drawing blood sample can interfere with this immunoassay test. Alexandru Chapman MD CHEMISTRY ORDERABLES Final R esult Performing Organization Address City/[facility]/[place] [address] * MAGNESIUM LEVEL (02/16/2022 8:58 PM EDT) Only the most recent of5 resultswithin the time period is included. Pathologist [facility] Magnesium 1.9 1.6 - 2.4 mg/dL 02/16/2022 9:28 PM EDT [facility] Blood VENOUS BLOOD / Unknown Venipuncture / Unknown 02/16/2022 8:58 PM EDT 02/16/2022 9:02 PM EDT Alexandru Chapman MD CHEMISTRY ORDERABLES Final R esult Performing Organization Address City/[facility]/ZIP Co de Phone Number [facility] [address] [place] [address] * CT ANGIOGRAM PULMONARY W CONTRAST (02/16/2022 [...] Isovue 370 IV contrast as recorded in [employer]. 2-D multiplanar reconstructions and 3-D MIP reconstructions [...] using Isovue 370 IVcontrast as recorded in [employer]. 2-D multiplanar reconstructions and 3-D MIP reconstructions [...] the ordering clinician. us Adriana H Thierry CREW BOAT OPERATOR IM CT ORDERABLES Final Resul t * [...] the ordering clinician. us Adriana H Thierry CREW BOAT OPERATOR IMG DIAGNOSTIC IMAGING ORDERA BLES Final Result * (ABNORMAL) CBC (02/16/2022 2:34 PM EDT) Only the most recent of16 resultswithin the time period is included. Pathologist [facility] WBC 11.9(H) 3.7 - 10.3 x10(3)/mcL 02/16/2022 2:42 PM EDT [facility] RBC 4.82 4.60 - 6.10 x10(6)/mcL 02/16/2022 2:42 PM EDT [facility] Hgb 16.4 13.7 - 17.5 g/dL 02/16/2022 2:42 PM EDT [facility] Hct 50.0 40.0 - 51.0 % 02/16/2022 2:42 PM EDT [facility] MCV 103.7(H) 80.0 - 100.0 fL 02/16/2022 2:42 PM EDT [facility] MCH 34.0 26.0 - 34.0 pg 02/16/2022 2:42 PM EDT [facility] MCHC 32.8 30.7 - 35.5 g/dL 02/16/2022 2:42 PM EDT [facility] RDW 13.9 <=14.9 % 02/16/2022 2:42 PM EDT [facility] Platelet 228 155 - 369 x10(3)/mcL 02/16/2022 2:42 PM EDT [facility] MPV 9.6 8.8 - 12.5 fL 02/16/2022 2:42 PM EDT [facility] Blood VENOUS BLOOD / Unknown Venipuncture / Unknown 02/16/2022 2:34 PM EDT 02/16/2022 2:39 PM EDT us Adriana Guadarrama CREW BOAT OPERATOR HEMATOLOGY ORDERABLES Final R esult [facility] [address] [place] [address] * (ABNORMAL) D-DIMER (02/16/2022 2:34 PM EDT) Only the most recent of2 resultswithin the time period is included. Pathologist [facility] D-Dimer 561(H) <=500 ng/mL FEU 02/16/2022 2:58 PM EDT [facility] Comment:This is an automated latex enhanced immunoassay [...] 02/16/2022 2:40 PM EDT us Adriana Guadarrama CREW BOAT OPERATOR HEMATOLOGY ORDERABLES Final R esult [facility] [address] [facility] [address], [place] [address] * (ABNORMAL) HEPATIC FUNCTION PANEL (02/16/2022 2:34 PM EDT) Only the most recent of3 resultswithin the time period is included. Total Protein 8.0 6.4 - 8.3 gm/dL 02/16/2022 2:55 PM EDT [facility] Albumin 4.4 3.5 - 5.2 gm/dL 02/16/2022 2:55 PM EDT [facility] Bili Direct 0.5(H) 0.0 - 0.3 mg/dL 02/16/2022 2:55 PM EDT [facility] Bili Total 1.4 0.1 - 1.4 mg/dL 02/16/2022 2:55 PM EDT [facility] AST 110(H) <=40 U/L 02/16/2022 2:55 PM EDT [facility] ALT 110(H) <=41 U/L 02/16/2022 2:55 PM EDT [facility] Alk Phos 125 40 - 129 U/L 02/16/2022 2:55 PM EDT [facility] Blood VENOUS BLOOD / Unknown Venipuncture / Unknown 02/16/2022 2:34 PM EDT 02/16/2022 2:39 PM EDT us Adriana Guadarrama CREW BOAT OPERATOR CHEMISTRY ORDERABLES Final Re sult Performing Organization Address City/[facility] Co de Phone Number [facility] [address] [place] [address] * POCT EKG (03/20/2019 3:01 PM EDT) Only the most recent of4 resultswithin the time period is included. 03/20/2019 3:01 PM EDT [facility] - 03/20/2019 3:01 PM EDT Normal us Elías Lua MD POINT OF CARE CARDIOLOGY Final R esult Performing Organization Address [facility] Co de Phone Number [facility] * PHOSPHORUS LEVEL (07/31/2018 6:57 AM EST) Only the most recent of2 resultswithin the time period is included. Phosphorus 3.8 2.5 - 4.5 mg/dL 07/31/2018 7:51 AM EST [facility] Blood VENOUS BLOOD / Unknown Venipuncture / Unknown 07/31/2018 6:57 AM EST 07/31/2018 7:12 AM EST us Ab Woodruff MD CHEMISTRY ORDERABLES Noy l Result Performing Organization Address [facility] Co de Phone Number [facility] [address] [place] [address] * INTRAOP AIRWAY PLACEMENT (07/21/2018 11:43 AM EST) Narrative [facility] - 07/21/2018 11:43 AM EST [...] attempts: 1 Attempt 1 by: ZACH Title: CHILD WELFARE MANAGER us Lolly Leonardo MD [place] ANESTHESIA Final Res ult [facility] [address] [place] [id number] * (ABNORMAL) PT / INR (07/21/2018 5:40 AM EST) Only the most recent of5 resultswithin the time period is included. PT 15.3(H) 9.7 - 12.5 second(s) 07/21/2018 6:48 AM EST [facility] INR 1.35(H) 0.86 - 1.10 no units 07/21/2018 6:48 AM EST [facility] Comment: Level of [...] ORDERABLES Fin al Result Performing Organization Address [facility] Phone Number [address] [address] * EXTRA GOLD SST (07/20/2018 7:28 PM EST) Blood VENOUS BLOOD / Unknown Venipuncture / Unknown 07/20/2018 7:28 PM EST 07/20/2018 7:32 PM EST Ab Woodruff MD CHEMISTRY ORDERABLES Noy l Result Performing Organization Address [facility] [place] [address] * EXTRA MINT GREEN LI (07/20/2018 7:28 PM EST) Only the most recent of2 resultswithin the time period is included. Blood VENOUS BLOOD / Unknown Venipuncture / Unknown 07/20/2018 7:28 PM EST 07/20/2018 7:32 PM EST Ab Woodruff MD CHEMISTRY ORDERABLES Noy l Result Performing Organization Address [facility] Phone Number [address] [address] * XR FOOT RIGHT AP LATERAL AND [...] abnormality of the foot. Ab Woodruff MD [facility] OR DERABLES Final Result * [...] abnormality of the ankle. Ab Woodruff MD [facility]ER[facility] Final Result * THYROID STIMULATING HORMONE (07/17/2018 7:06 AM EST) Only the most recent of2 resultswithin the time period is included. TSH 2.590 0.270 - 4.200 mcIU/mL 07/17/2018 8:54 AM EST [facility] [employer] Blood VENOUS BLOOD / Unknown Venipuncture / Unknown 07/17/2018 7:06 AM EST 07/17/2018 7:13 AM EST Narrative [facility] [facility] - 07/17/2018 8:54 AM EST Ingestion of jose doses of biotin (>5 mg/day) taken within 8 hours of drawing blood sample can interfere with this immunoassay test. Ab Woodruff MD CHEMISTRY ORDERABLES Noy l Result Performing Organization Address [facility] de Phone Number [facility] [employer] [address] , [place] [id number] * T4, FREE (THYROXINE) (07/17/2018 7:06 AM EST) Pathologist [facility] Free T4 1.55 0.80 - 2.00 ng/dL 07/17/2018 8:54 AM EST [facility] Blood VENOUS BLOOD / Unknown Venipuncture / Unknown 07/17/2018 7:06 AM EST 07/17/2018 7:13 AM EST Narrative [facility] [facility] - 07/17/2018 8:54 AM EST Ingestion of jose doses of biotin (>5 mg/day) taken within 8 hours of drawing blood sample can interfere with this immunoassay test. Ab Woodruff MD CHEMISTRY ORDERABLES Noy l Result Performing Organization Address [facility] Phone Number [facility] [employer] , [place] [address] * SCANNED RHYTHM STRIPS (07/16/2018 2:06 PM EST) Anatomical Region Laterality Modality Other 07/16/2018 2:06 PM EST us Unknown Unknown IMG ECG ORDERABLES Final Result * (ABNORMAL) WOUND CULTURE (STAIN INCLUDED) (07/15/2018 11:55 PM EDT) [facility] Culture Positive Growth(A) 07/18/2018 2:40 PM EST [facility] Culture Abundant growth of Enterobacter aerogenes SUSCEPTIBI LITY RESULT 07/18/2018 2:40 PM EST [facility] [facility] Comment:Possible ESBL. Stain Moderate Gram positive cocci 07/18/2018 2:40 PM EST [facility] Stain Moderate Gram negative rods 07/18/2018 2:40 PM EST [facility], [employer] Stain Moderate WBCs 07/18/2018 2:40 PM EST [facility] Swab SKIN STRUCTURE OF INGUINAL REGION / [...] OR DERABLES Final Result [facility] [address] [facility], [place] [address] * (ABNORMAL) COMPREHENSIVE METABOLIC PANEL (07/15/2018 4:12 AM EDT) Sodium 136 136 - 145 mmol/L 07/15/2018 5:05 AM EDT [facility] Potassium 4.7 3.5 - 5.0 mmol/L 07/15/2018 5:05 AM EDT [facility] Chloride 102 98 - 107 mmol/L 07/15/2018 5:05 AM EDT [facility] Total CO2 24 22 - 29 mmol/L 07/15/2018 5:05 AM EDT [facility] Anion Gap 10 7 - 16 mmol/L 07/15/2018 5:05 AM EDT [facility] Calcium 9.1 8.6 - 10.2 mg/dL 07/15/2018 5:05 AM EDT [facility] Glucose Lvl 114(H) 74 - 100 mg/dL 07/15/2018 5:05 AM EDT [facility] BUN 17 6 - 20 mg/dL 07/15/2018 5:05 AM EDT [facility] Creatinine 1.15 0.67 - 1.30 mg/dL 07/15/2018 5:05 AM EDT [facility] Albumin 3.0(L) 3.5 - 5.2 gm/dL 07/15/2018 5:05 AM EDT [facility] Total Protein 7.2 6.4 - 8.3 gm/dL 07/15/2018 5:05 AM EDT [facility] Bili Total 0.4 0.1 - 1.4 mg/dL 07/15/2018 5:05 AM EDT [facility] ALT 36 <=41 IU/L 07/15/2018 5:05 AM EDT [facility] AST 28 <=40 IU/L 07/15/2018 5:05 AM EDT [facility] Alk Phos 70 40 - 129 IU/L 07/15/2018 5:05 AM EDT [facility] GFR Afr Am 88 >=60 mL/min/1.7 3 m2 07/15/2018 5:05 AM EDT [facility] GFR Non Afr Am 76 >=60 mL/min/1.7 3 m2 07/15/2018 5:05 AM EDT [facility] Comment: This estimated [...] Woodruff MD CHEMISTRY ORDERABLES Noy l Result [facility] [address] [place] [address] * (ABNORMAL) LIPID SCREEN (07/06/2018 5:27 AM EDT) Cholesterol 187 <=200 mg/dL 07/06/2018 6:21 AM EDT [facility] Comment: < 200 Desirable 200 - 239 Borderline High >= 240 High Triglyceride 163(H) <=150 mg/dL 07/06/2018 6:21 AM EDT [facility] Comment: < 150 Normal 150 - 199 Borderline High 200 - 499 High >= 500 Very High HDL 52 >=40 mg/dL 07/06/2018 6:21 AM EDT [facility] Comment: > 60 Optimal 40 - 60 Acceptable < 40 Low LDL Calculated 102(H) <=100 mg/dL 07/06/2018 6:21 AM EDT [facility] Comment: < 100 Optimal 100 - 129 Near or above optimal 130 - 159 Borderline High 160 - 189 High >= 190 Very High Non-HDL-C Calculated 135(H) <=129 mg/dL 07/06/2018 6:21 AM EDT [facility] Comment: <130 Desirable 130-159 Above Desirable 160-189 Borderline High 190-219 High >= 220 Very High Blood VENOUS BLOOD / Unknown Venipuncture / Unknown 07/06/2018 5:27 AM EDT 07/06/2018 5:47 AM EDT Mohan Tobin MD CHEMISTRY ORDERABLES Final Re sult [facility] [address] [facility] [address], [place] [address] * EC ECHOCARDIOGRAM COMPLETE WITH BUBBLE STUDY [...] and they agreed to proceed. TID # [id number] Benny Casper DO IMG IR ORDERABLES Final Result * INTRAOP AIRWAY PLACEMENT (07/02/2018 10:38 AM EDT) Narrative [facility] - 07/02/2018 10:38 AM EDT LnigStanley jamisonGLENN 07/02/2018 10:45 AM Intraop Airway Placement: [...] attempts: 1 Attempt 1 by: [email or web address] Title: CHILD WELFARE MANAGER us Cr Vargas MD [place] ANESTHESIA Edited [facility] [address] [place] [id number] * IR TRANS ART OR VENOUS FOR [...] and they agreed to proceed. TID # [id number] Benny Casper DO IMG IR ORDERABLES Final Result * FIBRINOGEN (07/02/2018 5:00 AM EDT) Only the most recent of2 resultswithin the time period is included. Fibrinogen 238 196 - 447 mg/dL 07/02/2018 6:11 AM EDT [facility] [employer] [employer] Blood Venipuncture / Unknown 07/02/2018 5:00 AM EDT 07/02/2018 5:33 AM EDT Benny Casper DO HEMATOLOGY ORDERABLES F inal Result [facility] [employer], [address] , [place] [address] * IR TRANSCATH ARTERIAL INFUSION THROMBOLYSIS INITIAL [...] needle. The needle was removed and a 5-Montserratian sheath was placed over the wire, flushed, [...] without any resistance. The Omni catheter and 5-Montserratian sheath were removed, and a 6-Montserratian Terumo Destination sheath was advanced up and [...] hour overnight. The Cragg-Ethel catheter and the 6-Montserratian sheath were secured in place. The patient [...] back tomorrow for further angiogram. TID # [id number] Benny Casper DO IMG IR ORDERABLES Final [...] needle. The needle was removed and a 5-Montserratian sheath was placed over the wire, flushed, [...] without any resistance. The Omni catheter and 5-Montserratian sheath were removed, and a 6-Montserratian Terumo Destination sheath was advanced up and [...] hour overnight. The Cragg-Ethel catheter and the 6-Montserratian sheath were secured in place. The patient [...] back tomorrow for further angiogram. TID # [id number] Edsubhash Casper DO IMG IR ORDERABLES Final Result * EXTRA OLSON URINE CX (07/01/2018 2:34 AM EDT) Urine STRUCTURE OF URINARY TRACT PROPER / Unknown 07/01/2018 2:34 AM EDT 07/01/2018 2:43 AM EDT Tarik Sheth MD MICROBIOLOGY - GENERAL ORDERABLE S Final Result Performing Organization Address [facility] de Phone Number [facility] [address] [place] [address] * EXTRA RED/YELLOW UA (07/01/2018 2:34 AM EDT) Urine STRUCTURE OF URINARY TRACT PROPER / Unknown 07/01/2018 2:34 AM EDT 07/01/2018 2:44 AM EDT Tarik Sheth MD URINE ORDERABLES Final Result Performing Organization Address [facility] de Phone Number [facility] [address] [place] [address] * (ABNORMAL) DRUGS OF ABUSE, SCREEN ONLY, URINE (07/01/2018 2:34 AM EDT) 6 AM (Heroin) Absent Absent 07/01/2018 3:01 AM EDT [facility] Amphetamines Absent Absent 07/01/2018 3:01 AM EDT [facility] Barbiturates Absent Absent 07/01/2018 3:01 AM EDT [facility] Benzodiazepines Absent Absent 8 3:01 AM EDT [facility] Buprenorphine Absent Absent 07/01/2018 3:01 AM EDT [facility] Cannabinoid Metabolite Presumptive Pos(A) Absent 07/01/2018 3:01 AM EDT [facility] Cocaine Metabolite Absent Absent 2017 3:01 AM EDT [facility] Methadone and Metabolite Absent Absent 07/01/2018 3:01 AM EDT [facility] Opiate Presumptive Pos(A) Absent 07/01/2018 3:01 AM EDT [facility] Oxycodone Lvl Absent Absent 07/01/2018 3:01 AM EDT [facility] Phencyclidine Absent Absent 07/01/2018 3:01 AM EDT [facility] Creatinine Ur >25.0 mg/dL 07/01/2018 3:01 AM EDT [facility] Comment: Greater than 20: Consistent with valid sample Greater than 2 but less than 20: Possible dilution Less than 2: Questionable valid sample Urine STRUCTURE OF URINARY TRACT PROPER / Unknown 07/01/2018 2:34 AM EDT 07/01/2018 2:42 AM EDT Narrative [facility] - 07/01/2018 3:01 AM [...] Tarik Sheth MD URINE ORDERABLES Final Result [facility] [address] [place] [address] * BB HISTORY CHECK (07/01/2018 2:33 AM EDT) BB HISTORY CHECK (1) No Previous History 07/01/2018 3:17 AM EDT [facility] Blood VENOUS BLOOD / Unknown Venipuncture / Unknown 07/01/2018 2:33 AM EDT 07/01/2018 2:42 AM EDT Tarik Sheth MD BLOOD BANK ORDERABLES Final Resu lt Performing Organization Address [facility] Co de Phone Number [facility] [address] [place] [address] * ABORH (07/01/2018 2:33 AM EDT) ABORH Int A POS 07/01/2018 3:1 6 AM EDT [facility] Blood VENOUS BLOOD / Unknown Venipuncture / Unknown 07/01/2018 2:33 AM EDT 07/01/2018 2:42 AM EDT Tarik Sheth MD BLOOD BANK ORDERABLES Final Resu lt Performing Organization Address [facility] de Phone Number [facility] [address] [place] [address] * ANTIBODY SCREEN IGG (07/01/2018 2:33 AM EDT) ABSC IgG Int Negative 07/01/2018 3:16 AM EDT [facility] Blood VENOUS BLOOD / Unknown Venipuncture / Unknown 07/01/2018 2:33 AM EDT 07/01/2018 2:42 AM EDT Tarik Sheth MD BLOOD BANK ORDERABLES Final Resu lt Performing Organization Address [facility] de Phone Number [facility] [address] [place] [address] * CT ANGIOGRAM ABDOMINAL AORTA [...] postprocessing done by thereviewing physician on a [employer] workstation, with one or more of the [...] Percent 41 % 07/01/2018 2:04 AM EDT [facility] Lymph Percent 39 % 07/01/2018 2:04 AM EDT [facility] [place] Percent 12 % 07/01/2018 2:04 AM EDT [facility] Eos Percent 4 % 07/01/2018 2:04 AM EDT [facility] Baso Percent 2 % 07/01/2018 2:04 AM EDT [facility] Bands Percent 2 <=10 % 07/01/2018 2:04 AM EDT [facility] Neut # 5.5 1.8 - 7.7 x10(3)/mc L 07/01/2018 2:04 AM EDT [facility] Lymph # 5.0(H) 0.6 - 4.8 x10(3)/mc L 07/01/2018 2:04 AM EDT [facility] [place] # 1.5(H) 0.0 - 1.3 x10(3)/mc L 07/01/2018 2:04 AM EDT [facility] Eos# 0.5 0.0 - 0.5 x10(3)/mc L 07/01/2018 2:04 AM EDT [facility] Baso # 0.3(H) 0.0 - 0.2 x10(3)/mc L 07/01/2018 2:04 AM EDT [facility] RBC Morph Macrocytic 07/01/2018 2:04 AM EDT [facility] Blood VENOUS BLOOD / Unknown Venipuncture / Unknown 07/01/2018 1:24 AM EDT 07/01/2018 1:40 AM EDT us Tarik Sheth MD HEMATOLOGY ORDERABLES Final Resu lt Performing Organization Address [facility] Co de Phone Number [facility] [address] [place] [address] * CREATINE KINASE (07/01/2018 1:24 AM EDT) CK 178 39 - 308 IU/L 07/01/2018 2:15 AM EDT [facility] Blood VENOUS BLOOD / Unknown Venipuncture / Unknown 07/01/2018 1:24 AM EDT 07/01/2018 1:45 AM EDT us Tarik Sheth MD CHEMISTRY ORDERABLES Final Resul t Performing Organization Address [facility] de Phone Number [facility] [address] [place] [address] * XR CHEST PA AND [...] Report Accession Number Collected Date/Time Received Date/Time -[id number] 05/28/11 15:16 EDT 05/28/11 15:16 EDT Diagnosis [...] show uniform, rhoades-pink tissue without focal lesions. Marketing Secretary sections of each tonsil are submitted in two cassettes./[place] DO /[place] Microscopic Description Microscopic examination is performed and the findings corroborate the diagnosis. [facility] 05/28/2011 3:16 PM EDT us Patrice Mora MD PATHOLOGY ORDERABLES Final Resu lt Performing Organization Address City/[facility] Co de Phone Number [facility] [address] [place] [address] * (ABNORMAL) SMEAR REVIEW (07/21/2010 5:25 AM [...] HEMATOLOGY ORDERABLES Final Result Performing Organization Address City/[facility] Co de Phone Number [facility] [address] [place] [address] * VANCOMYCIN LEVEL TROUGH (07/21/2010 5:25 AM EST) Only the most recent of2 resultswithin the time period is included. Vanco Tr 12.33 7.00 - 15.00 mcg/mL [facility] Blood specimen (specimen) UPPER LIMB STRUCTURE / Unknown 07/21/2010 5:25 AM EST 07/21/2010 5:51 AM EST Narrative [facility] - 07/21/2010 6:48 AM EST Draw before dose of medication. us Lizandro Mcclain MD CHEMISTRY ORDERABLES Final Resul t [facility] [address] [place] [address] * CT SOFT TISSUE NECK W CONTRAST [...] (ABNORMAL) MONONUCLEOSIS SCREEN (07/17/2010 4:15 AM EDT) [place] Screen Positive(A ) Negative [facility] Blood specimen (specimen) UPPER LIMB STRUCTURE / Unknown 07/17/2010 4:15 AM EDT 07/17/2010 4:47 AM EDT us Louise Zuniga MD CHEMISTRY ORDERABLES Final Res ult [facility] [address] [place] [address] Visit Diagnoses Diagnosis Start Date Pharyngitis Acute [...] dehydrogenase (LDH) 02/16/2022 Coronary artery disease involving [place] coronary artery of [place] heart with unstable angina pectoris (HCC) 02/16/2022 Wide-complex tachycardia Paroxysmal ventricular tachycardia 02/16/2022 S/P catheter ablation of slow pathway Other postprocedural status 02/16/2022 Care Teams Dental Equipment Mechanic Relationship Specialty Start Date End Date Sharri House [address] [facility] [address] [place] [address] PCP - General 07/17/10
--- OUTSIDE RECORDS SUMMARY | 2025-04-02 13:10 | XMS_ITS | Encounter Summary ---
Author Organization [facility] Address [address] [place] [address] Care Team Providers Care Siebel Administrator Name Role Phone EndyZeynep Gm TRUONG Primary Care Provider [phone] Encounter Details Date Type Department Care Team (Late Contact Info) Description 02/19/2025 Orders Only [facility] Medicine Specialties [address], [address] [place] [address] Monica Bee MD [address] [place] [address] Decompensated cirrhosis (CMS/HCC) (Primary Dx); [...] EDT Clinical Support [facility] [address] [facility], 2nd [place] [address] Tiffany Leon, RD [address] [place] [address] 07/18/2025 8:00 AM EST Office Visit [facility] [address], [address] [place] [address] Sheyla Colin MD [address] [place] [address] documented as of this encounter [...] documented as of this encounter Care Teams Siebel Administrator Relationship Specialty Start Date End Date Zeynep Schumacher APRN [address] [place] [address] PCP - General 06/21/24 documented as of this encounter
--- OUTSIDE RECORDS SUMMARY | 2025-04-02 13:10 | XMS_ITS | Encounter Summary ---
Author Organization [facility] Address [address] [place] [address] Care Team Providers Care Finance Insurance Manager Name Role Phone EndyZeynep schmitt Gm TRUONG Primary Care Provider [phone] Reason for Visit * Reason Onset Date Comments Prior-authorization/insuranc e Verification 02/06/2025 GLOIRA Mosqueda packetsKEY: [email or web address] Encounter Details Date Type Department Care Team (Late st Contact Info) Description 02/06/2025 Telephone [facility] [address] [place] [address] Wisam Martinez, RN [facility] Prior-authorization/in surance Verification (GLORIA MORAN/Gianluca packets/GUTIERREZ: [id number]) Social History Tobacco Use Types Packs/Day Years [...] 10:39 AM EDT GLORIA Hough packets GUTIERREZ: [id number] documented in this encounter Plan of Treatment Upcoming Encounters Date Type Department Care Team (Late st Contact Info) Description 04/09/2025 9:00 AM EDT Clinical Support [facility] Medicine Specialties [address], [address] [place] [address] Tiffany Leon, RD [address] [place] [address] 07/18/2025 8:00 AM EST Office Visit [facility] Medicine Specialties [address], [address] [place] [address] Sheyla Colin MD [address] [place] [address] documented as of this encounter [...] documented as of this encounter Care Teams Finance Insurance Manager Relationship Specialty Start Date End Date Zeynep Schumacher APRN [facility] [place] [address] PCP - General 06/21/24 documented as of this encounter
--- OUTSIDE RECORDS SUMMARY | 2025-04-02 13:10 | XMS_ITS | Clinical Summary ---
Author Organization [facility] Address [address] [place] [address] Care Team Providers Care Automotive General Manager Name Role Phone Zeynep Schumacher APRN Primary Care Provider [phone] Allergies No known active allergies Medications Eliquis [...] Department Care Team Description 02/19/2025 Results Follow-Up [facility] Medicine Specialties [address] [place] [address], [address] [place] [phone] Monica Bee MD 02/19/2025 Orders Only [facility] Medicine Specialties [address] [place] [address], [address] [place] [phone] Monica Bee MD Decompensated cirrhosis (CMS/HCC) (Primary Dx); Hepatic encephalopathy (CMS/HCC); Chronic idiopathic constipation 02/14/2025 Orders Only [address] [address] Quynh Denis Decompensated cirrhosis (CMS/HCC); Alcoholic cirrhosis of liver without ascites (CMS/HCC); Other ascites 02/06/[address] [address] Wisam Martinez RN Prior-authorization/i nsurance Verification (CMM PA/Kristalose packets/GUTIERREZ: [id number]) 01/15/[address] [address] Wisam Martinez RN 01/10/2025 9:17 AM EDT - 01/10/2025 11:59 PM EDT Hospital Encounter [facility] Radiology [address], [address] [place] [address] Decompensated cirrhosis (CMS/HCC) Discharge Disposition: Home or Self Care 01/10/2025 8:20 AM EDT Office Visit [facility] Medicine Specialties [address], [address] [place] [address] Leonardo Bautista MD Decompensated cirrhosis (CMS/HCC) (Primary Dx) 01/10/2025 Results Follow-Up [facility] Medicine Specialties [address], [address] [place] [address] Leonardo Bautista MD 01/10/2025 Travel 01/09/2025 Travel 01/05/2025 Refill [facility] Medicine Specialties [address], [address] [place] [address] Monica Bee MD 01/04/2025 12:36 PM EDT Anesthesia Event [facility] [address] [place] [address] Luis Dhillon MD Baker, Matthew L, MD 01/04/2025 11:49 AM EDT - 01/04/2025 11:59 PM EDT Hospital Encounter [facility] [address] [place] [address] Barbara Varela, Luis Grigsby MD Harris, Kristi [...] Description 04/09/2025 9:00 AM EDT Clinical Support [facility] Medicine Specialties [address], [address] [place] [address] Tiffany Leon, RD [address] [place] [address] 07/18/2025 8:00 AM EST Office Visit [facility] [address], [address] [place] [address] Sheyla Colin MD [address] [place] [address] Health Maintenance Due Date Last Done Comments [facility]-Medicare Annual Wellness (AWV) 1972 [facility]-/Child/Adol SDOH Screenings 1972 [id number] Vaccine (#1) 1977 [facility]- SDOH Screenings 1990 [...] >= 12 mIU/mL 01/10/2025 11:20 AM EDT [facility] Comment: Nonreactive. Individual is considered not immune to HBV infection. Blood Venous blood specimen / Unknown Venipuncture / Unknown 01/10/2025 9:15 AM EDT 01/10/2025 9:15 AM EDT Result Qasim Coello MD LAB BLOOD ORDERABLES Fin al Result Performing Organization Address City/[facility]/ZIP Co de Phone Number [facility] [address] [place] [address] * Hepatitis A, IgG (01/10/2025 9:15 AM EDT) Hepatitis A Antibody IgG Negative Negative 01/10/2025 11:20 AM EDT [facility] Blood Venous blood specimen / Unknown Venipuncture / Unknown 01/10/2025 9:15 AM EDT 01/10/2025 9:15 AM EDT Result Qasim Coello MD LAB BLOOD ORDERABLES Fin al Result Performing Organization Address [facility] de Phone Number [facility] [address] [place] [address] * (ABNORMAL) Protime-INR (01/10/2025 9:15 AM EDT) Prothrombin Time 19.0(H) 12.0 - 14.3 sec LAB COAGULATION METHOD 01/10/2025 10:42 AM EDT [facility] INR 1.6(H) 0.9 - 1.1 LAB COAGULATION METHOD 01/10/2025 10:42 AM EDT [facility] Blood Venous blood specimen / Unknown Venipuncture / Unknown 01/10/2025 9:15 AM EDT 01/10/2025 9:15 AM EDT Narrative [facility] - 01/10/2025 10:42 AM EDT OPTIMAL INR RANGES FOR PATIENT ON ORAL ANTICOAGULANT THERAPY Prevention of venous thromboembolism INR 2.0 to 3.0 In patients with heart disease: Atrial fibrillation INR 2.0 to 3.0 Valvular heart disease INR 2.0 to 3.0 Tissue heart valves INR 2.0 to 3.0 Mechanical prosthetic valves INR 2.5 to 3.5 Prevention of recurrent HI INR 2.5 to 3.5 Result Qasim Galvanmail MD LAB BLOOD ORDERABLES Fin al Result [facility] [address] [place] [address] * (ABNORMAL) CBC and differential (01/10/2025 9:15 AM EDT) WBC Count 10.78(H) 3.70 - 10.30 10*3/uL LAB HEMATOLOGY METHOD 01/10/2025 10:27 AM EDT [facility] RBC Count 4.69 4.60 - 6.10 10*6/uL LAB HEMATOLOGY METHOD 01/10/2025 10:27 AM EDT [facility] HGB 14.5 13.7 - 17.5 g/dL LAB HEMATOLOGY METHOD 01/10/2025 10:27 AM EDT [facility] HCT 44.6 40.0 - 51.0 % LAB HEMATOLOGY METHOD 01/10/2025 10:27 AM EDT [facility] Platelet Count 240 155 - 369 10*3/uL LAB HEMATOLOGY METHOD 01/10/2025 10:27 AM EDT [facility] MCV 95 79 - 98 fL LAB HEMATOLOGY METHOD 01/10/2025 10:27 AM EDT [facility] MCH 30.9 26.0 - 32.0 pg LAB HEMATOLOGY METHOD 01/10/2025 10:27 AM EDT [facility] MCHC 32.5 30.7 - 35.5 g/dL LAB HEMATOLOGY METHOD 01/10/2025 10:27 AM EDT [facility] RDW 12.5 11.5 - 14.5 % LAB HEMATOLOGY METHOD 01/10/2025 10:27 AM EDT [facility] MPV 9.8 8.8 - 12.5 fL LAB HEMATOLOGY METHOD 01/10/2025 10:27 AM EDT [facility] nRBC 0.0 <=0.0 per 100 WBCs LAB HEMATOLOGY METHOD 01/10/2025 10:27 AM EDT [facility] Differential Type Automated LAB HEMATOLOGY METHOD 01/10/2025 10:27 AM EDT [facility] Neutrophils % 55 % LAB HEMATOLOGY METHOD 01/10/2025 10:27 AM EDT [facility] Lymphocytes % 30 % LAB HEMATOLOGY METHOD 01/10/2025 10:27 AM EDT [facility] Monocytes % 10 % LAB HEMATOLOGY METHOD 01/10/2025 10:27 AM EDT [facility] Eosinophils % 4 % LAB HEMATOLOGY METHOD 01/10/2025 10:27 AM EDT [facility] Basophils % 1 % LAB HEMATOLOGY METHOD 01/10/2025 10:27 AM EDT [facility] Immature Granulocytes % 0 % LAB HEMATOLOGY METHOD 01/10/2025 10:27 AM EDT [facility] Neutrophils Absolute 5.94 1.60 - 6.10 10*3/uL LAB HEMATOLOGY METHOD 01/10/2025 10:27 AM EDT [facility] Lymphocytes Absolute 3.21 1.20 - 3.90 10*3/uL LAB HEMATOLOGY METHOD 01/10/2025 10:27 AM EDT [facility] Monocytes Absolute 1.12(H) 0.30 - 0.90 10*3/uL LAB HEMATOLOGY METHOD 01/10/2025 10:27 AM EDT [facility] Eosinophils Absolute 0.39 0.00 - 0.50 10*3/uL LAB HEMATOLOGY METHOD 01/10/2025 10:27 AM EDT [facility] Basophils Absolute 0.09 0.00 - 0.10 10*3/uL LAB HEMATOLOGY METHOD 01/10/2025 10:27 AM EDT [facility] Immature Granulocytes Absolute 0.03 0.00 - 0.06 10*3/uL LAB HEMATOLOGY METHOD 01/10/2025 10:27 AM EDT [facility] Blood Venous blood specimen / Unknown Venipuncture / Unknown 01/10/2025 9:15 AM EDT 01/10/2025 9:15 AM EDT [facility] - 01/10/2025 10:27 AM EDT Therapeutic decision making should be based on absolute values, rather than percentages. us Sonja Coello MD LAB BLOOD ORDERABLES Fin al Result [facility] [address] [place] [address] * (ABNORMAL) Comprehensive metabolic panel (01/10/2025 9:15 AM EDT) [facility] Glucose, Plasma 107(H) 74 - 99 mg/dL 01/10/2025 10:49 AM EDT [facility] BUN, Plasma 15 7 - 21 mg/dL 01/10/2025 10:49 AM EDT [facility] Creatinine, Plasma 1.16 0.70 - 1.20 mg/dL 01/10/2025 10:49 AM EDT [facility] BUN/Creatinine Ratio 13 01/10/2025 10:49 AM EDT [facility] Sodium, Plasma 141 136 - 145 mmol/L 01/10/2025 10:49 AM EDT [facility] Potassium, Plasma 4.5 3.6 - 4.9 mmol/L 01/10/2025 10:49 AM EDT [facility] Chloride, Plasma 105 97 - 107 mmol/L 01/10/2025 10:49 AM EDT [facility] CO2, Plasma 24 22 - 29 mmol/L 01/10/2025 10:49 AM EDT [facility] Anion Gap 12 6 - 16 mmol/L 01/10/2025 10:49 AM EDT [facility] Total Calcium, Plasma 10.4(H) 8.9 - 10.2 mg/dL 01/10/2025 10:49 AM EDT [facility] Total Protein 8.2(H) 6.3 - 7.9 g/dL 01/10/2025 10:49 AM EDT [facility] Albumin, Plasma 4.5 3.5 - 5.2 g/dL 01/10/2025 10:49 AM EDT [facility] AST, Plasma 33 10 - 50 U/L 01/10/2025 10:49 AM EDT [facility] ALT, Plasma 33 10 - 50 U/L 01/10/2025 10:49 AM EDT [facility] Alkaline Phosphatase, Plasma 133(H) 40 - 115 U/L 01/10/2025 10:49 AM EDT [facility] Total Bilirubin, Plasma 0.5 0.2 - 1.1 mg/dL 01/10/2025 10:49 AM EDT [facility] eGFRcr 75.8 mL/min/1.7 3m*2 01/10/2025 10:49 AM EDT [facility] Comment:Reported eGFRcr in m L/min/1.73m2 is based the CKD-EPI 2020 equation that does not use a race coefficient. Blood Venous blood specimen / Unknown Venipuncture / Unknown 01/10/2025 9:15 AM EDT 01/10/2025 9:15 AM EDT Sonja Coello MD LAB BLOOD ORDERABLES Fin al Result [facility] [address] [place] [address] * EGD (01/04/2025 12:49 PM EDT) Anatomical [...] Barbara Varela DO Proceduralist Gilbert Melchor CRNA RELATIONS DIRECTOR Christina Garcia RN Endo Nurse Preprocedure A [...] Screen (06/21/2024 11:15 AM EDT) Pathologist [facility] HIV 1 & 2 Antibody/Antigen Screen Non Reactive Non Reactive 06/21/2024 1:22 PM EDT [facility] Comment:Screening for HIV 1 & 2 antibodies, and P24 antigen is NONREACTIVE. No confirmatory testing is required. Blood Venous blood specimen / Unknown Venipuncture / Unknown 06/21/2024 11:15 AM EDT 06/21/2024 11:17 AM EDT us Sonja Coello MD LAB BLOOD ORDERABLES Fin al Result [facility] [address] [place] [address] * Acute Hepatitis Panel (06/21/2024 11:15 AM EDT) Hepatitis B Surf Antigen Negative Negative 06/21/2024 1:54 PM EDT [facility] Hepatitis C Antibody Negative Negative 06/21/2024 1:54 PM EDT [facility] Hepatitis A Antibody IgM Negative Negative 06/21/2024 1:54 PM EDT [facility] Hepatitis B Core Antibody IgM Negative Negative 06/21/2024 1:54 PM EDT [facility] Blood Venous blood specimen / Unknown Venipuncture / Unknown 06/21/2024 11:15 AM EDT 06/21/2024 11:17 AM EDT us Sonja Coello MD LAB BLOOD ORDERABLES Fin al Result [facility] [address] [place] [address] from Last 3 Months or Most Recently Relevant to Health Maintenance Insurance [place]ICA[place] MEDICARE Care Teams Automotive General Manager Relationship Specialty Start Date End Date Zeynep Schumacher APRN [address] [place] [address] PCP - General 06/21/24
== END 2025-04-02 23:59 | disposition home or self-care (01) ==
LOC: RT 13:07
PROVIDERS: PCP Nurse Practitioner; Visit Provider Podiatrist
DX: M79.604 Pain in right leg (principal); R09.89 Other specified symptoms and signs involving the circulatory and respiratory systems
CPT/HCPCS: 93923

== ENCOUNTER 2025-04-30 11:08 | Outpatient (CLI) | payer MEDICARE, MEDICAID, SELFPAY ==
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
--- OUTSIDE RECORDS SUMMARY | 2025-04-30 11:10 | XMS_ITS | Encounter Summary ---
Author Organization [facility] Address [address] [place] [address] Care Team Providers Care Metalsmith Helper Name Role Phone EndyZeynep schmitt Gm TRUONG Primary Care Provider [phone] Encounter Details Date Type Department Care Team (Latest Contact Info) Description 04/08/2025 Travel Social History Tobacco Use Types Packs/Day Years [...] Description 07/18/2025 8:00 AM EST Office Visit [facility] Medicine Specialties [address] [place] [address] Sheyla Colin MD [address] [place] [address] 10/11/2025 9:00 AM EST Clinical Support [facility] Medicine Specialties [address], [address] [place] [address] Tiffany Leon, RD [address] [place] [address] documented as of this encounter Visit Diagnoses [...] documented as of this encounter Care Teams Metalsmith Helper Relationship Specialty Start Date End Date Zeynep Schumacher APRN [facility] [place] [address] PCP - General 06/21/24 documented as of this encounter
--- OUTSIDE RECORDS SUMMARY | 2025-04-30 11:11 | XMS_ITS | Clinical Summary ---
Author Organization [facility] Address [address] [place] [address] Care Team Providers Care Fine Grade Operator Name Role Phone Zeynep Schumacher APRN Primary Care Provider [phone] Allergies No known active allergies Medications Eliquis [...] TIME EACH DAY. 90 tablet 01/08/20 25 Active Additional Information [...] times a day. 90 packet 5 02/20/20 25 025 Active Active Problems No known active problems Encounters Date Type Department Care Team Description 04/09/2025 9:00 AM EDT Clinical Support [facility] Medicine Specialties [address] [place] [address], [address] [place] [phone] Tiffany Leon, KALEB 04/08/2025 Travel 02/19/2025 Results Follow-Up [facility] Medicine Specialties [address] [place] [address], [address] [place] [phone] Monica Bee MD 02/19/2025 Orders Only [facility] Medicine Specialties [address] [place] [phone] Monica Bee MD Decompensated cirrhosis (CMS/HCC) (Primary Dx); Hepatic encephalopathy (CMS/HCC); Chronic idiopathic constipation 02/14/2025 Orders Only [facility] Medicine Specialties [address] [place] [address], [address] [place] [phone] Quynh Denis Decompensated cirrhosis (CMS/HCC); Alcoholic cirrhosis of liver without ascites (CMS/HCC); Other ascites 02/06/2025 Telephone [facility] Medicine Specialties [address] [place] [address], [address] [place] [phone] Wisam Martinez, RN Prior-authorization/in surance Verification (CMM PA/Kristalose packets/GUTIERREZ: [id number]) from Last 3 Months Family History Medical [...] Description 07/18/2025 8:00 AM EST Office Visit [facility] Medicine Specialties [address], [address] [place] [address] Sheyla Colin MD [address] [place] [address] 10/11/2025 9:00 AM EST Clinical Support [facility] Medicine Specialties [address], [address] [place] [address] Tiffany Leon, RD [address] [place] [address] Health Maintenance Due Date Last Done Comments [facility]-Medicare Annual Wellness (AWV) 1970 [facility]-Infant/Child/Adol SDOH Screenings 1970 [id number] Vaccine (#1) 1977 [facility]- SDOH Screenings 1990 [...] Screening Completed 06/21/2024 [facility]-Obesity Intervention Completed 025, 01/10/2025, 11/08/2024, Additional history exists HPV Vaccines Aged Out [...] of liver without ascites (CMS/HCC) Other ascites ACUTE HEPATITIS PANEL Routine 06/21/2024 11:15 AM [...] Anatomical Region Laterality Modality Abdomen, Liver Ultrasound Sonja Coello MD IMG US PROCEDURES Final Result * HIV 1 & 2 Antibody/Antigen Screen (06/21/2024 11:15 AM EDT) Pathologist [facility] HIV 1 & 2 Antibody/Antigen Screen Non Reactive Non Reactive 06/21/2024 1:22 PM EDT [facility] Comment:Screening for HIV 1 & 2 antibodies, and P24 antigen is NONREACTIVE. No confirmatory testing is required. Blood Venous blood specimen / Unknown Venipuncture / Unknown 06/21/2024 11:15 AM EDT 06/21/2024 11:17 AM EDT Sonja Coello MD LAB BLOOD ORDERABLES Fin al Result [facility] [address] [place] [address] * Acute Hepatitis Panel (06/21/2024 11:15 AM EDT) Hepatitis B Surf Antigen Negative Negative 06/21/2024 1:54 PM EDT [facility] Hepatitis C Antibody Negative Negative 06/21/2024 1:54 PM EDT [facility] Hepatitis A Antibody IgM Negative Negative 06/21/2024 1:54 PM EDT [facility] Hepatitis B Core Antibody IgM Negative Negative 06/21/2024 1:54 PM EDT [facility] Blood Venous blood specimen / Unknown Venipuncture / Unknown 06/21/2024 11:15 AM EDT 06/21/2024 11:17 AM EDT Sonja Coello MD LAB BLOOD ORDERABLES Fin al Result [facility] [address] [place] [address] from Last 3 Months or Most Recently Relevant to Health Maintenance Insurance MEDICAID-[place] AETNA MEDICARE Care Teams Fine Grade Operator Relationship Specialty Start Date End Date Zeynep Schumacher APRN [address] [place] [address] PCP - General 06/21/24
--- OUTSIDE RECORDS SUMMARY | 2025-04-30 11:11 | XMS_ITS | Encounter Summary ---
Author Organization [facility] Address [address] [place] [address] Care Team Providers Care Sales Assistant Displays Name Role Phone Zeynep Schumacher ALEXI Primary Care Provider [phone] Encounter Details Date Type Department Care Team (Late Contact Info) Description 02/19/2025 Results Follow-Up [facility] Medicine Specialties [address] [place] [address] Monica Bee MD [address] [place] [address] Social History Tobacco Use Types [...] Encounters Date Type Department Care Team (Late Contact Info) Description 07/18/2025 8:00 AM EST Office Visit [facility] Medicine Specialties [address] [place] [address] Sheyla Colin MD [address] [place] [address] 10/11/2025 9:00 AM EST Clinical Support [facility] Specialties [address] [place] [address] Tiffany Leon, RD [address] [place] [address] documented as of this encounter Visit Diagnoses [...] documented as of this encounter Care Teams Sales Assistant Displays Relationship Specialty Start Date End Date Zeynep Schumacher APRN [address] [place] [address] PCP - General 06/21/24 documented as of this encounter
--- OUTSIDE RECORDS SUMMARY | 2025-04-30 11:11 | XMS_ITS | Encounter Summary ---
Author Organization [facility] Address [address] [place] [id number] Care Team Providers Care Range Scientist Name Role Phone Zeynep Schumacher APRN Primary Care Provider [phone] Encounter Details Date Type Department Care Team (Late Contact Info) Description 01/10/2025 Results Follow-Up [facility] Medicine Specialties [address] [place] [address] Leonardo Bautista MD [address] [place] [address] Social History Tobacco Use Types [...] Description 07/18/2025 8:00 AM EST Office Visit [facility] Medicine Specialties [address], [address] [place] [address] Sheyla Colin MD [address] [place], [place] [id number] 10/11/2025 9:00 AM EST Clinical Support [facility] Specialties [address] [place] [address] Tiffany Leon, RD [address] [place] [address] documented as of this encounter [...] documented as of this encounter Care Teams Range Scientist Relationship Specialty Start Date End Date Zeynep Schumacher, SALES REPRESENTATIVE [employer] [address] [place] [address] PCP - General 06/21/24 documented as of this encounter
--- OUTSIDE RECORDS SUMMARY | 2025-04-30 11:11 | XMS_ITS | Continuity of Care Document ---
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 [facility] Magnesium 1.9 1.6 - 2.4 mg/dL 02/16/2022 9:28 PM EDT [facility] Blood VENOUS BLOOD / Unknown Venipuncture / Unknown 02/16/2022 8:58 PM EDT 02/16/2022 9:02 PM EDT Alexandru Chapman MD CHEMISTRY ORDERABLES Final R esult Performing Organization Address City/[facility]/ZIP Co de Phone Number [facility] [address] [place] [address] * CT ANGIOGRAM PULMONARY W CONTRAST (02/16/2022 [...] Isovue 370 IV contrast as recorded in In[employer]. 2-D multiplanar reconstructions and 3-D MIP reconstructions [...] using Isovue 370 IVcontrast as recorded in [employer]. 2-D multiplanar reconstructions and 3-D MIP reconstructions [...] the ordering clinician. us Adriana H Thierry RESIDENTIAL LIVING ASSISTANT IM CT ORDERABLES Final Resul t * [...] the ordering clinician. us Adriana H Thierry RESIDENTIAL LIVING ASSISTANT IMG DIAGNOSTIC IMAGING ORDERA BLES Final Result * (ABNORMAL) CBC (02/16/2022 2:34 PM EDT) Only the most recent of16 resultswithin the time period is included. Pathologist [facility] WBC 11.9(H) 3.7 - 10.3 x10(3)/mcL 02/16/2022 2:42 PM EDT [facility] RBC 4.82 4.60 - 6.10 x10(6)/mcL 02/16/2022 2:42 PM EDT [facility] Hgb 16.4 13.7 - 17.5 g/dL 02/16/2022 2:42 PM EDT [facility] Hct 50.0 40.0 - 51.0 % 02/16/2022 2:42 PM EDT [facility] MCV 103.7(H) 80.0 - 100.0 fL 02/16/2022 2:42 PM EDT [facility] MCH 34.0 26.0 - 34.0 pg 02/16/2022 2:42 PM EDT [facility] MCHC 32.8 30.7 - 35.5 g/dL 02/16/2022 2:42 PM EDT [facility] RDW 13.9 <=14.9 % 02/16/2022 2:42 PM EDT [facility] Platelet 228 155 - 369 x10(3)/mcL 02/16/2022 2:42 PM EDT [facility] MPV 9.6 8.8 - 12.5 fL 02/16/2022 2:42 PM EDT [facility] Blood VENOUS BLOOD / Unknown Venipuncture / Unknown 02/16/2022 2:34 PM EDT 02/16/2022 2:39 PM EDT us Adriana Guadarrama RESIDENTIAL LIVING ASSISTANT HEMATOLOGY ORDERABLES Final R esult [facility] [address] [place] [address] * (ABNORMAL) D-DIMER (02/16/2022 2:34 PM EDT) Only the most recent of2 resultswithin the time period is included. Pathologist [facility] D-Dimer 561(H) <=500 ng/mL FEU 02/16/2022 2:58 PM EDT [facility] Comment:This is an automated latex enhanced immunoassay [...] 02/16/2022 2:40 PM EDT us Adriana Guadarrama RESIDENTIAL LIVING ASSISTANT HEMATOLOGY ORDERABLES Final R esult [facility] [address] [facility], [place] [address] * (ABNORMAL) HEPATIC FUNCTION PANEL (02/16/2022 2:34 PM EDT) Only the most recent of3 resultswithin the time period is included. Total Protein 8.0 6.4 - 8.3 gm/dL 02/16/2022 2:55 PM EDT [facility] Albumin 4.4 3.5 - 5.2 gm/dL 02/16/2022 2:55 PM EDT [facility] Bili Direct 0.5(H) 0.0 - 0.3 mg/dL 02/16/2022 2:55 PM EDT [facility] Bili Total 1.4 0.1 - 1.4 mg/dL 02/16/2022 2:55 PM EDT [facility] AST 110(H) <=40 U/L 02/16/2022 2:55 PM EDT [facility] ALT 110(H) <=41 U/L 02/16/2022 2:55 PM EDT [facility] Alk Phos 125 40 - 129 U/L 02/16/2022 2:55 PM EDT [facility] Blood VENOUS BLOOD / Unknown Venipuncture / Unknown 02/16/2022 2:34 PM EDT 02/16/2022 2:39 PM EDT us Adriana Guadarrama RESIDENTIAL LIVING ASSISTANT CHEMISTRY ORDERABLES Final Re sult Performing Organization Address City/[facility] Co de Phone Number [facility] [address] [place] [address] * POCT EKG (03/20/2019 3:01 PM EDT) Only the most recent of4 resultswithin the time period is included. 03/20/2019 3:01 PM EDT [facility] - 03/20/2019 3:01 PM EDT Normal us Elías Lua MD POINT OF CARE CARDIOLOGY Final R esult Performing Organization Address [facility] Co de Phone Number SEP OFF[facility] * PHOSPHORUS LEVEL (07/31/2018 6:57 AM EST) Only the most recent of2 resultswithin the time period is included. Phosphorus 3.8 2.5 - 4.5 mg/dL 07/31/2018 7:51 AM EST [facility] Blood VENOUS BLOOD / Unknown Venipuncture / Unknown 07/31/2018 6:57 AM EST 07/31/2018 7:12 AM EST us Ab Woodruff MD CHEMISTRY ORDERABLES Noy l Result Performing Organization Address [facility] Co de Phone Number [facility] [address] [place] [address] * INTRAOP AIRWAY PLACEMENT (07/21/2018 11:43 AM EST) Narrative [facility] - 07/21/2018 11:43 AM EST [...] attempts: 1 Attempt 1 by: ZACH Title: TRUCK STRIKER us Lolly Leonardo MD MT ANESTHESIA Final Res ult [facility] [address] [place] [id number] * (ABNORMAL) PT / INR (07/21/2018 5:40 AM EST) Only the most recent of5 resultswithin the time period is included. PT 15.3(H) 9.7 - 12.5 second(s) 07/21/2018 6:48 AM EST [facility] INR 1.35(H) 0.86 - 1.10 no units 07/21/2018 6:48 AM EST [facility] Comment: Level of [...] ORDERABLES Fin al Result Performing Organization Address [facility] Phone Number [address] [address] * EXTRA GOLD SST (07/20/2018 7:28 PM EST) Blood VENOUS BLOOD / Unknown Venipuncture / Unknown 07/20/2018 7:28 PM EST 07/20/2018 7:32 PM EST Ab Woodruff MD CHEMISTRY ORDERABLES Noy l Result Performing Organization Address [facility] [place] [address] * EXTRA MINT GREEN LI (07/20/2018 7:28 PM EST) Only the most recent of2 resultswithin the time period is included. Blood VENOUS BLOOD / Unknown Venipuncture / Unknown 07/20/2018 7:28 PM EST 07/20/2018 7:32 PM EST Ab Woodruff MD CHEMISTRY ORDERABLES Noy l Result Performing Organization Address [facility] Phone Number [address] [address] * XR FOOT RIGHT AP LATERAL AND [...] abnormality of the foot. Ab Woodruff MD [facility] DIAGNOSTIC IMAGING OR DERABLES Final Result * [...] abnormality of the ankle. Ab Woodruff MD [facility] DIAGNOSTIC IMAGING OR DERABLES Final Result * THYROID STIMULATING HORMONE (07/17/2018 7:06 AM EST) Only the most recent of2 resultswithin the time period is included. TSH 2.590 0.270 - 4.200 mcIU/mL 07/17/2018 8:54 AM EST [facility] Blood VENOUS BLOOD / Unknown Venipuncture / Unknown 07/17/2018 7:06 AM EST 07/17/2018 7:13 AM EST Narrative [facility] - 07/17/2018 8:54 AM EST Ingestion of jose doses of biotin (>5 mg/day) taken within 8 hours of drawing blood sample can interfere with this immunoassay test. Ab Woodruff MD CHEMISTRY ORDERABLES Noy l Result Performing Organization Address [facility] de Phone Number [facility] [employer] [address] , [place] [phone] * T4, FREE (THYROXINE) (07/17/2018 7:06 AM EST) Pathologist [facility] Free T4 1.55 0.80 - 2.00 ng/dL 07/17/2018 8:54 AM EST [facility] Blood VENOUS BLOOD / Unknown Venipuncture / Unknown 07/17/2018 7:06 AM EST 07/17/2018 7:13 AM EST Narrative [facility] - 07/17/2018 8:54 AM EST Ingestion of jose doses of biotin (>5 mg/day) taken within 8 hours of drawing blood sample can interfere with this immunoassay test. Ab Woodruff MD CHEMISTRY ORDERABLES Noy l Result Performing Organization Address [facility] Phone Number [facility] [employer] , [place] [address] * SCANNED RHYTHM STRIPS (07/16/2018 2:06 PM EST) Anatomical Region Laterality Modality Other 07/16/2018 2:06 PM EST us Unknown Unknown IMG ECG ORDERABLES Final Result * (ABNORMAL) WOUND CULTURE (STAIN INCLUDED) (07/15/2018 11:55 PM EDT) [facility] Culture Positive Growth(A) 07/18/2018 2:40 PM EST [facility] Culture Abundant growth of Enterobacter aerogenes SUSCEPTIBI LITY RESULT 07/18/2018 2:40 PM EST [facility] Comment:Possible ESBL. Stain Moderate Gram positive cocci 07/18/2018 2:40 PM EST [facility] Stain Moderate Gram negative rods 07/18/2018 2:40 PM EST [facility] Stain Moderate WBCs 07/18/2018 2:40 PM EST [facility] Swab SKIN STRUCTURE OF INGUINAL REGION / [...] OR DERABLES Final Result [facility] [address] [facility], [place] [address] * (ABNORMAL) COMPREHENSIVE METABOLIC PANEL (07/15/2018 4:12 AM EDT) Sodium 136 136 - 145 mmol/L 07/15/2018 5:05 AM EDT [facility] Potassium 4.7 3.5 - 5.0 mmol/L 07/15/2018 5:05 AM EDT [facility] Chloride 102 98 - 107 mmol/L 07/15/2018 5:05 AM EDT [facility] Total CO2 24 22 - 29 mmol/L 07/15/2018 5:05 AM EDT [facility] Anion Gap 10 7 - 16 mmol/L 07/15/2018 5:05 AM EDT [facility] Calcium 9.1 8.6 - 10.2 mg/dL 07/15/2018 5:05 AM EDT [facility] Glucose Lvl 114(H) 74 - 100 mg/dL 07/15/2018 5:05 AM EDT [facility] BUN 17 6 - 20 mg/dL 07/15/2018 5:05 AM EDT [facility] Creatinine 1.15 0.67 - 1.30 mg/dL 07/15/2018 5:05 AM EDT [facility] Albumin 3.0(L) 3.5 - 5.2 gm/dL 07/15/2018 5:05 AM EDT [facility] Total Protein 7.2 6.4 - 8.3 gm/dL 07/15/2018 5:05 AM EDT [facility] Bili Total 0.4 0.1 - 1.4 mg/dL 07/15/2018 5:05 AM EDT [facility] ALT 36 <=41 IU/L 07/15/2018 5:05 AM EDT [facility] AST 28 <=40 IU/L 07/15/2018 5:05 AM EDT [facility] Alk Phos 70 40 - 129 IU/L 07/15/2018 5:05 AM EDT [facility] GFR Afr Am 88 >=60 mL/min/1.7 3 m2 07/15/2018 5:05 AM EDT [facility] GFR Non Afr Am 76 >=60 mL/min/1.7 3 m2 07/15/2018 5:05 AM EDT [facility] Comment: This estimated [...] Woodruff MD CHEMISTRY ORDERABLES Noy l Result [facility] [address] [place] [address] * (ABNORMAL) LIPID SCREEN (07/06/2018 5:27 AM EDT) Cholesterol 187 <=200 mg/dL 07/06/2018 6:21 AM EDT [facility] Comment: < 200 Desirable 200 - 239 Borderline High >= 240 High Triglyceride 163(H) <=150 mg/dL 07/06/2018 6:21 AM EDT [facility] Comment: < 150 Normal 150 - 199 Borderline High 200 - 499 High >= 500 Very High HDL 52 >=40 mg/dL 07/06/2018 6:21 AM EDT [facility] Comment: > 60 Optimal 40 - 60 Acceptable < 40 Low LDL Calculated 102(H) <=100 mg/dL 07/06/2018 6:21 AM EDT [facility] Comment: < 100 Optimal 100 - 129 Near or above optimal 130 - 159 Borderline High 160 - 189 High >= 190 Very High Non-HDL-C Calculated 135(H) <=129 mg/dL 07/06/2018 6:21 AM EDT [facility] Comment: <130 Desirable 130-159 Above Desirable 160-189 Borderline High 190-219 High >= 220 Very High Blood VENOUS BLOOD / Unknown Venipuncture / Unknown 07/06/2018 5:27 AM EDT 07/06/2018 5:47 AM EDT Mohan Tobin MD CHEMISTRY ORDERABLES Final Re sult [facility] [address] [facility], [place] [address] * EC ECHOCARDIOGRAM COMPLETE WITH BUBBLE STUDY [...] and they agreed to proceed. TID # [id number] Benny Casper DO IMG IR ORDERABLES Final Result * INTRAOP AIRWAY PLACEMENT (07/02/2018 10:38 AM EDT) Narrative [facility] - 07/02/2018 10:38 AM EDT [...] attempts: 1 Attempt 1 by: [email or web address] Title: TRUCK STRIKER us Cr Vargas MD MT ANESTHESIA Edited [facility] [address] [place] [id number] * IR TRANS ART OR VENOUS FOR [...] and they agreed to proceed. TID # [id number] Benny Casper DO IMG IR ORDERABLES Final Result * FIBRINOGEN (07/02/2018 5:00 AM EDT) Only the most recent of2 resultswithin the time period is included. Fibrinogen 238 196 - 447 mg/dL 07/02/2018 6:11 AM EDT [facility] [employer] Blood Venipuncture / Unknown 07/02/2018 5:00 AM EDT 07/02/2018 5:33 AM EDT Benny Casper DO HEMATOLOGY ORDERABLES F inal Result [facility] [employer], [address] , [place] [address] * IR TRANSCATH ARTERIAL INFUSION THROMBOLYSIS INITIAL [...] needle. The needle was removed and a 5-Finnish sheath was placed over the wire, flushed, [...] without any resistance. The Omni catheter and 5-Finnish sheath were removed, and a 6-Finnish Terumo Destination sheath was advanced up and [...] hour overnight. The Cragg-Ethel catheter and the 6-Finnish sheath were secured in place. The patient [...] back tomorrow for further angiogram. TID # [id number] Benny Casper DO IMG IR ORDERABLES Final [...] needle. The needle was removed and a 5-Finnish sheath was placed over the wire, flushed, [...] without any resistance. The Omni catheter and 5-Finnish sheath were removed, and a 6-Finnish Terumo Destination sheath was advanced up and [...] hour overnight. The Cragg-Ethel catheter and the 6-Finnish sheath were secured in place. The patient [...] back tomorrow for further angiogram. TID # [id number] Edsubhash Casper DO IMG IR ORDERABLES Final Result * EXTRA OLSON URINE CX (07/01/2018 2:34 AM EDT) Urine STRUCTURE OF URINARY TRACT PROPER / Unknown 07/01/2018 2:34 AM EDT 07/01/2018 2:43 AM EDT Tarik Sheth MD MICROBIOLOGY - GENERAL ORDERABLE S Final Result Performing Organization Address [facility] de Phone Number [facility] [address] [place] [address] * EXTRA RED/YELLOW UA (07/01/2018 2:34 AM EDT) Urine STRUCTURE OF URINARY TRACT PROPER / Unknown 07/01/2018 2:34 AM EDT 07/01/2018 2:44 AM EDT Tarik Sheth MD URINE ORDERABLES Final Result Performing Organization Address [facility] de Phone Number [facility] [address] [place] [address] * (ABNORMAL) DRUGS OF ABUSE, SCREEN ONLY, URINE (07/01/2018 2:34 AM EDT) 6 AM (Heroin) Absent Absent 07/01/2018 3:01 AM EDT [facility] Amphetamines Absent Absent 07/01/2018 3:01 AM EDT [facility] Barbiturates Absent Absent 07/01/2018 3:01 AM EDT [facility] Benzodiazepines Absent Absent 8 3:01 AM EDT [facility] Buprenorphine Absent Absent 07/01/2018 3:01 AM EDT [facility] Cannabinoid Metabolite Presumptive Pos(A) Absent 07/01/2018 3:01 AM EDT [facility] Cocaine Metabolite Absent Absent 2017 3:01 AM EDT [facility] Methadone and Metabolite Absent Absent 07/01/2018 3:01 AM EDT [facility] Opiate Presumptive Pos(A) Absent 07/01/2018 3:01 AM EDT [facility] Oxycodone Lvl Absent Absent 07/01/2018 3:01 AM EDT [facility] Phencyclidine Absent Absent 07/01/2018 3:01 AM EDT [facility] Creatinine Ur >25.0 mg/dL 07/01/2018 3:01 AM EDT [facility] Comment: Greater than 20: Consistent with valid sample Greater than 2 but less than 20: Possible dilution Less than 2: Questionable valid sample Urine STRUCTURE OF URINARY TRACT PROPER / Unknown 07/01/2018 2:34 AM EDT 07/01/2018 2:42 AM EDT Narrative [facility] - 07/01/2018 3:01 AM EDT These [...] Tarik Sheth MD URINE ORDERABLES Final Result [facility] [address] [place] [address] * BB HISTORY CHECK (07/01/2018 2:33 AM EDT) BB HISTORY CHECK (1) No Previous History 07/01/2018 3:17 AM EDT [facility] Blood VENOUS BLOOD / Unknown Venipuncture / Unknown 07/01/2018 2:33 AM EDT 07/01/2018 2:42 AM EDT Tarik Sheth MD BLOOD BANK ORDERABLES Final Resu lt Performing Organization Address [facility] Co de Phone Number [facility] [address] [place] [address] * ABORH (07/01/2018 2:33 AM EDT) ABORH Int A POS 07/01/2018 3:1 6 AM EDT [facility] Blood VENOUS BLOOD / Unknown Venipuncture / Unknown 07/01/2018 2:33 AM EDT 07/01/2018 2:42 AM EDT Tarik Sheth MD BLOOD BANK ORDERABLES Final Resu lt Performing Organization Address [facility] de Phone Number [facility] [address] [place] [address] * ANTIBODY SCREEN IGG (07/01/2018 2:33 AM EDT) ABSC IgG Int Negative 07/01/2018 3:16 AM EDT [facility] Blood VENOUS BLOOD / Unknown Venipuncture / Unknown 07/01/2018 2:33 AM EDT 07/01/2018 2:42 AM EDT Tarik Sheth MD BLOOD BANK ORDERABLES Final Resu lt Performing Organization Address [facility] de Phone Number [facility] [address] [place] [address] * CT ANGIOGRAM ABDOMINAL AORTA [...] postprocessing done by thereviewing physician on a [employer] workstation, with one or more of the [...] Percent 41 % 07/01/2018 2:04 AM EDT [facility] Lymph Percent 39 % 07/01/2018 2:04 AM EDT [facility] Mills Percent 12 % 07/01/2018 2:04 AM EDT [facility] Eos Percent 4 % 07/01/2018 2:04 AM EDT [facility] Baso Percent 2 % 07/01/2018 2:04 AM EDT [facility] Bands Percent 2 <=10 % 07/01/2018 2:04 AM EDT [facility] Neut # 5.5 1.8 - 7.7 x10(3)/mc L 07/01/2018 2:04 AM EDT [facility] Lymph # 5.0(H) 0.6 - 4.8 x10(3)/mc L 07/01/2018 2:04 AM EDT [facility] Mills # 1.5(H) 0.0 - 1.3 x10(3)/mc L 07/01/2018 2:04 AM EDT [facility] Eos# 0.5 0.0 - 0.5 x10(3)/mc L 07/01/2018 2:04 AM EDT [facility] Baso # 0.3(H) 0.0 - 0.2 x10(3)/mc L 07/01/2018 2:04 AM EDT [facility] RBC Morph Macrocytic 07/01/2018 2:04 AM EDT [facility] Blood VENOUS BLOOD / Unknown Venipuncture / Unknown 07/01/2018 1:24 AM EDT 07/01/2018 1:40 AM EDT us Tarik Sheth MD HEMATOLOGY ORDERABLES Final Resu lt Performing Organization Address [facility] Co de Phone Number [facility] [address] [place] [address] * CREATINE KINASE (07/01/2018 1:24 AM EDT) CK 178 39 - 308 IU/L 07/01/2018 2:15 AM EDT [facility] Blood VENOUS BLOOD / Unknown Venipuncture / Unknown 07/01/2018 1:24 AM EDT 07/01/2018 1:45 AM EDT us Tarik Sheth MD CHEMISTRY ORDERABLES Final Resul t Performing Organization Address [facility] de Phone Number [facility] [address] [place] [address] * XR CHEST PA AND [...] Report Accession Number Collected Date/Time Received Date/Time -[id number] 05/28/11 15:16 EDT 05/28/11 15:16 EDT Diagnosis Tonsils, excision: - Chronic lymphoid hyperplasia. ERSAMO JANE MD (Electronically signed by) Verified: 05/31/2011 [facility] Clinical Information Chronic tonsillitis. Gross Description Received in formalin labeled with the patient s name and tonsils are undesignated 2 enlarged oval shaped palatine tonsils (each 4.0 x 2.0 x 1.8 cm). The mucosa surfaces are pale rhoades-red and smooth. Serial sections show uniform, rhoades-pink tissue without focal lesions. Siderographer sections of each tonsil are submitted in two cassettes./[place] DO /[place] Microscopic Description Microscopic examination is performed and the findings corroborate the diagnosis. [facility] 05/28/2011 3:16 PM EDT us Patrice Mora MD PATHOLOGY ORDERABLES Final Resu lt Performing Organization Address City/[facility] Co de Phone Number [facility] [address] [place] [address] * (ABNORMAL) SMEAR REVIEW (07/21/2010 5:25 AM [...] HEMATOLOGY ORDERABLES Final Result Performing Organization Address City/[facility] Co de Phone Number [facility] [address] [place] [address] * VANCOMYCIN LEVEL TROUGH (07/21/2010 5:25 AM EST) Only the most recent of2 resultswithin the time period is included. Vanco Tr 12.33 7.00 - 15.00 mcg/mL [facility] Blood specimen (specimen) UPPER LIMB STRUCTURE / Unknown 07/21/2010 5:25 AM EST 07/21/2010 5:51 AM EST Narrative [facility] - 07/21/2010 6:48 AM EST Draw before dose of medication. 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
[2025-04-30 11:30] LABS: Hematocrit 43.4 % (42.0-52.0); Hemoglobin 14.1 g/dL (14.1-18.0); Immature Granulocytes % 0.1 %; Mean Corpuscular HGB Conc 32.5 g/dL (31.8-35.4); Mean Corpuscular Hemoglobin 30.9 pg (27.0-31.2); Mean Corpuscular Volume 95.0 fl (80-94); Nucleated Red Blood Cells % 0 %; Platelet Count 230 K/mm3 (142-424); Red Blood Count 4.57 M/mm3 (4.60-6.20); Red Cell Distribution Width-SD 46.6 fL; White Blood Count 7.7 K/mm3 (4.8-10.8)
[2025-04-30 12:02] LABS: Alanine Aminotransferase 35 U/L (12-78); Albumin Level 4.7 g/dl (3.5-5.0); Alkaline Phosphatase 130 U/L (38-126); Anion Gap 12.9 mEq/L (5-15); Aspartate Amino Transferase 40 U/L (17-59); Bilirubin,Direct 0.2 mg/dl (0.0-0.4); Bilirubin,Indirect 0.4 mg/dL (0.0-0.9); Bilirubin,Total 0.6 mg/dl (0.2-1.3); Bilirubin,Unconjugated 0.4 mg/dL (0.0-1.1); Blood Urea Nitrogen 22 mg/dl (9-20); Calcium 9.9 mg/dl (8.4-10.2); Carbon Dioxide 26 mmol/L (22.0-30.0); Chloride 106 mmol/L (98-107); Cholesterol 113 mg/dl (140-200); Creatinine,Serum 1.00 mg/dl (0.66-1.25); Estimated Glomerular Filt Rate 78 ml/min (>60); GFR (African American) 95 ML/MIN (>60); Glucose 76 mg/dl (74-100); HDL Cholesterol 45 mg/dl (40-60); Magnesium 1.8 mg/dl (1.6-2.3); Potassium 3.9 mmoL/L (3.5-5.1); Sodium 141 mmol/L (136-145); Total Protein,Serum 7.8 g/dl (6.3-8.2); Triglycerides 103 mg/dl (30-150)
[2025-04-30 12:19] LABS: Free T4 (Free Thyroxine) 1.35 ng/dl (0.78-2.19)
[2025-04-30 12:33] LABS: Thyroid Stimulating Hormone 0.42 uIU/mL (0.465-4.68)
== END 2025-04-30 23:59 | disposition home or self-care (01) ==
LOC: LAB 11:08
PROVIDERS: PCP Nurse Practitioner; Visit Provider Physician Assistant
DX: I10 Essential (primary) hypertension (principal); I25.10 Atherosclerotic heart disease of native coronary artery without angina pectoris; I73.9 Peripheral vascular disease, unspecified; E78.5 Hyperlipidemia, unspecified; R00.2 Palpitations; Z86.718 Personal history of other venous thrombosis and embolism
CPT/HCPCS: 36415; 80048; 80061; 80076; 83735; 84439; 84443; 85025

== ENCOUNTER 2025-05-16 12:57 | Outpatient (CLI) | payer MEDICARE, MEDICAID, SELFPAY ==
--- OUTSIDE RECORDS SUMMARY | 2025-04-09 09:00 | XMS_ITS | Encounter Summary ---
Author Organization [facility] Address [address] [place] [address] Care Team Providers Care Dental Services Director Name Role Phone Zeynep Schumacher APRN Primary Care Provider [phone] Reason for Visit * Consultation (Routine) - Closed Specialty Diagnoses / Procedures Referred By Contdannie t Referred To Contact Gastroenterology Diagnoses Decompensated cirrhosis (CMS/HCC) Sonja Coello MD [address] [facility] [address] [place] [address] Phone: tel: fax: Referral ID Status Reason Start Date Expiration Date V isits Requested Visits Authorized [id number] Closed Specialty Services Required 01/10/2025 07/12/2026 1 1 Encounter Details Date Type Department Care Team (Late st Contact Info) Description 04/09/2025 9:00 AM EDT Clinical Support [facility] Medicine Specialties [address] [place] [address] [facility] [address] [place] [address] Social History Tobacco Use Types [...] Patient confirms they are physically located in [place]. The patient has received and understands the [...] male who was referred to RD by [facility] Gastroenterology/hepatology clinic. PMH: He has a past [...] for low Na diet recipe resources; recommended [facility] DASH diet recipes and gave website info: https://www.[facility].org/healthy- lifestyle/recipes/zsje-hdfi-wszmnhf/rcs-26654624 RD recommended that pt consider using free [...] via email using secure pt feature to: [email or web address] Monitor/eval: RD offered interval f/u or prn; pt prefers 6 mo f/u. RD advised pt to call for soonerappt with RD if has unintended wt loss. Tiffany Leon RD, LD, MS documented in this encounter Plan of Treatment Upcoming Encounters Date Type Department Care Team (Late st Contact Info) Description 07/18/2025 8:00 AM EST Office Visit [facility] Medicine [place] [address] [facility] [place] [address] Sheyla Colin MD [address] [place] [address] 10/11/2025 9:00 AM EST Clinical Support [facility] [address], [address] [place] [phone] [facility] [address] [place] [phone] documented as of this encounter Visit Diagnoses [...] documented as of this encounter Care Teams Dental Services Director Relationship Specialty Start Date End Date Zeynep Schumacher APRN [address] [place] [address] PCP - General 06/21/24 documented as of this encounter
--- NOTE | 2025-05-16 13:00 | CT_ITS ---
FINAL REPORT TECHNIQUE: Post contrast axial imaging of the aorta and bilateral lower extremity was obtained and reviewed. This study was performed with techniques to keep radiation doses as low as reasonably achievable (ALARA). Individualized dose reduction techniques using automated exposure control or adjustment of mA and/or kV according to the patient''s size were employed. CLINICAL HISTORY: claudication FINDINGS: There is elevation of the right hemidiaphragm. The liver is nodular, may be related to mild cirrhosis. The spleen, pancreas, and left adrenal are unremarkable. The right kidney is only partially visualized. There are benign appearing cysts in the left kidney. There is extensive streak artifact from posterior fusion hardware bridging L5-S1. The urinary bladder is normal size and configuration. The celiac axis and SMA are widely patent. The renal arteries are patent. The abdominal aorta is normal in caliber. There is no evidence of aneurysm or dissection. The iliac arteries are widely patent. Right: There is mild vascular calcification of the common femoral without significant stenosis. The SFA is widely patent continuous with a patent popliteal artery. There is three-vessel runoff to the right foot. Left: The left common femoral artery and SFA are widely patent continuous with the popliteal artery. There is three-vessel runoff to the left foot. IMPRESSION: Significant elevation of the right hemidiaphragm. Nodular liver may be related to cirrhosis. No evidence of significant arterial occlusive disease. Reviewed, Interpreted and Dictated by Oren Aragon MD Transcribed by Marianna Brunson Authenticated and [facility]
--- OUTSIDE RECORDS SUMMARY | 2025-05-16 13:02 | XMS_ITS | Encounter Summary ---
Author Organization [facility] Address [address] [place] [address] Care Team Providers Care Corporate Pilot Name Role Phone Zeynep Schumacher ALEXI Primary Care Provider [phone] Encounter Details Date Type Department Care Team (Late Contact Info) Description 02/19/2025 Results Follow-Up [facility] Medicine Specialties [address] [place] [address] Monica Bee MD [address] [place] [address] Social History Tobacco Use Types [...] Description 07/18/2025 8:00 AM EST Office Visit [facility] Medicine Specialties [address] [place] [address] Sheyla Colin MD [address] [place] [address] 10/11/2025 9:00 AM EST Clinical Support [facility]ties [address] [place] [address] Tiffany Leon, RD [address] [place] [address] documented as of this encounter [...] documented as of this encounter Care Teams Corporate Pilot Relationship Specialty Start Date End Date Zeynep Schumacher APRN [address] [place] [address] PCP - General 06/21/24 documented as of this encounter
--- OUTSIDE RECORDS SUMMARY | 2025-05-16 13:02 | XMS_ITS | Encounter Summary ---
Author Organization [facility] Address [address] [place] [address] Care Team Providers Care Equine Dentist Name Role Phone EndyZeynep schmitt Gm TRUONG Primary Care Provider [phone] Encounter Details Date Type Department [facility] Team [facility] [address] [place] [address] Sheyla Colin MD [address] [place] [address] 10/11/2025 9:00 AM EST Clinical Support [facility] Medicine Specialties [address] [place] [address] Tiffany Leon, RD [address] [place] [address] documented as of this encounter Visit Diagnoses [...] documented as of this encounter Care Teams Equine Dentist Relationship Specialty Start Date End Date Zeynep Schumacher APRN [facility] [place] [address] PCP - General 06/21/24 documented as of this encounter
--- OUTSIDE RECORDS SUMMARY | 2025-05-16 13:02 | XMS_ITS | Continuity of Care Document ---
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 City/[facility]/[place] [address] * MAGNESIUM LEVEL (02/16/2022 8:58 PM EDT) Only the most recent of5 resultswithin the time period is included. Pathologist [facility] Magnesium 1.9 1.6 - 2.4 mg/dL 02/16/2022 9:28 PM EDT [facility] Blood VENOUS BLOOD / Unknown Venipuncture / Unknown 02/16/2022 8:58 PM EDT 02/16/2022 9:02 PM EDT Alexandru Chapman MD CHEMISTRY ORDERABLES Final R esult Performing Organization Address City/[facility]/ZIP Co de Phone Number [facility] 1 [place] [address] * CT ANGIOGRAM PULMONARY W CONTRAST (02/16/2022 [...] Isovue 370 IV contrast as recorded in [employer]. 2-D multiplanar reconstructions and 3-D MIP reconstructions [...] using Isovue 370 IVcontrast as recorded in [employer]. 2-D multiplanar reconstructions and 3-D MIP reconstructions [...] the ordering clinician. us Adriana H Thierry CONVERTIBLE TOP INSTALLER IM CT ORDERABLES Final Resul t * [...] the ordering clinician. us Adriana H Thierry CONVERTIBLE TOP INSTALLER IMG DIAGNOSTIC IMAGING ORDERA BLES Final Result * (ABNORMAL) CBC (02/16/2022 2:34 PM EDT) Only the most recent of16 resultswithin the time period is included. Pathologist [facility] WBC 11.9(H) 3.7 - 10.3 x10(3)/mcL 02/16/2022 2:42 PM EDT [facility] RBC 4.82 4.60 - 6.10 x10(6)/mcL 02/16/2022 2:42 PM EDT [facility] Hgb 16.4 13.7 - 17.5 g/dL 02/16/2022 2:42 PM EDT [facility] Hct 50.0 40.0 - 51.0 % 02/16/2022 2:42 PM EDT [facility] MCV 103.7(H) 80.0 - 100.0 fL 02/16/2022 2:42 PM EDT [facility] MCH 34.0 26.0 - 34.0 pg 02/16/2022 2:42 PM EDT [facility] MCHC 32.8 30.7 - 35.5 g/dL 02/16/2022 2:42 PM EDT [facility] RDW 13.9 <=14.9 % 02/16/2022 2:42 PM EDT [facility] Platelet 228 155 - 369 x10(3)/mcL 02/16/2022 2:42 PM EDT [facility] MPV 9.6 8.8 - 12.5 fL 02/16/2022 2:42 PM EDT [facility] Blood VENOUS BLOOD / Unknown Venipuncture / Unknown 02/16/2022 2:34 PM EDT 02/16/2022 2:39 PM EDT us Adriana Guadarrama CONVERTIBLE TOP INSTALLER HEMATOLOGY ORDERABLES Final R esult [facility] [address] [place] [address] * (ABNORMAL) D-DIMER (02/16/2022 2:34 PM EDT) Only the most recent of2 resultswithin the time period is included. Pathologist [facility] D-Dimer 561(H) <=500 ng/mL FEU 02/16/2022 2:58 PM EDT [facility] Comment:This is an automated latex enhanced immunoassay [...] 02/16/2022 2:40 PM EDT us Adriana Guadarrama CONVERTIBLE TOP INSTALLER HEMATOLOGY ORDERABLES Final R esult [facility] [address] [facility], [place] [address] * (ABNORMAL) HEPATIC FUNCTION PANEL (02/16/2022 2:34 PM EDT) Only the most recent of3 resultswithin the time period is included. Total Protein 8.0 6.4 - 8.3 gm/dL 02/16/2022 2:55 PM EDT [facility] Albumin 4.4 3.5 - 5.2 gm/dL 02/16/2022 2:55 PM EDT [facility] Bili Direct 0.5(H) 0.0 - 0.3 mg/dL 02/16/2022 2:55 PM EDT [facility] Bili Total 1.4 0.1 - 1.4 mg/dL 02/16/2022 2:55 PM EDT [facility] AST 110(H) <=40 U/L 02/16/2022 2:55 PM EDT [facility] ALT 110(H) <=41 U/L 02/16/2022 2:55 PM EDT [facility] Alk Phos 125 40 - 129 U/L 02/16/2022 2:55 PM EDT [facility] Blood VENOUS BLOOD / Unknown Venipuncture / Unknown 02/16/2022 2:34 PM EDT 02/16/2022 2:39 PM EDT us Adriana Guadarrama CONVERTIBLE TOP INSTALLER CHEMISTRY ORDERABLES Final Re sult Performing Organization Address City/[facility] Co de Phone Number [facility] [address] [place] [address] * POCT EKG (03/20/2019 3:01 PM EDT) Only the most recent of4 resultswithin the time period is included. 03/20/2019 3:01 PM EDT [facility] SEP OFFICE - 03/20/2019 3:01 PM EDT Normal us Elías Lua MD POINT OF CARE CARDIOLOGY Final R esult Performing Organization Address [facility] Co de Phone Number SEP OFFICE * PHOSPHORUS LEVEL (07/31/2018 6:57 AM EST) Only the most recent of2 resultswithin the time period is included. Phosphorus 3.8 2.5 - 4.5 mg/dL 07/31/2018 7:51 AM EST [facility] Blood VENOUS BLOOD / Unknown Venipuncture / Unknown 07/31/2018 6:57 AM EST 07/31/2018 7:12 AM EST us Ab Woodruff MD CHEMISTRY ORDERABLES Noy l Result Performing Organization Address [facility] Co de Phone Number [facility] [address] [place] [address] * INTRAOP AIRWAY PLACEMENT (07/21/2018 11:43 AM EST) Narrative [facility] - 07/21/2018 11:43 AM EST Bozena [...] attempts: 1 Attempt 1 by: ZACH Title: CONE BAKER MACHINE us Lolly Leonardo MD IN ANESTHESIA Final Res ult [facility] [address] [place] [phone] * (ABNORMAL) PT / INR (07/21/2018 5:40 AM EST) Only the most recent of5 resultswithin the time period is included. PT 15.3(H) 9.7 - 12.5 second(s) 07/21/2018 6:48 AM EST [facility] INR 1.35(H) 0.86 - 1.10 no units 07/21/2018 6:48 AM EST [facility] Comment: Level of Therapy Indications Target INR Range Standard Dose Treatment and prophylaxis of venous 2.0 - 3.0 thrombosis, pulmonary embolism High Dose High risk patients with mechanical 2.5 - 3.5 heart valves Blood VENOUS BLOOD / Unknown Venipuncture / Unknown 07/21/2018 5:40 AM EST 07/21/2018 6:21 AM EST Ab Woodruff MD HEMATOLOGY ORDERABLES Fin al Result Performing Organization Address [facility] Phone Number [address] [address] * EXTRA GOLD SST (07/20/2018 7:28 PM EST) Blood VENOUS BLOOD / Unknown Venipuncture / Unknown 07/20/2018 7:28 PM EST 07/20/2018 7:32 PM EST Ab Woodruff MD CHEMISTRY ORDERABLES Noy l Result Performing Organization Address [facility] [place] [address] * EXTRA MINT GREEN LI (07/20/2018 7:28 PM EST) Only the most recent of2 resultswithin the time period is included. Blood VENOUS BLOOD / Unknown Venipuncture / Unknown 07/20/2018 7:28 PM EST 07/20/2018 7:32 PM EST Ab Woodruff MD CHEMISTRY ORDERABLES Noy l Result Performing Organization Address [facility] Phone Number [address] [address] * XR FOOT RIGHT AP LATERAL AND [...] abnormality of the foot. Ab Woodruff MD [facility] OR DERABLES Final Result * [...] No acute osseous abnormality of the ankle. bA Woodruff MD [facility]ER[facility] Final Result * THYROID STIMULATING HORMONE (07/17/2018 7:06 AM EST) Only the most recent of2 resultswithin the time period is included. TSH 2.590 0.270 - 4.200 mcIU/mL 07/17/2018 8:54 AM EST [facility] Blood VENOUS BLOOD / Unknown Venipuncture / Unknown 07/17/2018 7:06 AM EST 07/17/2018 7:13 AM EST Narrative [facility] - 07/17/2018 8:54 AM EST Ingestion of jose doses of biotin (>5 mg/day) taken within 8 hours of drawing blood sample can interfere with this immunoassay test. Ab Woodruff MD CHEMISTRY ORDERABLES Noy l Result Performing Organization Address [facility] de Phone Number [facility] [employer] [address] , [place] [id number] * T4, FREE (THYROXINE) (07/17/2018 7:06 AM EST) Pathologist [facility] Free T4 1.55 0.80 - 2.00 ng/dL 07/17/2018 8:54 AM EST [facility] Blood VENOUS BLOOD / Unknown Venipuncture / Unknown 07/17/2018 7:06 AM EST 07/17/2018 7:13 AM EST Narrative [facility] - 07/17/2018 8:54 AM EST Ingestion of jose doses of biotin (>5 mg/day) taken within 8 hours of drawing blood sample can interfere with this immunoassay test. Ab Woodruff MD CHEMISTRY ORDERABLES Noy l Result Performing Organization Address [facility] Phone Number [facility] [employer] , [place] [address] * SCANNED RHYTHM STRIPS (07/16/2018 2:06 PM EST) Anatomical Region Laterality Modality Other 07/16/2018 2:06 PM EST us Unknown Unknown IMG ECG ORDERABLES Final Result * (ABNORMAL) WOUND CULTURE (STAIN INCLUDED) (07/15/2018 11:55 PM EDT) [facility] Culture Positive Growth(A) 07/18/2018 2:40 PM EST [facility] Culture Abundant growth of Enterobacter aerogenes SUSCEPTIBI LITY RESULT 07/18/2018 2:40 PM EST [facility] Comment:Possible ESBL. Stain Moderate Gram positive cocci 07/18/2018 2:40 PM EST [facility] Stain Moderate Gram negative rods 07/18/2018 2:40 PM EST [facility] Stain Moderate WBCs 07/18/2018 2:40 PM EST [facility] Swab SKIN STRUCTURE OF INGUINAL REGION [...] OR DERABLES Final Result [facility] [address] [facility], [place] [address] * (ABNORMAL) COMPREHENSIVE METABOLIC PANEL (07/15/2018 4:12 AM EDT) Sodium 136 136 - 145 mmol/L 07/15/2018 5:05 AM EDT [facility] Potassium 4.7 3.5 - 5.0 mmol/L 07/15/2018 5:05 AM EDT [facility] Chloride 102 98 - 107 mmol/L 07/15/2018 5:05 AM EDT [facility] Total CO2 24 22 - 29 mmol/L 07/15/2018 5:05 AM EDT [facility] Anion Gap 10 7 - 16 mmol/L 07/15/2018 5:05 AM EDT [facility] Calcium 9.1 8.6 - 10.2 mg/dL 07/15/2018 5:05 AM EDT [facility] Glucose Lvl 114(H) 74 - 100 mg/dL 07/15/2018 5:05 AM EDT [facility] BUN 17 6 - 20 mg/dL 07/15/2018 5:05 AM EDT [facility] Creatinine 1.15 0.67 - 1.30 mg/dL 07/15/2018 5:05 AM EDT [facility] Albumin 3.0(L) 3.5 - 5.2 gm/dL 07/15/2018 5:05 AM EDT [facility] Total Protein 7.2 6.4 - 8.3 gm/dL 07/15/2018 5:05 AM EDT [facility] Bili Total 0.4 0.1 - 1.4 mg/dL 07/15/2018 5:05 AM EDT [facility] ALT 36 <=41 IU/L 07/15/2018 5:05 AM EDT [facility] AST 28 <=40 IU/L 07/15/2018 5:05 AM EDT [facility] Alk Phos 70 40 - 129 IU/L 07/15/2018 5:05 AM EDT [facility] GFR Afr Am 88 >=60 mL/min/1.7 3 m2 07/15/2018 5:05 AM EDT [facility] GFR Non Afr Am 76 >=60 mL/min/1.7 3 m2 07/15/2018 5:05 AM EDT [facility] Comment: This estimated GFR [...] Woodruff MD CHEMISTRY ORDERABLES Noy l Result [facility] [address] [place] [address] * (ABNORMAL) LIPID SCREEN (07/06/2018 5:27 AM EDT) Cholesterol 187 <=200 mg/dL 07/06/2018 6:21 AM EDT [facility] Comment: < 200 Desirable 200 - 239 Borderline High >= 240 High Triglyceride 163(H) <=150 mg/dL 07/06/2018 6:21 AM EDT [facility] Comment: < 150 Normal 150 - 199 Borderline High 200 - 499 High >= 500 Very High HDL 52 >=40 mg/dL 07/06/2018 6:21 AM EDT [facility] Comment: > 60 Optimal 40 - 60 Acceptable < 40 Low LDL Calculated 102(H) <=100 mg/dL 07/06/2018 6:21 AM EDT [facility] Comment: < 100 Optimal 100 - 129 Near or above optimal 130 - 159 Borderline High 160 - 189 High >= 190 Very High Non-HDL-C Calculated 135(H) <=129 mg/dL 07/06/2018 6:21 AM EDT [facility] Comment: <130 Desirable 130-159 Above Desirable 160-189 Borderline High 190-219 High >= 220 Very High Blood VENOUS BLOOD / Unknown Venipuncture / Unknown 07/06/2018 5:27 AM EDT 07/06/2018 5:47 AM EDT Mohan Tobin MD CHEMISTRY ORDERABLES Final Re sult [facility] [address] [facility], [place] [address] * EC ECHOCARDIOGRAM COMPLETE WITH BUBBLE STUDY [...] and they agreed to proceed. TID # [id number] Benny Casper DO IMG IR ORDERABLES Final Result * INTRAOP AIRWAY PLACEMENT (07/02/2018 10:38 AM EDT) Narrative [facility] - 07/02/2018 10:38 AM EDT [facility] [...] attempts: 1 Attempt 1 by: VIOLETTE Title: CONE BAKER MACHINE us Cr Vargas MD IN ANESTHESIA Edited [facility] [address] [place] [id number] * IR TRANS ART OR VENOUS FOR [...] and they agreed to proceed. TID # [id number] Benny Casper DO IMG IR ORDERABLES Final Result * FIBRINOGEN (07/02/2018 5:00 AM EDT) Only the most recent of2 resultswithin the time period is included. Fibrinogen 238 196 - 447 mg/dL 07/02/2018 6:11 AM EDT [facility] [employer] Blood Venipuncture / Unknown 07/02/2018 5:00 AM EDT 07/02/2018 5:33 AM EDT Benny Casper DO HEMATOLOGY ORDERABLES F inal Result [facility] [employer], [address] , [place] [address] * IR TRANSCATH ARTERIAL INFUSION THROMBOLYSIS INITIAL [...] needle. The needle was removed and a 5-Ecuadorean sheath was placed over the wire, flushed, [...] without any resistance. The Omni catheter and 5-Ecuadorean sheath were removed, and a 6-Ecuadorean Terumo Destination sheath was advanced up and [...] hour overnight. The Cragg-Ethel catheter and the 6-Ecuadorean sheath were secured in place. The patient [...] back tomorrow for further angiogram. TID # [id number] Benny Casper DO IMG IR ORDERABLES Final [...] needle. The needle was removed and a 5-Ecuadorean sheath was placed over the wire, flushed, [...] without any resistance. The Omni catheter and 5-Ecuadorean sheath were removed, and a 6-Ecuadorean Terumo Destination sheath was advanced up and [...] hour overnight. The Cragg-Ethel catheter and the 6-Ecuadorean sheath were secured in place. The patient [...] back tomorrow for further angiogram. TID # [id number] Edsubhash Casper DO IMG IR ORDERABLES Final Result * EXTRA OLSON URINE CX (07/01/2018 2:34 AM EDT) Urine STRUCTURE OF URINARY TRACT PROPER / Unknown 07/01/2018 2:34 AM EDT 07/01/2018 2:43 AM EDT Tarik Sheth MD MICROBIOLOGY - GENERAL ORDERABLE S Final Result Performing Organization Address [facility] de Phone Number [facility] [address] [place] [address] * EXTRA RED/YELLOW UA (07/01/2018 2:34 AM EDT) Urine STRUCTURE OF URINARY TRACT PROPER / Unknown 07/01/2018 2:34 AM EDT 07/01/2018 2:44 AM EDT Tarik Sheth MD URINE ORDERABLES Final Result Performing Organization Address [facility] de Phone Number [facility] [address] [place] [address] * (ABNORMAL) DRUGS OF ABUSE, SCREEN ONLY, URINE (07/01/2018 2:34 AM EDT) 6 AM (Heroin) Absent Absent 07/01/2018 3:01 AM EDT [facility] Amphetamines Absent Absent 07/01/2018 3:01 AM EDT [facility] Barbiturates Absent Absent 07/01/2018 3:01 AM EDT [facility] Benzodiazepines Absent Absent 8 3:01 AM EDT [facility] Buprenorphine Absent Absent 07/01/2018 3:01 AM EDT [facility] Cannabinoid Metabolite Presumptive Pos(A) Absent 07/01/2018 3:01 AM EDT [facility] Cocaine Metabolite Absent Absent 2017 3:01 AM EDT [facility] Methadone and Metabolite Absent Absent 07/01/2018 3:01 AM EDT [facility] Opiate Presumptive Pos(A) Absent 07/01/2018 3:01 AM EDT [facility] Oxycodone Lvl Absent Absent 07/01/2018 3:01 AM EDT [facility] Phencyclidine Absent Absent 07/01/2018 3:01 AM EDT [facility] Creatinine Ur >25.0 mg/dL 07/01/2018 3:01 AM EDT [facility] Comment: Greater than 20: Consistent with valid sample Greater than 2 but less than 20: Possible dilution Less than 2: Questionable valid sample Urine STRUCTURE OF URINARY TRACT PROPER / Unknown 07/01/2018 2:34 AM EDT 07/01/2018 2:42 AM EDT Narrative [facility] - 07/01/2018 3:01 AM EDT [...] Tarik Sheth MD URINE ORDERABLES Final Result [facility] [address] [place] [address] * BB HISTORY CHECK (07/01/2018 2:33 AM EDT) BB HISTORY CHECK (1) No Previous History 07/01/2018 3:17 AM EDT [facility] Blood VENOUS BLOOD / Unknown Venipuncture / Unknown 07/01/2018 2:33 AM EDT 07/01/2018 2:42 AM EDT Tarik Sheth MD BLOOD BANK ORDERABLES Final Resu lt Performing Organization Address [facility] Co de Phone Number [facility] [address] [place] [address] * ABORH (07/01/2018 2:33 AM EDT) ABORH Int A POS 07/01/2018 3:1 6 AM EDT [facility] Blood VENOUS BLOOD / Unknown Venipuncture / Unknown 07/01/2018 2:33 AM EDT 07/01/2018 2:42 AM EDT Tarik Sheth MD BLOOD BANK ORDERABLES Final Resu lt Performing Organization Address [facility] de Phone Number [facility] [address] [place] [address] * ANTIBODY SCREEN IGG (07/01/2018 2:33 AM EDT) ABSC IgG Int Negative 07/01/2018 3:16 AM EDT [facility] Blood VENOUS BLOOD / Unknown Venipuncture / Unknown 07/01/2018 2:33 AM EDT 07/01/2018 2:42 AM EDT Tarik Sheth MD BLOOD BANK ORDERABLES Final Resu lt Performing Organization Address [facility] de Phone Number [facility] [address] [place] [address] * CT ANGIOGRAM ABDOMINAL AORTA [...] postprocessing done by thereviewing physician on a [employer] workstation, with one or more of the [...] Percent 41 % 07/01/2018 2:04 AM EDT [facility] Lymph Percent 39 % 07/01/2018 2:04 AM EDT [facility] Inyo Percent 12 % 07/01/2018 2:04 AM EDT [facility] Eos Percent 4 % 07/01/2018 2:04 AM EDT [facility] Baso Percent 2 % 07/01/2018 2:04 AM EDT [facility] Bands Percent 2 <=10 % 07/01/2018 2:04 AM EDT [facility] Neut # 5.5 1.8 - 7.7 x10(3)/mc L 07/01/2018 2:04 AM EDT [facility] Lymph # 5.0(H) 0.6 - 4.8 x10(3)/mc L 07/01/2018 2:04 AM EDT [facility] Inyo # 1.5(H) 0.0 - 1.3 x10(3)/mc L 07/01/2018 2:04 AM EDT [facility] Eos# 0.5 0.0 - 0.5 x10(3)/mc L 07/01/2018 2:04 AM EDT [facility] Baso # 0.3(H) 0.0 - 0.2 x10(3)/mc L 07/01/2018 2:04 AM EDT [facility] RBC Morph Macrocytic 07/01/2018 2:04 AM EDT [facility] Blood VENOUS BLOOD / Unknown Venipuncture / Unknown 07/01/2018 1:24 AM EDT 07/01/2018 1:40 AM EDT us Tarik Sheth MD HEMATOLOGY ORDERABLES Final Resu lt Performing Organization Address [facility] Co de Phone Number [facility] [address] [place] [address] * CREATINE KINASE (07/01/2018 1:24 AM EDT) CK 178 39 - 308 IU/L 07/01/2018 2:15 AM EDT [facility] Blood VENOUS BLOOD / Unknown Venipuncture / Unknown 07/01/2018 1:24 AM EDT 07/01/2018 1:45 AM EDT us Tarik Sheth MD CHEMISTRY ORDERABLES Final Resul t Performing Organization Address [facility] de Phone Number [facility] [address] [place] [address] * XR CHEST PA AND [...] Report Accession Number Collected Date/Time Received Date/Time -[id number] 05/28/11 15:16 EDT 05/28/11 15:16 EDT Diagnosis Tonsils, excision: - Chronic lymphoid hyperplasia. ERASMO JANE MD (Electronically signed by) Verified: 05/31/2011 [facility] Lab Clinical Information Chronic tonsillitis. Gross Description Received in formalin labeled with the patient s name and tonsils are undesignated 2 enlarged oval shaped palatine tonsils (each 4.0 x 2.0 x 1.8 cm). The mucosa surfaces are pale rhoades-red and smooth. Serial sections show uniform, rhoades-pink tissue without focal lesions. Knitting Tester sections of each tonsil are submitted in two cassettes./[place] DO /[place] Microscopic Description Microscopic examination is performed and the findings corroborate the diagnosis. [facility] 05/28/2011 3:16 PM EDT us Patrice Mora MD PATHOLOGY ORDERABLES Final Resu lt Performing Organization Address City/[facility] Co de Phone Number [facility] [address] [place] [address] * (ABNORMAL) SMEAR REVIEW (07/21/2010 5:25 AM [...] HEMATOLOGY ORDERABLES Final Result Performing Organization Address City/[facility] Co de Phone Number [facility] [address] [place] [address] * VANCOMYCIN LEVEL TROUGH (07/21/2010 5:25 AM EST) Only the most recent of2 resultswithin the time period is included. Vanco Tr 12.33 7.00 - 15.00 mcg/mL [facility] Blood specimen (specimen) UPPER LIMB STRUCTURE / Unknown 07/21/2010 5:25 AM EST 07/21/2010 5:51 AM EST Narrative [facility] - 07/21/2010 6:48 AM EST Draw before dose of medication. us Lizandro Mcclain MD CHEMISTRY ORDERABLES Final Resul t [facility] [address] [place] [address] * CT SOFT TISSUE NECK W CONTRAST [...] (ABNORMAL) MONONUCLEOSIS SCREEN (07/17/2010 4:15 AM EDT) [place] Screen Positive(A ) Negative [facility] Blood specimen (specimen) UPPER LIMB STRUCTURE / Unknown 07/17/2010 4:15 AM EDT 07/17/2010 4:47 AM EDT us Louise Zuniga MD CHEMISTRY ORDERABLES Final Res ult [facility] [address] [place] [address] Visit Diagnoses Diagnosis Start Date Pharyngitis Acute [...] dehydrogenase (LDH) 02/16/2022 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 [facility] [address] [place] [id number] PCP - General 07/17/10
--- OUTSIDE RECORDS SUMMARY | 2025-05-16 13:02 | XMS_ITS | Clinical Summary ---
Author Organization [facility] Address [address] [place] [address] Care Team Providers Care Batch Weigher Name Role Phone Zeynep Schumacher APRN Primary Care Provider [phone] Allergies No known active allergies Medications Eliquis [...] Description 04/09/2025 9:00 AM EDT Clinical Support [facility] [address] [place] [address] Tiffany Leon, KALEB 04/08/2025 Travel 02/19/2025 Results Follow-Up [facility] [address], [address] [place] [phone] Monica Bee MD 02/19/2025 Orders Only [facility] [address], [address] [place] [phone] Monica Bee MD Decompensated cirrhosis (CMS/HCC) (Primary Dx); Hepatic encephalopathy (CMS/HCC); Chronic idiopathic constipation 02/14/2025 Orders Only [facility] [address], [address] [place] [phone] Quynh Denis Decompensated cirrhosis (CMS/HCC); Alcoholic cirrhosis of liver without ascites (CMS/HCC); Other ascites from Last 3 Months Family History Medical [...] Description 07/18/2025 8:00 AM EST Office Visit [facility] [address] [place] [address] Sheyla Colin MD [address] [place] [phone] 10/11/2025 9:00 AM EST Clinical Support [facility] [address] [place] [address] Tiffany Leon, RD [address] [place] [address] Health Maintenance Due Date Last Done Comments [facility]-Medic[facility] Annual Wellness (AWV) 1972 [facility]-/Child/Adol SDOH Screenings 1972 [id number] Vaccine (#1) 1977 [facility]- SDOH Screenings 1990 [...] Anatomical Region Laterality Modality Abdomen, Liver Ultrasound Result Qasim Coello MD IMG US PROCEDURES Final Result * HIV 1 & 2 Antibody/Antigen Screen (06/21/2024 11:15 AM EDT) HIV 1 & 2 Antibody/Antigen Screen Non Reactive Non Reactive 06/21/2024 1:[address] [facility] Comment:Screening for HIV 1 & 2 antibodies, and P24 antigen is NONREACTIVE. No confirmatory testing is required. Blood Venous blood specimen / Unknown Venipuncture / Unknown 06/21/2024 11:15 AM EDT 06/21/2024 11:17 AM EDT Result Qasim Coello MD LAB BLOOD ORDERABLES Fin al Result [facility] [address] [place] [address] * Acute Hepatitis Panel (06/21/2024 11:15 AM EDT) Hepatitis B Surf Antigen Negative Negative 06/21/2024 1:[address] [facility] Hepatitis C Antibody Negative Negative 06/21/2024 1:[address] [facility] Hepatitis A Antibody IgM Negative Negative 06/21/2024 1:[address] [facility] Hepatitis B Core Antibody IgM Negative Negative 06/21/2024 1:[address] [facility] Blood Venous blood specimen / Unknown Venipuncture / Unknown 06/21/2024 11:15 AM EDT 06/21/2024 11:17 AM EDT Result Qasim Kebedeil MD LAB BLOOD ORDERABLES Fin al Result [facility] [address] [place] [address] from Last 3 Months or Most Recently Relevant to Health Maintenance Insurance [place] [employer] MED[employer]ARE Care Teams Batch Weigher Relationship Specialty Start Date End Date Zeynep Schumacher APRN [phone] [place] [address] PCP - General 06/21/24
[2025-05-16] MEDS: 0.9 % SODIUM CHLORIDE 50 ML VIAL 100 ML IV (13:33)
[2025-05-16] MEDS: IOPAMIDOL-370 (76%);100ML BOTTLE 120 ML IV (13:33)
[2025-05-16] MEDS: SODIUM CHLORIDE 0.9% 10ML SYR (RAD ONLY) 10 ML IV (13:33)
--- NOTE | 2025-05-16 13:45 | MR_ITS ---
FINAL REPORT CLINICAL HISTORY: Evaluation of Right Foot Deformities COMPARISON: None FINDINGS: Multiplanar MR imaging of the right foot was performed without contrast. The bony structures are intact without evidence of fracture, bone bruise or marrow edema. The ankle mortise is intact. The Achilles tendon is intact. The flexor and extensor tendons are intact. The musculature is intact. The plantar aponeurosis is intact. A small joint effusion is present. There is mild subcutaneous edema overlying the medial malleolus. There is mild hypertrophic change of the talonavicular joint consistent with osteoarthritis. IMPRESSION: Mild hypertrophic change of the talonavicular joint consistent with osteoarthritis. Small joint effusion. Reviewed, Interpreted and Dictated by Oren Aragon MD Transcribed by Mary Hayward Authenticated and [facility]
== END 2025-05-16 23:59 | disposition home or self-care (01) ==
LOC: RAD 12:57
PROVIDERS: PCP Nurse Practitioner; Visit Provider Physician Assistant
DX: Q79.1 Other congenital malformations of diaphragm (principal); M19.071 Primary osteoarthritis, right ankle and foot; M25.474 Effusion, right foot; M20.41 Other hammer toe(s) (acquired), right foot; M21.621 Bunionette of right foot; I10 Essential (primary) hypertension; I25.10 Atherosclerotic heart disease of native coronary artery without angina pectoris; I73.9 Peripheral vascular disease, unspecified; E78.5 Hyperlipidemia, unspecified; R93.2 Abnormal findings on diagnostic imaging of liver and biliary tract; R00.2 Palpitations; Z86.718 Personal history of other venous thrombosis and embolism
CPT/HCPCS: 73718; 75635; Q9967

== ENCOUNTER 2025-09-10 07:24 | Outpatient (CLI) | payer MEDICARE, MEDICAID, SELFPAY ==
--- OUTSIDE RECORDS SUMMARY | 2025-07-18 08:00 | XMS_ITS | Encounter Summary ---
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 EST) WBC Count 8.74 3.70 - 10.30 10*3/uL LAB HEMATOLOGY METHOD 07/18/2025 11:25 AM EST [facility] RBC Count 4.34(L) 4.60 - 6.10 10*6/uL LAB HEMATOLOGY METHOD 07/18/2025 11:25 AM EST [facility] HGB 13.9 13.7 - 17.5 g/dL LAB HEMATOLOGY METHOD 07/18/2025 11:25 AM EST [facility] HCT 41.2 40.0 - 51.0 % LAB HEMATOLOGY METHOD 07/18/2025 11:25 AM EST [facility] Platelet Count 299 155 - 369 10*3/uL LAB HEMATOLOGY METHOD 07/18/2025 11:25 AM EST [facility] MCV 95 79 - 98 fL LAB HEMATOLOGY METHOD 07/18/2025 11:25 AM EST [facility] MCH 32.0 26.0 - 32.0 pg LAB HEMATOLOGY METHOD 07/18/2025 11:25 AM EST [facility] MCHC 33.7 30.7 - 35.5 g/dL LAB HEMATOLOGY METHOD 07/18/2025 11:25 AM EST [facility] RDW 13.2 11.5 - 14.5 % LAB HEMATOLOGY METHOD 07/18/2025 11:25 AM EST [facility] MPV 10.1 8.8 - 12.5 fL LAB HEMATOLOGY METHOD 07/18/2025 11:25 AM EST [facility] nRBC 0.0 <=0.0 per 100 WBCs LAB HEMATOLOGY METHOD 07/18/2025 11:25 AM EST [facility] Differential Type Automated LAB HEMATOLOGY METHOD 07/18/2025 11:25 AM EST [facility] Neutrophils % 63 % LAB HEMATOLOGY METHOD 07/18/2025 11:25 AM EST [facility] Lymphocytes % 21 % LAB HEMATOLOGY METHOD 07/18/2025 11:25 AM EST [facility] Monocytes % 13 % LAB HEMATOLOGY METHOD 07/18/2025 11:25 AM EST [facility] Eosinophils % 2 % LAB HEMATOLOGY METHOD 07/18/2025 11:25 AM EST [facility] Basophils % 1 % LAB HEMATOLOGY METHOD 07/18/2025 11:25 AM EST [facility] Immature Granulocytes % 0 % LAB HEMATOLOGY METHOD 07/18/2025 11:25 AM EST [facility] Neutrophils Absolute 5.52 1.60 - 6.10 10*3/uL LAB HEMATOLOGY METHOD 07/18/2025 11:25 AM EST [facility] Lymphocytes Absolute 1.79 1.20 - 3.90 10*3/uL LAB HEMATOLOGY METHOD 07/18/2025 11:25 AM EST [facility] Monocytes Absolute 1.16(H) 0.30 - 0.90 10*3/uL LAB HEMATOLOGY METHOD 07/18/2025 11:25 AM EST [facility] Eosinophils Absolute 0.20 0.00 - 0.50 10*3/uL LAB HEMATOLOGY METHOD 07/18/2025 11:25 AM EST [facility] Basophils Absolute 0.05 0.00 - 0.10 10*3/uL LAB HEMATOLOGY METHOD 07/18/2025 11:25 AM EST [facility] Immature Granulocytes Absolute 0.02 0.00 - 0.06 10*3/uL LAB HEMATOLOGY METHOD 07/18/2025 11:25 AM EST [facility] Blood Venous blood specimen / Unknown Venipuncture / Unknown 07/18/2025 8:41 AM EST 07/18/2025 8:41 AM EST Narrative [facility] - 07/18/2025 11:25 AM EST Therapeutic decision making should be based on absolute values, rather than percentages. us Sonja Coello MD LAB BLOOD ORDERABLES Fin al Result [facility] [address] [place] [address] * Alpha Fetoprotein, Serum (07/18/2025 8:41 AM EST) Alpha Fetoprotein, Serum 2.4 <10.0 ng/mL 07/18/2025 11:46 AM EST [facility] Blood Venous blood specimen / Unknown Venipuncture / Unknown 07/18/2025 8:41 AM EST 07/18/2025 8:41 AM EST Narrative [facility] - 07/18/2025 11:46 AM EST Performed by Jose electrochemiluminescent immunoassay which is traceable to the 1st AFP IRP WHO Reference standard 72/255. Results obtained with different test methods or kits cannot be used interchangeably. us Sonja Coello MD LAB BLOOD ORDERABLES Fin al Result [facility] [address] [place] [address] documented in this encounter Visit Diagnoses Diagnosis Decompensated cirrhosis (CMS/HCC) Hepatic encephalopathy (CMS/HCC) Hepatic encephalopathy Chronic idiopathic constipation Unspecified constipation documented in this encounter Additional Health Concerns Assessment Noted Time PHQ-9 Depression Total Score: 0 11/01/19 25 10:26 AM EST A fall risk assessment has been complete d for the patient 01/10/2025 8:13 AM EDT A Body Mass Index follow-up plan has been documented for the patient 07/19/2025 5:00 PM EST documented as of this encounter Care Teams Airborne Weapons Technical Manager Relationship Specialty Start Date End Date Zeynep Schumacher APRN [facility] [place] [address] PCP - General 06/21/24 documented as of this encounter
--- OUTSIDE RECORDS SUMMARY | 2025-09-10 07:26 | XMS_ITS | Encounter Summary ---
Author Organization [facility] Address [address] [place] [address] Care Team Providers Care Medication Reconciliation Technician Name Role Phone Zeynep Schumacher APRN Primary Care Provider [phone] Encounter Details Date Type Department Care Team (Late st Contact Info) Description 08/30/2025 Telephone [facility] Medicine Specialties [address] [place] [address] Sonja Coello MD [address] [place] [address] Social History Tobacco Use Types [...] encounter Miscellaneous Notes * Telephone Encounter - Ema Draper - 09/03/2025 7:26 AM EST Liver US has been sent. Thank you * Telephone Encounter - Zee Galvin - 08/30/2025 4:17 PM EST Status Update Call #1 1st call regarding the status of the initial request. Apirl calling from [facility] calling they received order to Liver US but did not receive authorization for scan, and will need that sent before they can schedule please fax to [phone] Best contact number: Other: [phone] Optimal time of day to reach caller: ANYTIME Additional comments/information from caller: None Note: Please do not reply to this message. Follow-up communication and further actions as a result of this message need to be communicated with the patient directly, if the patient is not active onMyChart. If the patient is active on MyChart, they will receive notification of the communication/outcome via [facility]. documented in this encounter Plan of Treatment Upcoming Encounters Date Type Department Care Team (Late st Contact Info) Description 10/11/2025 9:00 AM EST Clinical Support [facility] Medicine Specialties [address] [place] [address] Tiffany Leon, RD [address] [place] [address] 02/12/2026 11:00 AM EDT Office Visit [facility] Medicine Specialties [address] [place] [address] Sheyla Colin MD [address] [place], [place] [id number] documented as of this encounter Visit Diagnoses [...] documented as of this encounter Care Teams Medication Reconciliation Technician Relationship Specialty Start Date End Date Zeynep Schumacher APRN [facility] [place] [address] PCP - General 06/21/24 documented as of this encounter
--- OUTSIDE RECORDS SUMMARY | 2025-09-10 07:27 | XMS_ITS | Encounter Summary ---
Author Organization [facility] Address [address] [place] [address] Care Team Providers Care Manual Qa Tester Name Role Phone Endy Zeynep Gm TRUONG Primary Care Provider [phone] Encounter Details Date Type Department Care Team (Latest Contact Info) Description 07/18/2025 Travel Social History Tobacco Use Types Packs/Day [...] on file documented as of this encounter Functional Status * Communicable Disease Screening Question Answer Date of Assessment Author Have you been in contact wit h someone who was sick? No / Unsure 07/18/2025 7:38 AM EST Lo Re, Mireille A Do you have any of the following new or worsening symptoms? None of these 07/18/2025 7:38 AM EST Lo Re, Mireille A * Travel Screening Question Answer Date of Assessment Author Have you traveled intern[place] or domestically in the last month? No 07/18/2025 7:38 AM EST Lo Re , Mireille A documented as of this encounter Mental Status * Communicable Disease Screening Question Answer Entry Date Author Have you been in contact wit h someone who was sick? No / Unsure 07/18/2025 7:38 AM EST Lo Re, Mireille A Do you have any of the following new or worsening symptoms? None of these 07/18/2025 7:38 AM EST Lo Re, Mireille A * Travel Screening Question Answer Entry Date Author Have you traveled intern[place] or domestically in the last month? No 07/18/2025 7:38 AM EST Lo Re , Mireille A documented in this encounter Plan of Treatment Upcoming Encounters Date Type Department Care Team (Late st Contact Info) Description 10/11/2025 9:00 AM EST Clinical Support [facility] Medicine Specialties [address] [place] [address] Tiffany Leon, RD [address] [facility] [address] [place] [address] 02/12/2026 11:00 AM EDT Office Visit [facility] Medicine Specialties [address] [place] [address] Sheyla Colin MD [address] [place] [address] documented as of this encounter Visit [...] documented as of this encounter Care Teams Manual Qa Tester Relationship Specialty Start Date End Date Zeynep Schumacher APRN [address] [place] [address] PCP - General 06/21/24 documented as of this encounter
--- OUTSIDE RECORDS SUMMARY | 2025-09-10 07:27 | XMS_ITS | Encounter Summary ---
Author Organization [facility] Address [address] [place] [address] Care Team Providers Care Liaison Planner Name Role Phone EndyZeynep schmitt Gm TRUONG Primary Care Provider [phone] Encounter Details Date Type Department Care Team (Late st Contact Info) Description 07/18/2025 Results Follow-Up [facility] Medicine Specialties [address] [place] [address] Sheyla Colin MD [address] [place] [address] Social History Tobacco Use Types Packs/Day [...] Description 10/11/2025 9:00 AM EST Clinical Support [facility] Medicine Specialties [address] [place] [address] Tiffany Leon, RD [address] [place] [address] 02/12/2026 11:00 AM EDT Office Visit [facility] Medicine Specialties [address] [place] [address] Sheyla Colin MD [address] [place] [address] documented as of this encounter [...] documented as of this encounter Care Teams Liaison Planner Relationship Specialty Start Date End Date Zeynep Schumacher APRN [address] [place] [address] PCP - General 06/21/24 documented as of this encounter
--- OUTSIDE RECORDS SUMMARY | 2025-09-10 07:27 | XMS_ITS | Continuity of Care Document ---
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 conditions other than AMI that can cause elevated hs cTnT, and comparison of values from the 4th and 5th generation Christina tests. https://askmayoexpert.[facility].org/topic/clinical-answers/gnt-12263089/cpm-203 89529 Blood VENOUS BLOOD / Unknown Venipuncture / Unknown 02/16/2022 8:58 PM EDT 02/16/2022 9:02 PM EDT Narrative [facility] - 02/16/2022 9:22 PM EDT Ingestion of jsoe doses of biotin (>5 mg/day) taken within 8 hours of drawing blood sample can interfere with this immunoassay test. Alexandru Chapman MD CHEMISTRY ORDERABLES Final R esult Performing Organization Address City/[facility]/[place] [address] * MAGNESIUM LEVEL (02/16/2022 8:58 PM EDT) Only the most recent of5 resultswithin the time period is included. Pathologist [facility] Magnesium 1.9 1.6 - 2.4 mg/dL 02/16/2022 9:28 PM EDT [facility] Blood VENOUS BLOOD / Unknown Venipuncture / Unknown 02/16/2022 8:58 PM EDT 02/16/2022 9:02 PM EDT Alexandru Chapman MD CHEMISTRY ORDERABLES Final R esult Performing Organization Address City/[facility]/ZIP Co de Phone Number [facility] [address] [place] [address] * CT ANGIOGRAM PULMONARY W CONTRAST (02/16/2022 [...] Isovue 370 IV contrast as recorded in [place]. 2-D multiplanar reconstructions and 3-D MIP reconstructions [...] using Isovue 370 IVcontrast as recorded in [place]. 2-D multiplanar reconstructions and 3-D MIP reconstructions [...] the ordering clinician. us Adriana H Thierry [employer] SERVICES IM CT ORDERABLES Final Resul t * [...] the ordering clinician. us Adriana H Thierry [employer] SERVICES IMG DIAGNOSTIC IMAGING ORDERA BLES Final Result * (ABNORMAL) CBC (02/16/2022 2:34 PM EDT) Only the most recent of16 resultswithin the time period is included. Pathologist [facility] WBC 11.9(H) 3.7 - 10.3 x10(3)/mcL 02/16/2022 2:42 PM EDT [facility] RBC 4.82 4.60 - 6.10 x10(6)/mcL 02/16/2022 2:42 PM EDT [facility] Hgb 16.4 13.7 - 17.5 g/dL 02/16/2022 2:42 PM EDT [facility] Hct 50.0 40.0 - 51.0 % 02/16/2022 2:42 PM EDT [facility] MCV 103.7(H) 80.0 - 100.0 fL 02/16/2022 2:42 PM EDT [facility] MCH 34.0 26.0 - 34.0 pg 02/16/2022 2:42 PM EDT [facility] MCHC 32.8 30.7 - 35.5 g/dL 02/16/2022 2:42 PM EDT [facility] RDW 13.9 <=14.9 % 02/16/2022 2:42 PM EDT [facility] Platelet 228 155 - 369 x10(3)/mcL 02/16/2022 2:42 PM EDT [facility] MPV 9.6 8.8 - 12.5 fL 02/16/2022 2:42 PM EDT [facility] Blood VENOUS BLOOD / Unknown Venipuncture / Unknown 02/16/2022 2:34 PM EDT 02/16/2022 2:39 PM EDT us Adriana Guadarrama [employer] [address] SERVICES HEMATOLOGY ORDERABLES Final R esult [facility] [address] [place] [address] * (ABNORMAL) D-DIMER (02/16/2022 2:34 PM EDT) Only the most recent of2 resultswithin the time period is included. Pathologist [facility] D-Dimer 561(H) <=500 ng/mL FEU 02/16/2022 2:58 PM EDT [facility] Comment:This is an automated latex enhanced immunoassay [...] 02/16/2022 2:40 PM EDT us Adriana Guadarrama [employer]PUT[employer] [address] SERVICES HEMATOLOGY ORDERABLES Final R esult [facility] [address] [facility] [place], [place] [address] * (ABNORMAL) HEPATIC FUNCTION PANEL (02/16/2022 2:34 PM EDT) Only the most recent of3 resultswithin the time period is included. Total Protein 8.0 6.4 - 8.3 gm/dL 02/16/2022 2:55 PM EDT [facility] Albumin 4.4 3.5 - 5.2 gm/dL 02/16/2022 2:55 PM EDT [facility] Bili Direct 0.5(H) 0.0 - 0.3 mg/dL 02/16/2022 2:55 PM EDT [facility] Bili Total 1.4 0.1 - 1.4 mg/dL 02/16/2022 2:55 PM EDT [facility] AST 110(H) <=40 U/L 02/16/2022 2:55 PM EDT [facility] ALT 110(H) <=41 U/L 02/16/2022 2:55 PM EDT [facility] Alk Phos 125 40 - 129 U/L 02/16/2022 2:55 PM EDT [facility] Blood VENOUS BLOOD / Unknown Venipuncture / Unknown 02/16/2022 2:34 PM EDT 02/16/2022 2:39 PM EDT us Adriana Guadarrama [employer] [address] SERVICES CHEMISTRY ORDERABLES Final Re sult Performing Organization Address City/[facility] Co de Phone Number [facility] [address] [place] [address] * POCT EKG (03/20/2019 3:01 PM EDT) Only the most recent of4 resultswithin the time period is included. 03/20/2019 3:01 PM EDT [facility] - 03/20/2019 3:01 PM EDT Normal us Elías Lua MD POINT OF CARE CARDIOLOGY Final R esult Performing Organization Address [facility] Co de Phone Number [facility] * PHOSPHORUS LEVEL (07/31/2018 6:57 AM EST) Only the most recent of2 resultswithin the time period is included. Phosphorus 3.8 2.5 - 4.5 mg/dL 07/31/2018 7:51 AM EST [facility] Blood VENOUS BLOOD / Unknown Venipuncture / Unknown 07/31/2018 6:57 AM EST 07/31/2018 7:12 AM EST us Ab Woodruff MD CHEMISTRY ORDERABLES Noy l Result Performing Organization Address [facility] Co de Phone Number [facility] [address] [place] [address] * INTRAOP AIRWAY PLACEMENT (07/21/2018 11:43 AM EST) Narrative [facility] - 07/21/2018 11:43 AM EST [...] attempts: 1 Attempt 1 by: ZACH Title: WETLAND SCIENTIST us Lolly Leonardo MD DE ANESTHESIA Final Res ult [facility] [address] [place] [id number] * (ABNORMAL) PT / INR (07/21/2018 5:40 AM EST) Only the most recent of5 resultswithin the time period is included. PT 15.3(H) 9.7 - 12.5 second(s) 07/21/2018 6:48 AM EST [facility] INR 1.35(H) 0.86 - 1.10 no units 07/21/2018 6:48 AM EST [facility] Comment: Level of [...] ORDERABLES Fin al Result Performing Organization Address [facility] Phone Number [address] [address] * EXTRA GOLD SST (07/20/2018 7:28 PM EST) Blood VENOUS BLOOD / Unknown Venipuncture / Unknown 07/20/2018 7:28 PM EST 07/20/2018 7:32 PM EST Ab Woodruff MD CHEMISTRY ORDERABLES Noy l Result Performing Organization Address [facility] [place] [address] * EXTRA MINT GREEN LI (07/20/2018 7:28 PM EST) Only the most recent of2 resultswithin the time period is included. Blood VENOUS BLOOD / Unknown Venipuncture / Unknown 07/20/2018 7:28 PM EST 07/20/2018 7:32 PM EST Ab Woodruff MD CHEMISTRY ORDERABLES Noy l Result Performing Organization Address [facility] Phone Number [address] [address] * XR FOOT RIGHT AP LATERAL AND [...] abnormality of the foot. Ab Woodruff MD [facility] DIAGNOSTIC IMAGING OR DERABLES Final Result * [...] abnormality of the ankle. Ab Woodruff MD [facility] DIAGNOSTIC IMAGING OR DERABLES Final Result * THYROID STIMULATING HORMONE (07/17/2018 7:06 AM EST) Only the most recent of2 resultswithin the time period is included. TSH 2.590 0.270 - 4.200 mcIU/mL 07/17/2018 8:54 AM EST [facility] [employer] Blood VENOUS BLOOD / Unknown Venipuncture / Unknown 07/17/2018 7:06 AM EST 07/17/2018 7:13 AM EST Narrative [facility] - 07/17/2018 8:54 AM EST Ingestion of jose doses of biotin (>5 mg/day) taken within 8 hours of drawing blood sample can interfere with this immunoassay test. Ab Woodruff MD CHEMISTRY ORDERABLES Noy l Result Performing Organization Address [facility] de Phone Number [facility] [employer] [address] , [place] [id number] * T4, FREE (THYROXINE) (07/17/2018 7:06 AM EST) Pathologist [facility] Free T4 1.55 0.80 - 2.00 ng/dL 07/17/2018 8:54 AM EST [facility] Blood VENOUS BLOOD / Unknown Venipuncture / Unknown 07/17/2018 7:06 AM EST 07/17/2018 7:13 AM EST Narrative [facility] - 07/17/2018 8:54 AM EST Ingestion of jose doses of biotin (>5 mg/day) taken within 8 hours of drawing blood sample can interfere with this immunoassay test. Ab Woodruff MD CHEMISTRY ORDERABLES Noy l Result Performing Organization Address [facility] Phone Number [facility] [employer] , [place] [address] * SCANNED RHYTHM STRIPS (07/16/2018 2:06 PM EST) Anatomical Region Laterality Modality Other 07/16/2018 2:06 PM EST us Unknown Unknown IMG ECG ORDERABLES Final Result * (ABNORMAL) WOUND CULTURE (STAIN INCLUDED) (07/15/2018 11:55 PM EDT) [facility] Culture Positive Growth(A) 07/18/2018 2:40 PM EST [facility] Culture Abundant growth of Enterobacter aerogenes SUSCEPTIBI LITY RESULT 07/18/2018 2:40 PM EST [facility] Comment:Possible ESBL. Stain Moderate Gram positive cocci 07/18/2018 2:40 PM EST [facility] Stain Moderate Gram negative rods 07/18/2018 2:40 PM EST [facility] [employer] Stain Moderate WBCs 07/18/2018 2:40 PM EST [facility] Swab SKIN STRUCTURE OF INGUINAL REGION [...] OR DERABLES Final Result [facility] [address] [facility], [place] [address] * (ABNORMAL) COMPREHENSIVE METABOLIC PANEL (07/15/2018 4:12 AM EDT) Sodium 136 136 - 145 mmol/L 07/15/2018 5:05 AM EDT [facility] Potassium 4.7 3.5 - 5.0 mmol/L 07/15/2018 5:05 AM EDT [facility] Chloride 102 98 - 107 mmol/L 07/15/2018 5:05 AM EDT [facility] Total CO2 24 22 - 29 mmol/L 07/15/2018 5:05 AM EDT [facility] Anion Gap 10 7 - 16 mmol/L 07/15/2018 5:05 AM EDT [facility] Calcium 9.1 8.6 - 10.2 mg/dL 07/15/2018 5:05 AM EDT [facility] Glucose Lvl 114(H) 74 - 100 mg/dL 07/15/2018 5:05 AM EDT [facility] BUN 17 6 - 20 mg/dL 07/15/2018 5:05 AM EDT [facility] Creatinine 1.15 0.67 - 1.30 mg/dL 07/15/2018 5:05 AM EDT [facility] Albumin 3.0(L) 3.5 - 5.2 gm/dL 07/15/2018 5:05 AM EDT [facility] Total Protein 7.2 6.4 - 8.3 gm/dL 07/15/2018 5:05 AM EDT [facility] Bili Total 0.4 0.1 - 1.4 mg/dL 07/15/2018 5:05 AM EDT [facility] ALT 36 <=41 IU/L 07/15/2018 5:05 AM EDT [facility] AST 28 <=40 IU/L 07/15/2018 5:05 AM EDT [facility] Alk Phos 70 40 - 129 IU/L 07/15/2018 5:05 AM EDT [facility] GFR Afr Am 88 >=60 mL/min/1.7 3 m2 07/15/2018 5:05 AM EDT [facility] GFR Non Afr Am 76 >=60 mL/min/1.7 3 m2 07/15/2018 5:05 AM EDT [facility] Comment: This estimated [...] Woodruff MD CHEMISTRY ORDERABLES Noy l Result [facility] [address] [place] [address] * (ABNORMAL) LIPID SCREEN (07/06/2018 5:27 AM EDT) Cholesterol 187 <=200 mg/dL 07/06/2018 6:21 AM EDT [facility] Comment: < 200 Desirable 200 - 239 Borderline High >= 240 High Triglyceride 163(H) <=150 mg/dL 07/06/2018 6:21 AM EDT [facility] Comment: < 150 Normal 150 - 199 Borderline High 200 - 499 High >= 500 Very High HDL 52 >=40 mg/dL 07/06/2018 6:21 AM EDT [facility] Comment: > 60 Optimal 40 - 60 Acceptable < 40 Low LDL Calculated 102(H) <=100 mg/dL 07/06/2018 6:21 AM EDT [facility] Comment: < 100 Optimal 100 - 129 Near or above optimal 130 - 159 Borderline High 160 - 189 High >= 190 Very High Non-HDL-C Calculated 135(H) <=129 mg/dL 07/06/2018 6:21 AM EDT [facility] Comment: <130 Desirable 130-159 Above Desirable 160-189 Borderline High 190-219 High >= 220 Very High Blood VENOUS BLOOD / Unknown Venipuncture / Unknown 07/06/2018 5:27 AM EDT 07/06/2018 5:47 AM EDT Mohan Tobin MD CHEMISTRY ORDERABLES Final Re sult [facility] [address] [facility] [place], [place] [address] * EC ECHOCARDIOGRAM COMPLETE WITH BUBBLE STUDY [...] and they agreed to proceed. TID # [id number] Benny Casper DO IMG IR ORDERABLES Final Result * INTRAOP AIRWAY PLACEMENT (07/02/2018 10:38 AM EDT) Narrative [facility] - 07/02/2018 10:38 AM EDT [...] attempts: 1 Attempt 1 by: [email or web address] Title: WETLAND SCIENTIST us Cr Vargas MD DE ANESTHESIA Edited [facility] [address] [place] [id number] * IR TRANS ART OR VENOUS FOR [...] and they agreed to proceed. TID # [id number] Benny Casper DO IMG IR ORDERABLES Final Result * FIBRINOGEN (07/02/2018 5:00 AM EDT) Only the most recent of2 resultswithin the time period is included. Fibrinogen 238 196 - 447 mg/dL 07/02/2018 6:11 AM EDT [facility] [employer] Blood Venipuncture / Unknown 07/02/2018 5:00 AM EDT 07/02/2018 5:33 AM EDT Benny Casper DO HEMATOLOGY ORDERABLES F inal Result [facility] [employer], [address] , [place] [address] * IR TRANSCATH ARTERIAL INFUSION THROMBOLYSIS INITIAL [...] needle. The needle was removed and a 5-St Lucian sheath was placed over the wire, flushed, [...] without any resistance. The Omni catheter and 5-St Lucian sheath were removed, and a 6-St Lucian Terumo Destination sheath was advanced up and [...] hour overnight. The Cragg-Ethel catheter and the 6-St Lucian sheath were secured in place. The patient [...] back tomorrow for further angiogram. TID # [id number] Benny Casper DO IMG IR ORDERABLES Final [...] needle. The needle was removed and a 5-St Lucian sheath was placed over the wire, flushed, [...] without any resistance. The Omni catheter and 5-St Lucian sheath were removed, and a 6-St Lucian Terumo Destination sheath was advanced up and [...] hour overnight. The Cragg-Ethel catheter and the 6-St Lucian sheath were secured in place. The patient [...] back tomorrow for further angiogram. TID # [id number] Edsubhash Casper DO IMG IR ORDERABLES Final Result * EXTRA OLSON URINE CX (07/01/2018 2:34 AM EDT) Urine STRUCTURE OF URINARY TRACT PROPER / Unknown 07/01/2018 2:34 AM EDT 07/01/2018 2:43 AM EDT Tarik Sheth MD MICROBIOLOGY - GENERAL ORDERABLE S Final Result Performing Organization Address [facility] de Phone Number [facility] [address] [place] [address] * EXTRA RED/YELLOW UA (07/01/2018 2:34 AM EDT) Urine STRUCTURE OF URINARY TRACT PROPER / Unknown 07/01/2018 2:34 AM EDT 07/01/2018 2:44 AM EDT Tarik Sheth MD URINE ORDERABLES Final Result Performing Organization Address [facility] de Phone Number [facility] [address] [place] [address] * (ABNORMAL) DRUGS OF ABUSE, SCREEN ONLY, URINE (07/01/2018 2:34 AM EDT) 6 AM (Heroin) Absent Absent 07/01/2018 3:01 AM EDT [facility] Amphetamines Absent Absent 07/01/2018 3:01 AM EDT [facility] Barbiturates Absent Absent 07/01/2018 3:01 AM EDT [facility] Benzodiazepines Absent Absent 8 3:01 AM EDT [facility] Buprenorphine Absent Absent 07/01/2018 3:01 AM EDT [facility] Cannabinoid Metabolite Presumptive Pos(A) Absent 07/01/2018 3:01 AM EDT [facility] Cocaine Metabolite Absent Absent 2017 3:01 AM EDT [facility] Methadone and Metabolite Absent Absent 07/01/2018 3:01 AM EDT [facility] Opiate Presumptive Pos(A) Absent 07/01/2018 3:01 AM EDT [facility] Oxycodone Lvl Absent Absent 07/01/2018 3:01 AM EDT [facility] Phencyclidine Absent Absent 07/01/2018 3:01 AM EDT [facility] Creatinine Ur >25.0 mg/dL 07/01/2018 3:01 AM EDT [facility] Comment: Greater than 20: Consistent with valid sample Greater than 2 but less than 20: Possible dilution Less than 2: Questionable valid sample Urine STRUCTURE OF URINARY TRACT PROPER / Unknown 07/01/2018 2:34 AM EDT 07/01/2018 2:42 AM EDT Narrative [facility] - 07/01/2018 3:01 AM [...] Tarik Sheth MD URINE ORDERABLES Final Result [facility] [address] [place] [address] * BB HISTORY CHECK (07/01/2018 2:33 AM EDT) BB HISTORY CHECK (1) No Previous History 07/01/2018 3:17 AM EDT [facility] Blood VENOUS BLOOD / Unknown Venipuncture / Unknown 07/01/2018 2:33 AM EDT 07/01/2018 2:42 AM EDT Tarik Sheth MD BLOOD BANK ORDERABLES Final Resu lt Performing Organization Address [facility] Co de Phone Number [facility] [address] [place] [address] * ABORH (07/01/2018 2:33 AM EDT) ABORH Int A POS 07/01/2018 3:1 6 AM EDT [facility] Blood VENOUS BLOOD / Unknown Venipuncture / Unknown 07/01/2018 2:33 AM EDT 07/01/2018 2:42 AM EDT Tarik Sheth MD BLOOD BANK ORDERABLES Final Resu lt Performing Organization Address [facility] de Phone Number [facility] [address] [place] [address] * ANTIBODY SCREEN IGG (07/01/2018 2:33 AM EDT) ABSC IgG Int Negative 07/01/2018 3:16 AM EDT [facility] Blood VENOUS BLOOD / Unknown Venipuncture / Unknown 07/01/2018 2:33 AM EDT 07/01/2018 2:42 AM EDT Tarik Sheth MD BLOOD BANK ORDERABLES Final Resu lt Performing Organization Address [facility] de Phone Number [facility] [address] [place] [address] * CT ANGIOGRAM ABDOMINAL AORTA [...] postprocessing done by thereviewing physician on a [employer] workstation, with one or more of the [...] Percent 41 % 07/01/2018 2:04 AM EDT [facility] Lymph Percent 39 % 07/01/2018 2:04 AM EDT [facility] [place] Percent 12 % 07/01/2018 2:04 AM EDT [facility] Eos Percent 4 % 07/01/2018 2:04 AM EDT [facility] Baso Percent 2 % 07/01/2018 2:04 AM EDT [facility] Bands Percent 2 <=10 % 07/01/2018 2:04 AM EDT [facility] Neut # 5.5 1.8 - 7.7 x10(3)/mc L 07/01/2018 2:04 AM EDT [facility] Lymph # 5.0(H) 0.6 - 4.8 x10(3)/mc L 07/01/2018 2:04 AM EDT [facility] [place] # 1.5(H) 0.0 - 1.3 x10(3)/mc L 07/01/2018 2:04 AM EDT [facility] Eos# 0.5 0.0 - 0.5 x10(3)/mc L 07/01/2018 2:04 AM EDT [facility] Baso # 0.3(H) 0.0 - 0.2 x10(3)/mc L 07/01/2018 2:04 AM EDT [facility] RBC Morph Macrocytic 07/01/2018 2:04 AM EDT [facility] Blood VENOUS BLOOD / Unknown Venipuncture / Unknown 07/01/2018 1:24 AM EDT 07/01/2018 1:40 AM EDT us Tarik Sheth MD HEMATOLOGY ORDERABLES Final Resu lt Performing Organization Address [facility] Co de Phone Number [facility] [address] [place] [address] * CREATINE KINASE (07/01/2018 1:24 AM EDT) CK 178 39 - 308 IU/L 07/01/2018 2:15 AM EDT [facility] Blood VENOUS BLOOD / Unknown Venipuncture / Unknown 07/01/2018 1:24 AM EDT 07/01/2018 1:45 AM EDT us Tarik Sheth MD CHEMISTRY ORDERABLES Final Resul t Performing Organization Address Access [facility] de Phone Number [facility] [address] [place] [address] * XR CHEST PA AND [...] Report Accession Number Collected Date/Time Received Date/Time [id number] 05/28/11 15:16 EDT 05/28/11 15:16 EDT Diagnosis Tonsils, excision: - Chronic lymphoid hyperplasia. ERASMO JANE MD (Electronically signed by) Verified: 05/31/2011 [facility] Clinical Information Chronic tonsillitis. Gross Description Received in formalin labeled with the patient s name and tonsils are undesignated 2 enlarged oval shaped palatine tonsils (each 4.0 x 2.0 x 1.8 cm). The mucosa surfaces are pale rhoades-red and smooth. Serial sections show uniform, rhoades-pink tissue without focal lesions. Tinning Equipment Tender sections of each tonsil are submitted in two cassettes./KY DO /[place] Microscopic Description Microscopic examination is performed and the findings corroborate the diagnosis. [facility] 05/28/2011 3:16 PM EDT us Patrice Mora MD PATHOLOGY ORDERABLES Final Resu lt Performing Organization Address City/[facility] Co de Phone Number [facility] [address] [place] [address] * (ABNORMAL) SMEAR REVIEW (07/21/2010 5:25 AM [...] HEMATOLOGY ORDERABLES Final Result Performing Organization Address City/[facility] Co de Phone Number [facility] [address] [place] [address] * VANCOMYCIN LEVEL TROUGH (07/21/2010 5:25 AM EST) Only the most recent of2 resultswithin the time period is included. Vanco Tr 12.33 7.00 - 15.00 mcg/mL [facility] Blood specimen (specimen) UPPER LIMB STRUCTURE / Unknown 07/21/2010 5:25 AM EST 07/21/2010 5:51 AM EST Narrative [facility] - 07/21/2010 6:48 AM EST Draw before dose of medication. us Lizandro Mcclain MD CHEMISTRY ORDERABLES Final Resul t [facility] [address] [place] [address] * CT SOFT TISSUE NECK W CONTRAST [...] (ABNORMAL) MONONUCLEOSIS SCREEN (07/17/2010 4:15 AM EDT) [place] Screen Positive(A ) Negative [facility] Blood specimen (specimen) UPPER LIMB STRUCTURE / Unknown 07/17/2010 4:15 AM EDT 07/17/2010 4:47 AM EDT us Louise Zuniga MD CHEMISTRY ORDERABLES Final Res ult [facility] [address] [place] [address] Visit Diagnoses Diagnosis Start Date Pharyngitis Acute [...] dehydrogenase (LDH) 02/16/2022 Coronary artery disease involving [place] coronary artery of [place] heart with unstable angina pectoris (HCC) 02/16/2022 Wide-complex tachycardia Paroxysmal ventricular tachycardia 02/16/2022 S/P catheter ablation of slow pathway Other postprocedural status 02/16/2022 Care Teams Milled Rubber Tender Relationship Specialty Start Date End Date Sharri House [address] [facility] [address] [place] [address] PCP - General 07/17/10
--- OUTSIDE RECORDS SUMMARY | 2025-09-10 07:27 | XMS_ITS | Encounter Summary ---
Author Organization [facility] Address [address] [place] [address] Care Team Providers Care Importer Or Exporter Name Role Phone EndyZeynep Gm TRUONG Primary Care Provider [phone] Encounter Details Date Type Department Care Team (Latest Contact Info) Description 07/14/2025 Travel Social History Tobacco Use Types Packs/Day [...] as of this encounter Functional Status * Travel Screening Question Answer Date of Assessment Author Have you traveled internatio jac[place] or domestically in the last month? No 07/14/2025 9:34 PM EST Mycha rt, Generic documented as of this encounter Mental Status * Travel Screening Question Answer Entry Date Author Have you traveled internatio jac[place] or domestically in the last month? No 07/14/2025 9:34 PM EST Mycha rt, Generic documented in this encounter Plan of Treatment Upcoming Encounters Date Type Department Care Team (Late Contact Info) Description 10/11/2025 9:00 AM EST Clinical Support [facility] [address] [place] [id number] Tiffany Leon, RD [address] [place] [address] 02/12/2026 11:00 AM EDT Office Visit [facility] [address] [place] [address] Sheyla Colin MD [address] [place] [address] documented as of this encounter [...] documented as of this encounter Care Teams Importer Or Exporter Relationship Specialty Start Date End Date Zeynep Schumacher, ALEXI [address] [place] [address] PCP - General 06/21/24 documented as of this encounter
--- OUTSIDE RECORDS SUMMARY | 2025-09-10 07:27 | XMS_ITS | Clinical Summary ---
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 08/01/20 23 Active cetirizine-pseudoe phedrine (ZyrTEC-D) 5-120 MG 12 hr tablet as needed. 03/05/20 24 Active [facility] Allergy Relief D [...] (ONE) TIME EACH DAY. 90 tablet 01/08/20 Active Additional Information Patient not taking.Reported on 07/18/2025 spironolactone (Aldactone) 50 MG tablet TAKE 1 TABLET (50 MG) BY MOUTH DAILY 90 tablet 01/08/20 Active Additional Information Patient not taking.Reported on 07/18/2025 carvedilol (Coreg) 6.25 MG tablet 01/07/20 Active sildenafil (Viagra) 100 MG tablet As Directed. PLEASE SEE ATTACHED DETAILED DIRECTIONS 06/05/20 Active Zepbound 5 MG/0.5ML solution auto-injector inject 5 mg (0.5 ml) subcutaneously weekly 06/17/20 Active Misc Natural Products (TURMERIC, CURCUMIN, PO) Take by mouth. A ctive milk thistle 175 MG tablet Take 1 tablet by mouth daily. Active Misc Natural Products (SUPER GREENS PO) Take by mouth. Acti ve lactulose (Kristalose) 10 g packetIndications: Decompensated cirrhosis (CMS/HCC),Hepatic encephalopathy (CMS/HCC),Chronic idiopathic constipation Take 1 packet by mouth nightly. 90 packet 3 07/18/20 Active Active Problems No known active problems Encounters Date Type Department Care Team Description 08/30/2025 Telephone [facility] [address] [place] [address] Sonja Coello MD 07/18/2025 8:00 AM EST Office Visit [facility] [address] [place] [address] Sheyla Colin MD Decompensated cirrhosis (CMS/HCC); Hepatic encephalopathy (CMS/HCC); Chronic idiopathic constipation 07/18/2025 Results Follow-Up [facility] [address] [place] [address] Sheyla Colin MD 07/18/2025 Travel 07/14/2025 Travel from Last 3 Months Family History [...] Pulse 76 07/18/2025 7:54 AM EST Temperature 36.6 C (97.9 F) 01/10/2025 8:10 AM EDT Respiratory Rate 15 01/04/2025 1:25 PM EDT Oxygen Saturation 98% 07/18/2025 7:54 AM EST Inhaled Oxygen Concentration - - Weight 71.3 kg (157 lb 3 oz) 07/18/2025 7:54 AM EST Height 177.8 cm (5' 10 ) 07/18/2025 7:54 AM EST Body Mass Index 22.55 07/18/2025 7:54 AM EST Plan of Treatment Upcoming Encounters Date Type Department Care Team (Late st Contact Info) Description 10/11/2025 9:00 AM EST Clinical Support [facility] [address] [place] [address] Tiffany Leon, RD [address] [place] [address] 02/12/2026 11:00 AM EDT Office Visit [facility] [address] [place] [address] Sheyla Colin MD [address] [place] [address] Health Maintenance Due Date Last Done Comments [facility]-Medicare Annual Wellness (AWV) 1972 [facility]-/Child/Adol SDOH Screenings 1972 XVV-CATYP-80 Vaccine (#1) 02/11/1973 [facility]- SDOH Screenings 1990 [facility]-Adult SDOH Screenings 1990 [facility]-DTaP,Tdap,and Td Vaccine s (1 - Tdap) 1991 [facility]-Hepatitis A Vaccines (1 of 2 - Risk 2-dose series) 1991 [facility]-Hepatitis B Vaccines (1 of 3 - 19+ 3-dose series) 1991 [facility]-Pneumococcal Vaccine: 50 + Years (1 of 2 - PCV) 1991 CT Colonography 2017 Colonoscopy 2017 FIT-DNA 2017 FIT 2017 FOBT 2017 Sigmoidoscopy 2017 [facility]-Colorectal Cancer Screening 2017 [facility]-Zoster Vaccines (1 of 2) 2022 [facility]-Influenza Vaccine (#1) 2025 [facility]-Depression Screening 11/01/2025 025, 11/01/2024 [facility]-HIV Screening Completed 06/21/2024 [facility]-Hepatitis C Screening Completed 06/21/2024 HPV Vaccines (No Doses Required) Completed [facility]-HIB Vaccines Aged Out No longer e ligible based on patient's age to complete this topic [facility]-IPV Vaccines Aged Out No longer e ligible based on patient's age to complete this topic [facility]-Rotavirus Vaccines Aged Out No lo nger eligible based on patient's age to complete this topic Procedures Procedure Name Priority Date/Time Associated Diagnosis Comments ALPHA FETOPROTEIN, SERUM Routine 07/18/2025 8:41 AM EST Decompensated cirrhosis (CMS/HCC) CBC WITH AUTO DIFFERENTIAL Routine 07/18/2025 8:41 AM EST Decompensated cirrhosis (CMS/HCC) PROTHROMBIN TIME(PT) / INR Routine 07/18/2025 8:41 AM EST Decompensated cirrhosis (CMS/HCC) COMPREHENSIVE METABOLIC PANEL, PLASMA Routine 07/18/2025 8:41 AM EST Decompensated cirrhosis (CMS/HCC) GAMMA GLUTAMYLTRANSFERASE, PLASMA Routine 07/18/2025 8:41 AM EST Decompensated cirrhosis (CMS/HCC) ACUTE HEPATITIS PANEL Routine 06/21/2024 11:15 AM EDT Alcoholic cirrhosis of liver without ascites (CMS/HCC) Other ascites HIV 1/2 ANTIBODY/ANTIGEN SCREEN WITH REFLEX TO HIV I/II DIFFERENTIATION Routine 06/21/2024 11:15 AM EDT Alcoholic cirrhosis of liver without ascites (CMS/HCC) Other ascites from Last 3 Months or Most Recently Relevant to Health Maintenance Results * Alpha Fetoprotein, Serum (07/18/2025 8:41 AM EST) Alpha Fetoprotein, Serum 2.4 <10.0 ng/mL 07/18/2025 11:46 AM EST [facility] Blood Venous blood specimen / Unknown Venipuncture / Unknown 07/18/2025 8:41 AM EST 07/18/2025 8:41 AM EST Narrative [facility] - 07/18/2025 11:46 AM EST Performed by Jose electrochemiluminescent immunoassay which is traceable to the 1st AFP IRP WHO Reference standard 72/255. Results obtained with different test methods or kits cannot be used interchangeably. us Sonja Coello MD LAB BLOOD ORDERABLES Fin al Result [facility] [address] [place] [address] * (ABNORMAL) Prothrombin Time/INR (07/18/2025 8:41 AM EST) Prothrombin Time 17.0(H) 12.0 - 14.3 sec LAB COAGULATION METHOD 07/18/2025 11:14 AM EST [facility] INR 1.4(H) 0.9 - 1.1 LAB COAGULATION METHOD 07/18/2025 11:14 AM EST [facility] Blood Venous blood specimen / Unknown Venipuncture / Unknown 07/18/2025 8:41 AM EST 07/18/2025 8:41 AM EST Narrative [facility] - 07/18/2025 11:14 AM EST OPTIMAL INR RANGES FOR PATIENT ON ORAL ANTICOAGULANT THERAPY Prevention of venous thromboembolism INR 2.0 to 3.0 In patients with heart disease: Atrial fibrillation INR 2.0 to 3.0 Valvular heart disease INR 2.0 to 3.0 Tissue heart valves INR 2.0 to 3.0 Mechanical prosthetic valves INR 2.5 to 3.5 Prevention of recurrent NE INR 2.5 to 3.5 Sonja Coello MD LAB BLOOD ORDERABLES Fin al Result [facility] [address] [place] [address] * (ABNORMAL) CBC and Differential (07/18/2025 8:41 AM EST) WBC Count 8.74 3.70 - 10.30 10*3/uL LAB HEMATOLOGY METHOD 07/18/2025 11:25 AM EST [facility] RBC Count 4.34(L) 4.60 - 6.10 10*6/uL LAB HEMATOLOGY METHOD 07/18/2025 11:25 AM EST [facility] HGB 13.9 13.7 - 17.5 g/dL LAB HEMATOLOGY METHOD 07/18/2025 11:25 AM EST [facility] HCT 41.2 40.0 - 51.0 % LAB HEMATOLOGY METHOD 07/18/2025 11:25 AM EST [facility] Platelet Count 299 155 - 369 10*3/uL LAB HEMATOLOGY METHOD 07/18/2025 11:25 AM EST [facility] MCV 95 79 - 98 fL LAB HEMATOLOGY METHOD 07/18/2025 11:25 AM EST [facility] MCH 32.0 26.0 - 32.0 pg LAB HEMATOLOGY METHOD 07/18/2025 11:25 AM EST [facility] MCHC 33.7 30.7 - 35.5 g/dL LAB HEMATOLOGY METHOD 07/18/2025 11:25 AM EST [facility] RDW 13.2 11.5 - 14.5 % LAB HEMATOLOGY METHOD 07/18/2025 11:25 AM [facility] MPV 10.1 8.8 - 12.5 fL LAB HEMATOLOGY METHOD 07/18/2025 11:25 AM [facility] nRBC 0.0 <=0.0 per 100 WBCs LAB HEMATOLOGY METHOD 07/18/2025 11:25 AM [facility] Differential Type Automated LAB HEMATOLOGY METHOD 07/18/2025 11:25 AM [facility] Neutrophils % 63 % LAB HEMATOLOGY METHOD 07/18/2025 11:25 AM [facility] Lymphocytes % 21 % LAB HEMATOLOGY METHOD 07/18/2025 11:25 AM [facility] Monocytes % 13 % LAB HEMATOLOGY METHOD 07/18/2025 11:25 AM [facility] Eosinophils % 2 % LAB HEMATOLOGY METHOD 07/18/2025 11:25 AM [facility] Basophils % 1 % LAB HEMATOLOGY METHOD 07/18/2025 11:25 AM [facility] Immature Granulocytes % 0 % LAB HEMATOLOGY METHOD 07/18/2025 11:25 AM [facility] Neutrophils Absolute 5.52 1.60 - 6.10 10*3/uL LAB HEMATOLOGY METHOD 07/18/2025 11:25 AM [facility] Lymphocytes Absolute 1.79 1.20 - 3.90 10*3/uL LAB HEMATOLOGY METHOD 07/18/2025 11:25 AM [facility] Monocytes Absolute 1.16(H) 0.30 - 0.90 10*3/uL LAB HEMATOLOGY METHOD 07/18/2025 11:25 AM [facility] Eosinophils Absolute 0.20 0.00 - 0.50 10*3/uL LAB HEMATOLOGY METHOD 07/18/2025 11:25 AM [facility] Basophils Absolute 0.05 0.00 - 0.10 10*3/uL LAB HEMATOLOGY METHOD 07/18/2025 11:25 AM [facility] Immature Granulocytes Absolute 0.02 0.00 - 0.06 10*3/uL LAB HEMATOLOGY METHOD 07/18/2025 11:25 AM [facility] Blood Venous blood specimen / Unknown Venipuncture / Unknown 07/18/2025 8:41 AM EST 07/18/2025 8:41 AM EST Narrative [facility] - 07/18/2025 11:25 AM EST Therapeutic decision making should be based on absolute values, rather than percentages. us Sonja Coello MD LAB BLOOD ORDERABLES Fin al Result Performing Organization Address City/[facility]/ZIP Co de Phone Number [facility] [address] [place] [address] * (ABNORMAL) GGT (07/18/2025 8:41 AM EST) GGT, Plasma 76(H) 8 - 61 U/L 07/18/2025 11:26 AM EST [facility] Blood Venous blood specimen / Unknown Venipuncture / Unknown 07/18/2025 8:41 AM EST 07/18/2025 8:41 AM EST us Sonja Coello MD LAB BLOOD ORDERABLES Fin al Result Performing Organization Address City/[facility]/ZIP Co de Phone Number [facility] [address] [place] [address] * (ABNORMAL) Comprehensive Metabolic Panel, Plasma (07/18/2025 8:41 AM EST) Glucose, Plasma 83 74 - 99 mg/dL 07/18/2025 11:26 AM EST [facility] BUN, Plasma 20 7 - 21 mg/dL 07/18/2025 11:26 AM EST [facility] Creatinine, Plasma 0.95 0.70 - 1.20 mg/dL 07/18/2025 11:26 AM EST [facility] BUN/Creatinine Ratio 21 07/18/2025 11:26 AM EST [facility] Sodium, Plasma 136 136 - 145 mmol/L 07/18/2025 11:26 AM EST [facility] Potassium, Plasma 4.3 3.6 - 4.9 mmol/L 07/18/2025 11:26 AM EST [facility] Chloride, Plasma 101 97 - 107 mmol/L 07/18/2025 11:26 AM EST [facility] CO2, Plasma 25 22 - 29 mmol/L 07/18/2025 11:26 AM EST [facility] Anion Gap 10 6 - 16 mmol/L 07/18/2025 11:26 AM EST [facility] Total Calcium, Plasma 9.8 8.9 - 10.2 mg/dL 07/18/2025 11:26 AM EST [facility] Total Protein 7.7 6.3 - 7.9 g/dL 07/18/2025 11:26 AM EST [facility] Albumin, Plasma 4.3 3.5 - 5.2 g/dL 07/18/2025 11:26 AM EST [facility] AST, Plasma 43 10 - 50 U/L 07/18/2025 11:26 AM EST [facility] ALT, Plasma 48 10 - 50 U/L 07/18/2025 11:26 AM EST [facility] Alkaline Phosphatase, Plasma 122(H) 40 - 115 U/L 07/18/2025 11:26 AM EST [facility] Total Bilirubin, Plasma 0.6 0.2 - 1.1 mg/dL 07/18/2025 11:26 AM EST [facility] eGFRcr 96.3 mL/min/1.7 3m*2 07/18/2025 11:26 AM EST [facility] Comment:Reported eGFRcr in m L/min/1.73m2 is based the CKD-EPI 2020 equation that does not use a race coefficient. Blood Venous blood specimen / Unknown Venipuncture / Unknown 07/18/2025 8:41 AM EST 07/18/2025 8:41 AM EST us Sonja Coello MD LAB BLOOD ORDERABLES Fin al Result [facility] [address] [place] [address] * HIV 1 & 2 Antibody/Antigen Screen (06/21/2024 11:15 AM EDT) HIV 1 & 2 Antibody/Antigen Screen Non Reactive Non Reactive 06/21/2024 1:22 PM EDT [facility] Comment:Screening for HIV 1 & 2 antibodies, and P24 antigen is NONREACTIVE. No confirmatory testing is required. Blood Venous blood specimen / Unknown Venipuncture / Unknown 06/21/2024 11:15 AM EDT 06/21/2024 11:17 AM EDT Sonja Coello MD LAB BLOOD ORDERABLES Fin al Result Performing Organization Address City/[facility] Co de Phone Number [facility] [address] [place] [address] * Acute Hepatitis Panel (06/21/2024 11:15 AM EDT) Hepatitis B Surf Antigen Negative Negative 06/21/2024 1:54 PM EDT [facility] Hepatitis C Antibody Negative Negative 06/21/2024 1:54 PM EDT [facility] Hepatitis A Antibody IgM Negative Negative 06/21/2024 1:54 PM EDT [facility] Hepatitis B Core Antibody IgM Negative Negative 06/21/2024 1:54 PM EDT [facility] Blood Venous blood specimen / Unknown Venipuncture / Unknown 06/21/2024 11:15 AM EDT 06/21/2024 11:17 AM EDT Sonja Coello MD LAB BLOOD ORDERABLES Fin al Result Performing Organization Address City/[facility] Co de Phone Number [facility] [address] [place] [address] from Last 3 Months or Most Recently Relevant to Health Maintenance Insurance [place] Care Teams Welding Equipment Sales Representative Relationship Specialty Start Date End Date Zeynep Schumacher APRN [address] [place] [address] PCP - General 06/21/24
--- NOTE | 2025-09-10 07:30 | US_ITS ---
FINAL REPORT TECHNIQUE: Sonographic images of the right upper quadrant were obtained. CLINICAL HISTORY: DECOMPENSATED CIRRHOSIS FINDINGS: PANCREAS: Unremarkable. LIVER: There is lobular contour to the liver. No focal hepatic lesions identified. The portal vein is patent. The hepatic veins are patent. GALLBLADDER: Gallstones. No gallbladder wall thickening or pericholecystic fluid. COMMON DUCT: 3 mm. Normal for age. RIGHT KIDNEY: There are several right renal cysts. There is a right hydronephrosis. FREE FLUID: None. OTHER: There is a small right effusion. IMPRESSION: Lobular liver. Gallstones. Reviewed, Interpreted and Dictated by Chiquita Kaur MD Transcribed by Marianna Brunson Authenticated and [facility]
== END 2025-09-10 23:59 | disposition home or self-care (01) ==
LOC: RAD 07:25
PROVIDERS: PCP Nurse Practitioner; Visit Provider Internal Medicine
DX: K80.20 Calculus of gallbladder without cholecystitis without obstruction (principal); K72.90 Hepatic failure, unspecified without coma; K74.60 Unspecified cirrhosis of liver
CPT/HCPCS: 76705